=== PATIENT | male | born 1980 | race Caucasian/White ===

== ENCOUNTER 2024-01-14 18:50 | Inpatient (IN) | payer OTHER, SELFPAY ==
[2024-01-14] VITALS (7 sets, daily range): BP systolic 104–158; BP diastolic 64–85; BMI 30.9
[2024-01-14] MEDS: OMNIPAQUE 50 ML PO (14:32)
[2024-01-14 14:53] LABS: % Basophils 0.3 % (0-2); % Eosinophils 0.1 % (0-6); % Immature Granulocytes 0.5 % (0-0.5); % Lymphocytes 6.1 % (20.5-51.1); % Monocytes 9.9 % (1.7-9.3); % Neutrophils 83.1 % (42.2-75.2); Absolute Immature Granulocytes 0.1 10^3/uL (0-0.05); Absolute Lymphocytes 0.9 10^3/uL (1.2-3.4); Absolute Monocytes 1.4 10^3/uL (0.1-0.6); Absolute Neutrophils 11.9 10^3/uL (1.4-6.5); Hematocrit 32.8 % (39.0-52.0); Hemoglobin 11.3 g/dL (13.0-18.0); Mean Corp Hgb Conc. 34.5 g/dL (33.0-37.0); Mean Corpuscular Hgb 28.8 pg (27.0-31.0); Mean Corpuscular Volume 83.7 fL (80.0-94.0); Mean Platelet Volume 9.3 fL (7.4-10.4); Nucleated Red Blood Cells % 0 % (-); Platelet Count 213 10^3/uL (130-400); Red Blood Cell Count 3.92 10^6/uL (4.70-6.10); Red Cell Dist. Width 13.9 % (11.5-14.5); White Blood Cell Count 14.3 10^3/uL (4.8-10.8)
[2024-01-14 15:05] LABS: PT 15.3 Sec (11.4-14.6)
[2024-01-14 15:07] LABS: Lactic Acid 0.7 mmol/L (0.7-2.0)
--- NOTE | 2024-01-14 15:47 | ED.GENMED ---
History of Present Illness
General
Chief Complaint: Abdominal Pain
Time Seen by Provider: 01/14/24 15:34
Travel History
Have you had any contact with someone who has COVID-19?: No
Do you have any symptoms of coronavirus? Fever > 100 degrees, chills, cough, shortness of breath, sore throat, loss of taste or smell, muscle aches, or headache?: Yes
Symptoms:: fever
History of Present Illness
History of Present Illness:
43-year-old male with history of perforated diverticulitis status post subtotal colectomy with ileostomy creation presents to the emergency department due to left upper quadrant abdominal pain. He has had multiple intra-abdominal abscesses as a
complication of his, states this feels very comparable. He developed a fever over the past 2 days prompting him to come to the emergency department. Outpatient colorectal surgeon is Dr. Galvez
Past History
Past History
ED Past Medical History: HTN, Hypercholesterolemia, NIDDM, Seizures and Other (History of alcohol abuse in the past, diverticulitis, perisplenic abscess); Negative Asthma
ED Past Surgical History: Bowel resection
Social History
Tobacco: Former smoker
Alcohol: Former
Drug: None
Personal: Single (Same sex partner)
Living: with family
Employment: Employed
Family History
Family History: Other (Grandmother with colon cancer)
Review of Systems
Review of Systems
Allergies reviewed?: Yes
All Other Systems: ROS reviewed and negative except as documented in HPI and ROS
Phy Exam
Physical Exam
Physical Exam:
GEN: Well appearing, NAD, WDWN
HEENT: Oral mucosa moist, no scleral icterus
Cardiac: Regular rate
Lung: No respiratory distress, no tachypnea
Abdomen; Limited by habitus, but markedly tender to LUQ. Midline laparotomy incision scar
MSK: No gross deformity or injuries
Skin: Good color, no pallor or jaundice, no rashes
Neuro: AO x3, moves all extremities freely
Psych: Calm, cooperative
Course
Orders/Labs/Results
Orders:
Orders
01/14/24 14:30
Iohexol [Omnipaque] 50 ml .ROUTE .STK-MED ONE
01/14/24 14:32
Iohexol [Omnipaque] See Protocol PO NOW STA
01/14/24 14:37
Complete Blood Count/With Diff Urgent
Comprehensive Metabolic Panel Urgent
Lactic Acid Q4H
Comment: ON ICE, CANCEL 2ND ORDER IF FIRST LACTIC ACID LEVEL <2
Prothrombin Time Urgent
Blood Culture Q30M
MICHELLE Source: Blood/Venous
Specimen Description:
Comment: FROM 2 SEPARATE SITES
01/14/24 Dinner
Clear Liquid
At Your Request: Full Participation
Does patient need a safe tray?: No
Blood Culture Q30M
MICHELLE Source: Blood/Venous
Specimen Description:
Comment: FROM 2 SEPARATE SITES
01/14/24 15:47
CT Abd/pel W Iv And Oral Contr Urgent
Comment:
Reason For Exam: abd pain, fever, hx of ileostomy
01/14/24 17:56
Piperacillin/Tazo 4.5 Gram [Zosyn] 4.5 gram in 100 ml IV NOW
01/14/24 18:13
Admit/Transfer Patient As Directed
Co-Sign Provider:
Level of Care: Inpatient admission
Assign to:: Medical/Surgical
Physician / Group: dahlia
Diagnosis: intraabdominal abscesses
Reason for Hospitalization: intraabdominal abscesses
Expected length of stay greater than two midnights?: Yes
ELOS- Estimated Length of Stay in days: 2
I certify the patient meets the requirements for IP care: Yes
01/14/24 18:14
Code Status As Directed
Resuscitation Status: Full Code
01/14/24 20:23
0.9% Sodium Chloride 1000 ml [Nss] 1,000 ml IV 125 mls/hr
Acetaminophen [Tylenol] 650 mg PO Q4HPRN PRN
Ferrous Sulfate [Feosol] 325 mg PO BID
Heparin 5,000 units SC Q12
Multivitamin [Theragran] 1 tablet PO BID
Pantoprazole [Protonix] 40 mg PO BID
01/14/24 20:23
ColoRectal Surgery Consult Routine
Consulting Provider: Ayden Galvez
Was physician already notified: Yes
Activity As Directed
Activity Level: As Tolerated
Vital Signs As Directed
Frequency: Per unit guidelines
DX Deep Vein Thrombosis Video Routine
01/14/24 22:00
Levetiracetam Extended Release [Keppra Xr (Extended Release)] 1,000 mg PO HS
Melatonin 3 mg PO HS
01/15/24 00:00
Piperacillin/Tazo 3.375 Gram [Zosyn] 3.375 gram in 50 ml IV Q6H
01/15/24 Breakfast
NPO
Allow oral meds: Yes
Allow clear liquids: Sips of Clears
Complete Blood Count/With Diff IN AM
Comprehensive Metabolic Panel IN AM
01/15/24 08:00
Escitalopram Oxalate [Lexapro] 20 mg PO DAILY
Abnormal Lab Results
01/14/24
14:37
WBC 14.3 H 10^3/uL
(4.8-10.8)
RBC 3.92 L 10^6/uL
(4.70-6.10)
Hgb 11.3 L g/dL
(13.0-18.0)
Hct 32.8 L %
(39.0-52.0)
Abs Immat Gran (auto) 0.1 H 10^3/uL
(0-0.05)
Absolute Neuts (auto) 11.9 H 10^3/uL
(1.4-6.5)
Absolute Lymphs (auto) 0.9 L 10^3/uL
(1.2-3.4)
Absolute Monos (auto) 1.4 H 10^3/uL
(0.1-0.6)
Neutrophils % 83.1 H %
(42.2-75.2)
Lymphocytes % 6.1 L %
(20.5-51.1)
Monocytes % 9.9 H %
(1.7-9.3)
PT 15.3 H Sec
(11.4-14.6)
Sodium 134 L mmol/L
(135-145)
Chloride 97 L mmol/L
(98-107)
Glucose 104 H mg/dl
(70-99)
01/14/24 14:37
01/14/24 14:37
Vital Signs
Initial and Last Documented VS:
Initial Vital Signs
Temp Pulse Resp BP Pulse Ox
98.8 F 95 17 158/85 99
01/14/24 14:25 01/14/24 14:25 01/14/24 14:25 01/14/24 14:25 01/14/24 14:25
Last Documented Vital Signs
Temp Pulse Resp BP Pulse Ox
98.6 F 79 20 142/78 98
01/14/24 21:03 01/14/24 21:03 01/14/24 21:03 01/14/24 21:03 01/14/24 21:03
MDM/Problems Addressed
MDM/Problems Addressed:
Large LUQ abscess seen on imaging. Reviewed w/ CRS, recommend admit for IV abx and IR consultation. Pt hemodynamically stable.
*Critical Care Note
Total Time (30-74mins, 75-104mins- exclusive of procedures): Not Applicable
ED Attending Note
-
Portions of this chart may have been created with voice recognition software.� Occasional wrong word or��sound alike� substitutions may have occurred due to the inherent limitations of voice recognition software.
Discharge Plan
Departure
Patient Disposition: Admit
Date of Disposition: 01/14/24
Time of Disposition: 17:56
Admit to: Med/Surg
Presentation/result/management discussed w/ accepting MD/DO: Hospitalist
Discharge Problem:
Intra-abdominal abscess
Interventions
Interventions:
*Risk Screen - Suicide Last Done: 01/14/24 14:26
*General Assessment Last Done: 01/14/24 14:26
*Neglect/Abuse Screening Last Done: 01/14/24 14:26
ED- Fall Risk Assessment Last Done: 01/14/24 15:27
*ED COVID-19 Vaccine History Last Done: 01/14/24 14:26
*Nursing Disposition Last Done: 01/14/24 20:20
TW-[id number]-Mvtgomacwc Assessment Last Done: 01/14/24 15:39
Discharge Date and Time
Discharge Date/Time: 01/14/24 20:20
[2024-01-14 15:50] LABS: ALT (SGPT) 28 U/L (0-50); AST (SGOT) 32 U/L (17-59); Albumin 4.3 g/dl (3.5-5.0); Alkaline Phosphatase 94 U/L (38-126); Blood Urea Nitrogen 18 mg/dl (9-20); Calcium 9.6 mg/dl (8.4-10.2); Carbon Dioxide 22 mmol/L (22-30); Chloride 97 mmol/L (98-107); Estimated Creatinine Clearance > 125 ml/min; Glucose 104 mg/dl (70-99); Sodium 134 mmol/L (135-145); Total Bilirubin 1.1 mg/dl (0.2-1.3); Total Protein 7.9 g/dl (6.3-8.2); eGFR > 60.00
--- NOTE | 2024-01-14 18:17 | HPS.HSE ---
Family Physician
-
Family Physician: Joseph Heard
Chief Complaint
-
abdominal pain
History of Present Illness
43-year-old male past medical history of colonic perforation due to diverticular stricture status post exploratory laparotomy/ileostomy and recurrent intra-abdominal abscesses, parastomal hernia seizure disorder, GERD, anxiety/depression, history of
DVT presenting with epigastric/left upper quadrant abdominal pain over the past few days. Did have some nausea but no vomiting. Denies any diarrhea from the ileostomy bag. He has been having fever over the past few days.
He denies smoking or alcohol use.
Patient was last admitted in April 2023 for intra-abdominal collection status post drainage by IR.
Medical History
Past Medical History
Past Medical History: Reports Other ( colonic perforation due to diverticular stricture status post exploratory laparotomy/ileostomy and recurrent intra-abdominal abscesses, parastomal hernia seizure disorder, GERD, anxiety/depression, history of
DVT)
Past Surgical History: Reports Other ( ileostomy )
Social History
Tobacco: Non-smoker
Alcohol: None
Drug: None
Family History
Family History: Not pertinent
Allergies / Home Medications
Allergies reflects when Allergies were last updated in [employer].
Home Medications with original date entered in [employer]
Allergy/Medication List:
Allergies
Allergy/AdvReac Type Severity Reaction Status Date / Time
No Known Allergies Allergy Verified 01/14/24 14:26
Home Medications
levetiracetam 500 mg tablet,extended release 24 hr 1,000 mg (2 x 500 mg) PO HS ##60 04/28/19
pantoprazole 40 mg tablet,delayed release (Protonix) 40 mg PO BID #20 tabs 04/06/22
escitalopram oxalate 20 mg tablet 20 mg PO DAILY Depression 05/14/23
melatonin 3 mg tablet 3 mg PO HS Sleep 05/14/23
multivitamin 1 tab PO BID Supplement 05/14/23
sildenafil (pulm.hypertension) 20 mg tablet 20 mg PO DAILY PRN ed 05/14/23
ferrous sulfate 325 mg (65 mg iron) tablet (FeroSul) 325 mg PO BID Supplement 01/14/24
Review of Systems
-
History Source: Patient
A 12 point ROS was completed and negative except as noted: Yes
Constitutional: Reports No Symptoms
EENT: Reports No Symptoms
Respiratory: Reports No Symptoms
Cardiac: Reports No Symptoms
Abdomen/GI: Reports See HPI
: Reports No Symptoms
Musculoskeletal: Reports No Symptoms
Skin: Reports No Symptoms
Neurological: Reports No Symptoms
Endocrine: Reports No Symptoms
Hematologic/Lymphatic: Reports No Symptoms
Psych: Reports No Symptoms
Physical Exam
Vital Signs
Vital Signs
Temp Pulse Resp BP Pulse Ox
98.8 F 78 25 134/78 96
01/14/24 14:25 01/14/24 16:15 01/14/24 16:15 01/14/24 15:44 01/14/24 16:15
Physical Exam
General: Well Developed, Well Nourished and No Apparent Distress
HEENT: NormoCephalic, Moist mucous membranes and Atraumatic
Respiratory: Clear
Cardiac: S1/S2 and Regular Rhythm; No Murmur or Rub
GI: Soft, Non Distended, Normal Bowel Sounds and Tender (LUQ ); No Organomegaly
Rectal: Deferred by Provider
Musculoskeletal: No Clubbing, No Cyanosis and No Edema
Skin: No Rash
Neuro: Nonfocal/grossly intact
Laboratory Results
-
01/14/24 14:37
01/14/24 14:37
Laboratory Results
PT 15.3 Sec (11.4-14.6) H 01/14/24 14:37
INR 1.20 01/14/24 14:37
Lactic Acid Cancelled 01/14/24 18:30
Total Bilirubin 1.1 mg/dl (0.2-1.3) 01/14/24 14:37
AST 32 U/L (17-59) 01/14/24 14:37
ALT 28 U/L (0-50) 01/14/24 14:37
Alkaline Phosphatase 94 U/L (38-126) 01/14/24 14:37
Data Reviewed
-
Lab Data: Labs Reviewed by me
Old Records: Reviewed
Impression/Plan
-
IMPRESSION:
PLAN:
# Enlarged left upper quadrant abscess along the margin of the greater curvature of the stomach
# Possible small chronic abscess superior lateral to the right lobe of the liver
# History of colonic perforation due to diverticular stricture status post laparotomy/ileostomy
# History of recurrent intra-abdominal abscesses
-Recent abscess culture from April 2023 shows Streptococcus viridans, prior abscess cultures from March 2020 showed Klebsiella, haemophilus and prior to that stenotrophomonas, Enterococcus and coagulase-negative staph October 2019
-Check blood cultures
-IV fluids
-Zosyn
-Colorectal surgery consulted
-IR consulted for drainage of abscess
-Clear liquid diet, NPO past midnight
Large right lower quadrant anterior abdominal wall parastomal hernia
Seizure disorder
-Continue Keppra
GERD
-Continue Protonix
Anxiety/depression
-Continue Lexapro
History of DVT
Chronic anemia
-Continue iron supplement
Full code
DVT prophylaxis�heparin
N.p.o.
[2024-01-14] MEDS: ZOSYN 100 IV (18:39)
[2024-01-14] MEDS: DILAUDID 0.5 MG IV (19:41)
[2024-01-14] MEDS: FLUSH (NSS) 1 FLUSH IV (19:42)
[2024-01-14] MEDS: HEPARIN 5000 UNITS SC (20:59)
[2024-01-14] MEDS: PROTONIX 40 MG PO (20:59)
[2024-01-14] MEDS: THERAGRAN 1 TABLET PO (20:59)
[2024-01-14] MEDS: NSS 1000 IV (20:59)
[2024-01-14] MEDS: FEOSOL 325 MG PO (20:59)
--- NOTE | 2024-01-14 21:33 | PTCARENOTE ---
Received patient from ED via WC approx 21:00. Pt AAOX3. Pox: 96% RA. Call hughes within reach. Plan of care ongoing.
[2024-01-14] MEDS: MELATONIN 3 MG PO (21:46)
[2024-01-14] MEDS: KEPPRA XR (EXTENDED RELEASE) 1000 MG PO (21:46)
[2024-01-15] VITALS (14 sets, daily range): BP systolic 58–128; BP diastolic 61–99; BMI 30.7
[2024-01-15] MEDS: ZOSYN 50 IV ×4 (00:51→16:59)
[2024-01-15] MEDS: TYLENOL 650 MG PO ×4 (00:54→21:46)
[2024-01-15] MEDS: DILAUDID 0.5 MG IV ×2 (02:27→20:16)
[2024-01-15] MEDS: NSS 1000 IV ×3 (05:30→21:46)
[2024-01-15 05:31] LABS: % Basophils 0.3 % (0-2); % Eosinophils 1.1 % (0-6); % Immature Granulocytes 0.6 % (0-0.5); % Lymphocytes 10.2 % (20.5-51.1); % Monocytes 10.8 % (1.7-9.3); Absolute Eosinophils 0.1 10^3/uL (0-0.7); Absolute Immature Granulocytes 0.1 10^3/uL (0-0.05); Absolute Monocytes 1.1 10^3/uL (0.1-0.6); Absolute Neutrophils 7.6 10^3/uL (1.4-6.5); Hematocrit 30.7 % (39.0-52.0); Hemoglobin 10.1 g/dL (13.0-18.0); Mean Corp Hgb Conc. 32.9 g/dL (33.0-37.0); Mean Corpuscular Hgb 28.8 pg (27.0-31.0); Mean Corpuscular Volume 87.5 fL (80.0-94.0); Mean Platelet Volume 9.9 fL (7.4-10.4); Nucleated Red Blood Cells % 0 % (-); Platelet Count 195 10^3/uL (130-400); Red Blood Cell Count 3.51 10^6/uL (4.70-6.10); Red Cell Dist. Width 13.8 % (11.5-14.5); White Blood Cell Count 9.9 10^3/uL (4.8-10.8)
[2024-01-15 05:58] LABS: ALT (SGPT) 26 U/L (0-50); AST (SGOT) 24 U/L (17-59); Albumin 3.6 g/dl (3.5-5.0); Alkaline Phosphatase 87 U/L (38-126); Blood Urea Nitrogen 13 mg/dl (9-20); Calcium 8.7 mg/dl (8.4-10.2); Carbon Dioxide 26 mmol/L (22-30); Chloride 101 mmol/L (98-107); Estimated Creatinine Clearance > 125 ml/min; Glucose 88 mg/dl (70-99); Potassium 3.9 mmol/L (3.5-5.1); Sodium 135 mmol/L (135-145); Total Bilirubin 0.9 mg/dl (0.2-1.3); Total Protein 6.8 g/dl (6.3-8.2); eGFR > 60.00
[2024-01-15] MEDS: LEXAPRO 20 MG PO (07:43)
[2024-01-15] MEDS: PROTONIX 40 MG PO ×2 (07:43→20:16)
[2024-01-15] MEDS: HEPARIN 5000 UNITS SC ×2 (07:44→20:20)
[2024-01-15] MEDS: THERAGRAN 1 TABLET PO ×2 (07:44→20:16)
[2024-01-15] MEDS: FEOSOL 325 MG PO ×2 (07:44→20:16)
--- NOTE | 2024-01-15 08:03 | W.PN.HOSP.TC ---
Today's Communication/Plan
-
Awaiting IR intervention for drainage of abscess
Continue Dilaudid for pain
Resolving leukocytosis on Zosyn continue
CR asked to see well-known to Dr. Galvez
Assessment / Plan
Assessment / Plan
43-year-old male past medical history of colonic perforation due to diverticular stricture status post exploratory laparotomy/ileostomy and recurrent intra-abdominal abscesses, parastomal hernia seizure disorder, GERD, anxiety/depression, history of
DVT presenting with epigastric/left upper quadrant abdominal pain over the past few days. Did have some nausea but no vomiting. Denies any diarrhea from the ileostomy bag. He has been having fever over the past few days.
He denies smoking or alcohol use.
Patient was last admitted in April 2023 for intra-abdominal collection status post drainage by IR.
# Enlarged left upper quadrant abscess along the margin of the greater curvature of the stomach
# Possible small chronic abscess superior lateral to the right lobe of the liver
# History of colonic perforation due to diverticular stricture status post laparotomy/ileostomy
# History of recurrent intra-abdominal abscesses
-Recent abscess culture from April 2023 shows Streptococcus viridans, prior abscess cultures from March 2020 showed Klebsiella, haemophilus and prior to that stenotrophomonas, Enterococcus and coagulase-negative staph October 2019
-Check blood cultures
-IV fluids
-Zosyn
-Colorectal surgery consulted
-IR consulted for drainage of abscess
-Clear liquid diet, NPO past midnight
Large right lower quadrant anterior abdominal wall parastomal hernia
Seizure disorder
-Continue Keppra p.o. for now
GERD
-Continue Protonix
Anxiety/depression
-Continue Lexapro
History of DVT
Chronic anemia
-Continue iron supplement
Full code
DVT prophylaxis�heparin
N.p.o. except meds
Anticipated Discharge: 24 - 48 hours
Subjective/Interval History
-
Date of Service: January 15, 2024
. Patient is referred right talus to the left upper quadrant since he came into otherwise CSF fairly comfortable presently had relief with Dilaudid when he needed it. For IR later today for drainage
Objective Data
-
Labs:
Laboratory Results
01/15/24
04:39
WBC 9.9
Hgb 10.1 L
Hct 30.7 L
Plt Count 195
Sodium 135
Potassium 3.9
Chloride 101
Carbon Dioxide 26
BUN 13
Creatinine 0.7
Glucose 88
Calcium 8.7
Total Bilirubin 0.9
AST 24
ALT 26
Alkaline Phosphatase 87
Vital Signs:
Vital Signs
Temp Pulse Resp BP Pulse Ox
97.7 F 57 14 111/64 99
01/15/24 07:42 01/15/24 07:42 01/15/24 07:42 01/15/24 07:42 01/15/24 07:42
I&O
01/14/24 01/15/24 01/16/24
06:59 06:59 06:59
Intake Total 1350 / 1350
Balance 1350 / 1350
Review of Systems
-
History Source: Patient
Constitutional: Reports No Symptoms
Respiratory: Reports No Symptoms
Abdomen/GI: Reports Abdominal Pain (Left upper into rib cage) and Pain
Hematologic / Lymphatic: Reports No Symptoms
Physical Exam
-
General: Well Developed
HEENT: Normocephalic
Cardiac: Regular Rhythm
GI: Soft and Tender (Left upper quadrant subcostal)
Skin: Warm
Neuro: Awake and Alert
Data Reviewed
-
Total Time Spent with Patient (in minutes): 56
Labs: Labs Reviewed by me (White count down to 9.9 from 14.4/sodium trending up to 135 from 134/LFTs normal)
--- NOTE | 2024-01-15 09:16 | CON.CRS ---
Consultation
-
Date/Time Consultation Requested: 01/14/2024, 20:23
Date/Time Consultation Performed: 01/14/2024, 8:30
Requesting Provider: Carlitos Livingston MD
Performing Provider: Archie Soares MD
Reason for Consultation: intraabdominal abscess
Medical History
-
Chief Complaint: abdominal pain
History of Present Illness:
43yo male known to our service after undergoing an emergency subtotal colectomy on 03/09/19 for a perforated ascending colon and ischemic changes of the entire colon proximal to a high-grade diverticular stricture in the sigmoid colon. There was
marked contamination throughout the abdomen and he was critically ill for weeks. He went back for a washout and creation of an ileostomy. Since that time he has had several drains placed for various collections. His last drain was removed from the
left subdiaphragmatic space on 03/27/21. A few small collections remained despite antibiotics and he has been asymptomatic until 04/2024 where he was found to have 2 intraabdominal collections that was aspirated by IR. He was discharged on antibiotics
and had done well since.
He presented to the Er last night complaining of abdominal pain, fevers, and cold hands, all of which occur when he had abscesses before. He states the abdominal pain 'comes and goes'. Last night it was near his left upper armpit and was a 9/10. Now
he had no pain. He denies nausea or vomiting. He denies chest pain or SOB. He has no issues with urination. He is able to have regular bowel movements.
His WBC was 14.3 on admission but now is 9.9. He remains afebrile. CT A/P shows a large 8.4 cm abscess in the left upper quadrant of the abdomen located along the anterolateral margin of the greater curvature of the stomach which has enlarged since
05/14/2023 and a 4.9 cm loculated fluid collection superolateral to the right lobe of the liver which could be a small chronic abscess. We have been consulted for further surgical opinion.
Past Medical History
Past Medical History: Other (HTN, Psychiatric (anxiety/depression) and Seizures)
Past Surgical History: Other (03/09/2019- Exploratory laparotomy, subtotal colectomy and end ileostomy, 03/16/2019- ex lap, washout of abscesses, 03/20/2019- Exploratory laparotomy and washout of the abdomen with insertion of drains)
Social History
Tobacco: Non-Smoker
Alcohol: None
Drug: None
Family History
Family History: Reviewed & Not Pertinent
Allergies / Home Medications
Allergy/AdvReac Type Severity Reaction Status Date / Time
No Known Allergies Allergy Verified 01/14/24 14:26
�Medication �Instructions �Recorded �Confirmed �Type
levetiracetam 500 mg 1,000 mg (2 x 500 mg) PO HS ##60 04/28/19 01/14/24 Rx
tablet,extended release 24 hr
pantoprazole 40 mg tablet,delayed 40 mg PO BID #20 tabs 04/06/22 01/14/24 Rx
release (Protonix)
escitalopram oxalate 20 mg tablet 20 mg PO DAILY Depression 05/14/23 01/14/24 History
melatonin 3 mg tablet 3 mg PO HS Sleep 05/14/23 01/14/24 History
multivitamin 1 tab PO BID Supplement 05/14/23 01/14/24 History
sildenafil (pulm.hypertension) 20 20 mg PO DAILY PRN ed 05/14/23 01/14/24 History
mg tablet
ferrous sulfate 325 mg (65 mg 325 mg PO BID Supplement 01/14/24 01/14/24 History
iron) tablet (FeroSul)
Review of Systems
-
History Source: Patient
Constitutional: Fever
Abdomen/GI: Abdominal Pain
Musculoskeletal: Other (cold hands b/l)
A 10 point review of systems was completed, and was negative except as per HPI.
Physical Exam
Vital Signs
Temp 97.7 F 01/15/24 07:42
Pulse 57 01/15/24 07:42
Resp Rate 14 01/15/24 07:42
Blood pressure 111/64 01/15/24 07:42
SaO2 99 01/15/24 07:42
01/14/24 01/15/24 01/16/24
06:59 06:59 06:59
Actual Weight 103.419 kg
Body Mass Index (BMI) 30.9
Lab Results / Allergies
01/15/24 04:39
01/15/24 04:39
WBC 9.9 10^3/uL (4.8-10.8) 01/15/24 04:39
Hgb 10.1 g/dL (13.0-18.0) L 01/15/24 04:39
Hct 30.7 % (39.0-52.0) L 01/15/24 04:39
Plt Count 195 10^3/uL (130-400) 01/15/24 04:39
Abs Immat Gran (auto) 0.1 10^3/uL (0-0.05) H 01/15/24 04:39
Neutrophils % 77.0 % (42.2-75.2) H 01/15/24 04:39
Allergy/AdvReac Type Severity Reaction Status Date / Time
No Known Allergies Allergy Verified 01/14/24 14:26
Physical Exam
General: Well Developed, Well Nourished and No Apparent Distress
GI: Soft and Tender (LUQ/LLQ - mild, non distended, old midline scar in place, ileostomy warm and pink with output)
Neuro: AO x 3
Data Reviewed
-
CT Scan: Image Personally Visualized and interpreted, Report Reviewed by me and Discussed with Patient
Labs: Labs Reviewed by me, Discussed with Physician and Discussed with Patient
Old Records: Reviewed
Assessment / Plan
-
Assessment: 43 yo male with a complex PMH due to an emergency subtotal colectomy on 03/09/19 for a perforated ascending colon and ischemic changes of the entire colon proximal to a high-grade diverticular stricture in the sigmoid colon, s/p ileostomy
and IR aspirations of abscesses, presents with abdominal pain/fever and found to have a large 8.4 cm abscess in the left upper quadrant of the abdomen located along the anterolateral margin of the greater curvature of the stomach which has enlarged
since 05/14/2023 and a 4.9 cm loculated fluid collection superolateral to the right lobe of the liver which could be a small chronic abscess
Plan:
1. IR consult placed for drainage of abscesses today.
2. Remain NPO for IR procedure.
3. Continue with IV antibiotics.
4. Okay for a regular diet post IR procedure.
5. No plans for surgery at this time, discussed with patient/hospitalist. Will follow.
--- NOTE | 2024-01-15 13:50 | PTCARENOTE ---
Patient to Interventional Radiology via stretcher
--- NOTE | 2024-01-15 15:05 | W.PN.UPDATE ---
Update Note
Progress Note Update
- CT guided drain placed into LUQ abscess
- 10F drain. 60 mL of purulent fluid aspirated after placement. Samples collected/sent
- Pt tolerated well. Drain orders placed.
--- NOTE | 2024-01-15 15:56 | PTCARENOTE ---
Patient received from interventional radiology in stretcher; Ambulated into room; IVF infusing; NAYELI drain to LUQ intact with sanguinous output; Assessment ongoing
[2024-01-15] MEDS: KEPPRA XR (EXTENDED RELEASE) 1000 MG PO (21:46)
[2024-01-15] MEDS: MELATONIN 3 MG PO (21:46)
[2024-01-16] MEDS: DILAUDID 0.5 MG IV (00:01)
[2024-01-16 02:58] VITALS: BP 114/68
[2024-01-16 04:52] LABS: Hematocrit 31.9 % (39.0-52.0); Hemoglobin 10.6 g/dL (13.0-18.0); Mean Corp Hgb Conc. 33.2 g/dL (33.0-37.0); Mean Corpuscular Hgb 29.2 pg (27.0-31.0); Mean Corpuscular Volume 87.9 fL (80.0-94.0); Mean Platelet Volume 9.2 fL (7.4-10.4); Platelet Count 206 10^3/uL (130-400); Red Blood Cell Count 3.63 10^6/uL (4.70-6.10); Red Cell Dist. Width 13.7 % (11.5-14.5)
[2024-01-16] MEDS: ZOSYN 50 IV ×2 (05:10)
[2024-01-16 05:29] LABS: Blood Urea Nitrogen 12 mg/dl (9-20); Calcium 8.2 mg/dl (8.4-10.2); Carbon Dioxide 28 mmol/L (22-30); Chloride 107 mmol/L (98-107); Estimated Creatinine Clearance > 125 ml/min; Glucose 107 mg/dl (70-99); Potassium 4.1 mmol/L (3.5-5.1); Sodium 136 mmol/L (135-145); eGFR > 60.00
[2024-01-16 07:00] VITALS: BP 104/61
[2024-01-16] MEDS: THERAGRAN 1 TABLET PO (07:54)
[2024-01-16] MEDS: PROTONIX 40 MG PO (07:54)
[2024-01-16] MEDS: LEXAPRO 20 MG PO (07:55)
[2024-01-16] MEDS: HEPARIN 5000 UNITS SC (07:55)
[2024-01-16] MEDS: TYLENOL 650 MG PO (07:55)
[2024-01-16] MEDS: FEOSOL 325 MG PO (07:55)
--- NOTE | 2024-01-16 08:33 | W.PN.CRS1 ---
Addendum entered and electronically signed by Archie Soares MD 01/16/24 15:01:
Per chart clarification, unable to determine if abscess is associated with prior surgery
Original Note:
Today's Communication / Plan
-
continue IR drain
continue abx
ok for d/c from our perspective with drain study in 2-3 weeks
Assessment/Plan
-
POD#1 IR drain into LUQ collection
1. Vitals normal. WBC down to 7.0 from 9.9.
2. Continue IV antibiotics, convert to po as an outpatient.
3. Continue IR drain at home. Monitor daily outputs.
4. He will need a drain study in 2-3 weeks and a follow up appointment with Dr. Galvez. Will arrange the drain study.
5. Continue regular diet.
6. Okay for discharge from our standpoint. Follow up discussed. Discussed with hospitalist.
Subjective Data
Subjective Data
Date of Service: January 16, 2024
Patient states he feels 'great'. He has no complaints. He is tolerating a diet and has no nausea or vomiting.
Objective Data
-
Vital Signs
Temp Pulse Resp BP Pulse Ox
97.4 F 52 16 104/61 96
01/16/24 07:00 01/16/24 07:00 01/16/24 07:00 01/16/24 07:00 01/16/24 07:00
Intake & Output
01/15/24 01/16/24 01/17/24
06:59 06:59 06:59
Intake Total 1350 / 1350 4440 / 4440
Output Total 60 / 60
Balance 1350 / 1350 4380 / 4380
Intake:
Oral fluids 1380 / 1380
IV fluids (Total) 1250 / 1250 2850 / 2850
NSS 100 / 100
IV piggybacks 100 / 100 200 / 200
Amount instilled into Drain (
Total)
Left Upper Abdomen
Output:
Drain Output (Total)
Left Upper Abdomen
Other:
Number of approximated MODERATE 1
amounts of urine
Lab Results
01/16/24 04:41
01/16/24 04:41
Physical Exam
-
General: No Acute Distress and AOx3
Abdomen: Soft, Non Distended, Tender (mildly tender around the drain) and Other (drain with murky serosanguinous output)
Skin: Warm and Dry
--- NOTE | 2024-01-16 09:32 | CM ---
CM following re: discharge planning.
Reviewed pt's chart, met with pt.
Pt is a 43 year old male, admitted with primary dx of POD#1 IR drain into LUQ collection.
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
Discharge order is noted. Pt is aware. Pt stated he has been caring for drain before, knows how to manage and he stated he does not need any after care VN services. Pt stated he will drive home.
D/C plan: home with no needs. Pt will follow up with colorectal surgeon in 2-3 weeks for drain study.
No after care VN services needs identified at this time.
--- NOTE | 2024-01-16 12:25 | PN.CDI ---
CDI
- -
CDI:
Physician Documentation Request
Admit Date: 01/14/24 18:50
Dear Mirella Cagle,
Patient presents to ED with complaints of left upper quadrant abdominal pain. ED record states pt has history of perforated diverticulitis status post subtotal colectomy with ileostomy creation. ' He has had multiple intra-abdominal abscesses....'
A LUQ abscess of 8.4 cm, 4.9 cm collection near the liver was found. Drain placed by IR
Please clarify if a relationship exist between these conditions:
Yes, abscess is related to/associated with/due to prior surgery.
No, abscess is not related to/associated with/due to prior surgery
Unable to determine
Use of terms such as suspected, likely, concern for, or probable (associated with a specific diagnosis that is being evaluated, monitored, or treated as if it exists) are acceptable and can be coded in the inpatient setting, when documented at the
time of discharge.
Thank you,
Jenna Gamez RN, BSN
CDI Specialist
tiger text
Please use your independent medical judgment in providing your response.
--- NOTE | 2024-01-30 11:18 | W.DCSUMMARY ---
Discharge Summary
Discharge Data
Date of Admission: 01/14/24
Date of Discharge: 01/16/24
-
Pending Results: Yes
Additional Pending Results:
At time of discharge still pending culture results from IR drainage of abdominal abscess turned out to be positive for viridans strep as prior
Hospital Course
43-year-old male with PMH of diverticular stricture with proximal perforation s/p ex lap and subtotal colectomy with end ileostomy in 2019, has had multiple abdominal abscesses s/p IR�guided drains (all since removed) who presents with 2 to 3 days
of mild abdominal pain in the LUQ/left flank associated with fevers, WBC 14.3, CT showing LUQ abscess of 8.4 cm, 4.9 cm collection near the liver, likely chronic, and large parastomal hernia
Tmax 100.0, VSS, ABD soft, nondistended, mildly TTP in the LUQ/left flank, no R/G; ostomy pink and productive
WBC 7.9
Patient was admitted to the hospitalist service with consultation to colorectal service.
� No acute surgical intervention currently indicated; recommend nonoperative measures with IR consult for possible percutaneous drainage
�He was kept n.p.o. with IVF; okay for regular diet after IR�guided drain
� Pain control with Tylenol/Toradol, avoid narcotics if possible
� Continue IV Zosyn with transition to oral antibiotic after drainage; send fluid for culture
�CT guided drain placed into LUQ abscess
- 10F drain. 60 mL of purulent fluid aspirated after placement. Samples collected/sent/is like prior presentations grew out viridans strep results obtained after discharge
-Patient placed on a course of Augmentin 875 mg twice a day for next 10 days
- Pt tolerated well. Drain orders placed.
-Prior experience the patient knows how to manage the drain in place he was advised to follow-up with colorectal surgery in a couple weeks for drain study as an outpatient with follow-up with Dr. Galvez
Discharge Plan
-
Patient Disposition: Home (Routine Discharge)
Discharge Diagnosis/Procedures: Recurrent abdominal abscesses post history of diverticular stricture with proximal perforation and status post exploratory laparotomy and subtotal colectomy back in 2019 with end ileostomy
Diet: Low Fiber
Activity: No restrictions and As tolerated
Driving Restrictions: As prior to admission
Referrals:
Ayden Galvez MD [Active] - in two to three weeks
Joseph Heard DO [Family Provider] -
Prescriptions:
New
amoxicillin-pot clavulanate 875-125 mg tablet
1 tab PO BID Qty: 20 0RF
sodium chloride 0.9 % (flush) [Normal Saline Flush] Syringe
5 ml intra-catheter DAILY Qty: 35 0RF
Continued
levetiracetam 500 MG tablet extended release 24 hr
1,000 mg PO HS Qty: 60 0RF
pantoprazole [Protonix] 40 mg tablet,delayed release (DR/EC)
40 mg PO BID Qty: 20 0RF
multivitamin Tablet
1 tab PO BID
melatonin 3 mg Tablet
3 mg PO HS
escitalopram oxalate 20 mg tablet
20 mg PO DAILY
sildenafil (pulm.hypertension) 20 mg tablet
20 mg PO DAILY PRN (Reason: ed)
ferrous sulfate [FeroSul] 325 MG tablet
325 mg PO BID
Discharge Orders:
Discharge Patient (As Directed); Ordered 01/16/24
Ordered By: Henry Winter
Discharge Date and Time
Discharge Date/Time: 01/16/24 10:50
Print Language: INDONESIAN
== END 2024-01-16 10:50 | disposition home or self-care (01) | DRG 373 ==
LOC: 2 SOUTH 18:50
PROVIDERS: Emergency Medicine; ADMITTING PHYSICIAN Hospitalist; ATTENDING PHYSICIAN Internal Medicine; EMERGENCY PHYSICIAN Emergency Medicine; FAMILY PHYSICIAN Family Medicine; OTHER PHYSICIAN Surgery
PROC: 0W9G30Z Drainage of Peritoneal Cavity with Drainage Device, Percutaneous Approach (ICD-10-PCS; 2024-01-15)
DX: K65.1 Peritoneal abscess (principal); Z87.891 Personal history of nicotine dependence; K43.5 Parastomal hernia without obstruction or gangrene; G40.909 Epilepsy, unspecified, not intractable, without status epilepticus; K21.9 Gastro-esophageal reflux disease without esophagitis; F32.A Depression, unspecified; F41.9 Anxiety disorder, unspecified; D64.9 Anemia, unspecified
CPT/HCPCS: 49406; 74177; 80048; 80053; 83605; 85025; 85027; 85610; 87040; 87070; 87205; 96374; 99152; 99285; Q9967

== ENCOUNTER → 2024-02-20 09:54 | Outpatient (REF) | payer OTHER, SELFPAY ==
[2024-02-20 10:00] VITALS: BP 117/93; BP_SYST 71
== END ==
LOC: RADI 09:54
PROVIDERS: ATTENDING PHYSICIAN Surgery; FAMILY PHYSICIAN Family Medicine
DX: K65.1 Peritoneal abscess (principal)
CPT/HCPCS: 49424; 76080

== ENCOUNTER 2024-02-24 05:02 | Inpatient (IN) | payer OTHER, SELFPAY ==
[2024-02-24] VITALS (18 sets, daily range): BP systolic 94–134; BP diastolic 67–83; BMI 32.3; BMI 31.3
--- NOTE | 2024-02-24 03:01 | ED.GENMED ---
History of Present Illness
<AMERICA Winn - Last Filed: 02/24/24 03:14>
General
Chief Complaint: Fever
Source: patient
Exam Limitations: none
Time Seen by Provider: 02/24/24 02:49
Travel History
Have you had any contact with someone who has COVID-19?: No
Do you have any symptoms of coronavirus? Fever > 100 degrees, chills, cough, shortness of breath, sore throat, loss of taste or smell, muscle aches, or headache?: No
History of Present Illness
History of Present Illness:
43 YO M with a PMH of abscess, colostomy, diverticulitis, sepsis, and diverticulosis presenting here today for fever x 8 hours. Pt reports he had his drain removed on from an 8 cm LUQ stomach abscess. Pt states he initially started to feel
'achey' on Friday and Friday. He did not develop a fever until around 7 PM tonight. Pt complains of abdominal pain in the RUQ and LUQ (at site of where drain was removed). Last dose of Tylenol 12:15 AM. Pt reports he took two pills. Denies CP, SOB,
N, V, and diarrhea.
Past History
<AMERICA Winn - Last Filed: 02/24/24 03:14>
Past History
ED Past Medical History: HTN, Hypercholesterolemia, NIDDM, Seizures and Other (History of alcohol abuse in the past, diverticulitis, perisplenic abscess); Negative Asthma
ED Past Surgical History: Bowel resection
Social History
Tobacco: Former smoker
Alcohol: Former
Drug: None
Personal: Single (Same sex partner)
Living: with family
Employment: Employed
Family History
Family History: Other (Grandmother with colon cancer)
Review of Systems
<AMERICA Winn - Last Filed: 02/24/24 03:14>
Review of Systems
Allergies reviewed?: No
Constitutional: Reports fever and chills
EENT: Reports no symptoms
Respiratory: Reports no symptoms
Cardiac: Reports no symptoms
ABD/GI: Reports abdominal pain
: Reports no symptoms
Musculoskeletal: Reports no symptoms
Phy Exam
<ST PaAR - Last Filed: 02/24/24 03:14>
Physical Exam
Physical Exam:
Abscess site in LUQ is clean, dry, and intact. Bowel sounds present in all four quadrants.
Normal S1 and S2. Breath sounds are equal bilaterally.
General Physical Exam
General Presentation: well appearing
General age: appears stated age
General Skin: warm and dry
General Habitus: normal
General Mental: alert
General Hydration: appears well hydrated
Cardiovascular Exam
Cardiovascular Exam: regular rate/rhythm
Pulmonary Exam
Pulmonary Exam: lungs clear and no respiratory distress
Gastrointestinal Exam
Gastrointestinal Exam: normal bowel sounds, soft, non distended and tender
Course
<Cami Joshi [facility] - Last Filed: 02/24/24 03:14>
Orders/Labs/Results
Orders:
Orders
02/24/24 02:59
Urinalysis Reflex To Culture Urgent
Date Specimen was Collected: 02/24/24
Time Specimen was Collected: 03:03
02/24/24 03:11
Complete Blood Count/With Diff Urgent
Lactic Acid Q4H
Comment: CANCEL 2nd LACTIC ACID IF 1st LACTIC ACID IS LESS THAN 2
PTT Urgent
Prothrombin Time Urgent
Blood Culture Q30M
MICHELLE Source: Blood/Venous
Specimen Description:
Blood Culture Q30M
MICHELLE Source: Blood/Venous
Specimen Description:
02/24/24 03:25
Piperacillin/Tazo 4.5 Gram [Zosyn] 4.5 gram in 100 ml IV NOW
02/24/24 03:26
Abdomen/Pelvis w Contrast CT [CT Abd/pelvis W Iv Cont] Urgent
Comment:
Reason For Exam: Fever x 8 hrs, absces w/ drain removed .
02/24/24 03:32
Comprehensive Metabolic Panel Urgent
Procalcitonin Urgent
02/24/24 04:40
Admit/Transfer Patient As Directed
Co-Sign Provider:
Level of Care: Inpatient admission
Assign to:: Medical/Surgical
Physician / Group: htay
Diagnosis: sepsis suspect recurrent andominal abscess
Reason for Hospitalization: sepsis suspect recurrent andominal abscess
Expected length of stay greater than two midnights?: Yes
ELOS- Estimated Length of Stay in days: 3
I certify the patient meets the requirements for IP care: Yes
02/24/24 04:42
Code Status As Directed
Resuscitation Status: Full Code
Abnormal Lab Results
02/24/24 02/24/24
03:11 03:32
WBC 14.7 H 10^3/uL
(4.8-10.8)
RBC 3.86 L 10^6/uL
(4.70-6.10)
Hgb 11.2 L g/dL
(13.0-18.0)
Hct 32.1 L %
(39.0-52.0)
RDW 14.6 H %
(11.5-14.5)
Absolute Neuts (auto) 12.4 H 10^3/uL
(1.4-6.5)
Absolute Lymphs (auto) 1.1 L 10^3/uL
(1.2-3.4)
Absolute Monos (auto) 1.1 H 10^3/uL
(0.1-0.6)
Neutrophils % 83.9 H %
(42.2-75.2)
Lymphocytes % 7.3 L %
(20.5-51.1)
PT 15.2 H Sec
(11.4-14.6)
Glucose 110 H mg/dl
(70-99)
02/24/24 03:11
02/24/24 03:32
Vital Signs
Initial and Last Documented VS:
Initial Vital Signs
Temp Pulse Resp BP Pulse Ox
99.9 F 102 22 134/82 98
02/24/24 02:35 02/24/24 02:35 02/24/24 02:35 02/24/24 02:35 02/24/24 02:35
Last Documented Vital Signs
Temp Pulse Resp BP Pulse Ox
99.9 F 102 22 134/82 98
02/24/24 02:35 02/24/24 02:35 02/24/24 02:35 02/24/24 02:35 02/24/24 02:35
<Archie Bravo, DO - Last Filed: 02/24/24 04:57>
Orders/Labs/Results
Orders:
Orders
02/24/24 02:59
Urinalysis Reflex To Culture Urgent
Date Specimen was Collected: 02/24/24
Time Specimen was Collected: 03:03
02/24/24 03:11
Complete Blood Count/With Diff Urgent
Lactic Acid Q4H
Comment: CANCEL 2nd LACTIC ACID IF 1st LACTIC ACID IS LESS THAN 2
PTT Urgent
Prothrombin Time Urgent
Blood Culture Q30M
MICHELLE Source: Blood/Venous
Specimen Description:
Blood Culture Q30M
MICHELLE Source: Blood/Venous
Specimen Description:
02/24/24 03:25
Piperacillin/Tazo 4.5 Gram [Zosyn] 4.5 gram in 100 ml IV NOW
02/24/24 03:26
Abdomen/Pelvis w Contrast CT [CT Abd/pelvis W Iv Cont] Urgent
Comment:
Reason For Exam: Fever x 8 hrs, absces w/ drain removed .
02/24/24 03:32
Comprehensive Metabolic Panel Urgent
Procalcitonin Urgent
02/24/24 04:40
Admit/Transfer Patient As Directed
Co-Sign Provider:
Level of Care: Inpatient admission
Assign to:: Medical/Surgical
Physician / Group: htay
Diagnosis: sepsis suspect recurrent andominal abscess
Reason for Hospitalization: sepsis suspect recurrent andominal abscess
Expected length of stay greater than two midnights?: Yes
ELOS- Estimated Length of Stay in days: 3
I certify the patient meets the requirements for IP care: Yes
02/24/24 04:42
Code Status As Directed
Resuscitation Status: Full Code
Abnormal Lab Results
02/24/24 02/24/24
03:11 03:32
WBC 14.7 H 10^3/uL
(4.8-10.8)
RBC 3.86 L 10^6/uL
(4.70-6.10)
Hgb 11.2 L g/dL
(13.0-18.0)
Hct 32.1 L %
(39.0-52.0)
RDW 14.6 H %
(11.5-14.5)
Absolute Neuts (auto) 12.4 H 10^3/uL
(1.4-6.5)
Absolute Lymphs (auto) 1.1 L 10^3/uL
(1.2-3.4)
Absolute Monos (auto) 1.1 H 10^3/uL
(0.1-0.6)
Neutrophils % 83.9 H %
(42.2-75.2)
Lymphocytes % 7.3 L %
(20.5-51.1)
PT 15.2 H Sec
(11.4-14.6)
Glucose 110 H mg/dl
(70-99)
02/24/24 03:11
02/24/24 03:32
Vital Signs
Initial and Last Documented VS:
Initial Vital Signs
Temp Pulse Resp BP Pulse Ox
99.9 F 102 22 134/82 98
02/24/24 02:35 02/24/24 02:35 02/24/24 02:35 02/24/24 02:35 02/24/24 02:35
Last Documented Vital Signs
Temp Pulse Resp BP Pulse Ox
99.9 F 102 22 134/82 98
02/24/24 02:35 02/24/24 02:35 02/24/24 02:35 02/24/24 02:35 02/24/24 02:35
<AMERICA Winn - Last Filed: 02/24/24 03:14>
MDM/Problems Addressed
Differential Diagnosis Includes:
Sepsis, Abscess site infection, SBO, LBO
MDM/Problems Addressed:
Fever x 8 hours
<AMERICA Winn - Last Filed: 02/24/24 03:14>
*Critical Care Note
Total Time (30-74mins, 75-104mins- exclusive of procedures): Not Applicable
<Archie Bravo DO - Last Filed: 02/24/24 04:57>
Update Note
Update Note:
CT abdomen and pelvis with IV contrast
IMPRESSION:
Relatively similar exam in comparison to recent CT 01/14/2024, with fluid collection containing gas and with rim enhancement in the left upper quadrant adjacent to the stomach, suspicious for abscess, possibly chronic gastric perforation with
possible fistulization to the abdominal wall, status post drainage catheter removal. Consider repeat imaging with positive oral contrast to assess for leak. Surgical consultation also recommended.
Atelectasis at the lung bases. Mild cardiomegaly. Perihepatic fluid collection is unchanged.
Right parastomal hernia and colostomy. Status post subtotal bowel resection. No obstructing renal stone. Abdominal aorta is of normal caliber.
ED Attending Note
<AMERICA Winn - Last Filed: 02/24/24 03:14>
-
Portions of this chart may have been created with voice recognition software.� Occasional wrong word or��sound alike� substitutions may have occurred due to the inherent limitations of voice recognition software.
<Archie Bravo DO - Last Filed: 02/24/24 04:57>
ED Attending Note
Patient seen and examined by attending physician: Yes
I performed the substantive portion of visit, reviewed & personally made and approve the management plan that is documented in note by myself or BRANT.: Yes
ED Attending Note:
43-year-old male presents with fever, chills, and bodyaches. He states that he has had a stomach abscess and was discharged a month ago. He was doing on Friday to have his stomach drain removed. He felt fine leaving the hospital after the
procedure. He states he just started to develop low-grade fever the next day which progressed into a full fever with chills and bodyaches present. Last evening prior to arrival he states that he started to shake uncontrollably so he came into the
emergency department. He states that the drain site looks good, and he has not noticed any drainage. He states that he now has pain in the upper abdomen over the drain site and as well at the right upper quadrant. Patient was seen in conjunction
with the PA student. I have reviewed and agree with the history and treatment plan presented. On my independent physical exam, patient is awake, alert, and oriented x3. OpSite in the left upper quadrant looks clean and intact. Much scarring
throughout the external abdomen no signs of cellulitis. Colostomy bag is draining. Abdomen is otherwise soft and nontender.
Rogers texted Archie Soares, colorectal surgery.
Discharge Plan
Departure
Patient Disposition: Admit
Admit to: Telemetry
Presentation/result/management discussed w/ accepting MD/DO: Hospitalist
Discharge Problem:
Postoperative abdominal pain, Fever
Prescriptions:
No Action
levetiracetam 500 MG tablet extended release 24 hr
1,000 mg PO HS Qty: 60 0RF
pantoprazole [Protonix] 40 mg tablet,delayed release (DR/EC)
40 mg PO BID Qty: 20 0RF
multivitamin Tablet
1 tab PO BID
melatonin 3 mg Tablet
3 mg PO HS
escitalopram oxalate 20 mg tablet
20 mg PO DAILY
sildenafil (pulm.hypertension) 20 mg tablet
20 mg PO DAILY PRN (Reason: ed)
ferrous sulfate [FeroSul] 325 MG tablet
325 mg PO BID
amoxicillin-pot clavulanate 875-125 mg tablet
1 tab PO BID Qty: 20 0RF
sodium chloride 0.9 % (flush) [Normal Saline Flush] Syringe
5 ml intra-catheter DAILY Qty: 35 0RF
Referrals:
Joseph Heard DO [Family Provider] -
Interventions
Interventions:
*Risk Screen - Suicide Last Done: 02/24/24 02:35
*General Assessment Last Done: 02/24/24 03:07
*Neglect/Abuse Screening Last Done: 02/24/24 02:35
ED- Fall Risk Assessment Last Done: 02/24/24 03:07
*ED COVID-19 Vaccine History Last Done: 02/24/24 03:07
JX-Eyfbbw-Jobxtubzjq Assessment Last Done: 02/24/24 03:07
ED- Neurological Assessment Last Done: 02/24/24 03:07
ED-Skin Assessment Last Done: 02/24/24 03:07
Discharge Date and Time
Print Language: VIETNAMESE
[2024-02-24 03:20] LABS: % Basophils 0.2 % (0-2); % Eosinophils 0.5 % (0-6); % Immature Granulocytes 0.3 % (0-0.5); % Lymphocytes 7.3 % (20.5-51.1); % Monocytes 7.8 % (1.7-9.3); % Neutrophils 83.9 % (42.2-75.2); Absolute Eosinophils 0.1 10^3/uL (0-0.7); Absolute Lymphocytes 1.1 10^3/uL (1.2-3.4); Absolute Monocytes 1.1 10^3/uL (0.1-0.6); Absolute Neutrophils 12.4 10^3/uL (1.4-6.5); Hematocrit 32.1 % (39.0-52.0); Hemoglobin 11.2 g/dL (13.0-18.0); Mean Corp Hgb Conc. 34.9 g/dL (33.0-37.0); Mean Corpuscular Volume 83.2 fL (80.0-94.0); Mean Platelet Volume 9.5 fL (7.4-10.4); Nucleated Red Blood Cells % 0 % (-); Platelet Count 150 10^3/uL (130-400); Red Blood Cell Count 3.86 10^6/uL (4.70-6.10); Red Cell Dist. Width 14.6 % (11.5-14.5); White Blood Cell Count 14.7 10^3/uL (4.8-10.8)
[2024-02-24 03:32] LABS: Lactic Acid 0.8 mmol/L (0.7-2.0)
[2024-02-24 03:33] LABS: APTT 34.9 Sec (23.4-35.0); INR 1.21; PT 15.2 Sec (11.4-14.6)
[2024-02-24] MEDS: ZOSYN 100 IV (03:33)
[2024-02-24 03:57] LABS: ALT (SGPT) 34 U/L (0-50); AST (SGOT) 34 U/L (17-59); Albumin 3.9 g/dl (3.5-5.0); Alkaline Phosphatase 70 U/L (38-126); Blood Urea Nitrogen 14 mg/dl (9-20); Calcium 8.9 mg/dl (8.4-10.2); Carbon Dioxide 24 mmol/L (22-30); Chloride 104 mmol/L (98-107); Estimated Creatinine Clearance > 125 ml/min; Glucose 110 mg/dl (70-99); Potassium 4.1 mmol/L (3.5-5.1); Sodium 138 mmol/L (135-145); eGFR > 60.00
[2024-02-24 04:17] LABS: Procalcitonin 0.11 ng/ml (0.0-0.25)
--- NOTE | 2024-02-24 04:32 | HPS.HSE ---
Addendum entered and electronically signed by Zachariah Watters MD 02/24/24 06:56:
Addendum: CT AP report�Relatively similar exam in comparison to recent CT 01/14/2024, with fluid collection containing gas and with rim enhancement in the left upper quadrant adjacent to the stomach, suspicious for abscess,�
Original Note:
Family Physician
-
Family Physician: Joseph Heard
Chief Complaint
-
aching abdomn after drain removal since 02/20/24
History of Present Illness
43-year-old male with PMH of diverticular stricture with proximal perforation s/p ex lap and subtotal colectomy with end ileostomy in 2018, has had multiple abdominal abscesses s/p IR�guided drains seen at ER for evaluation of fever and abdominal
pain .
Fever onset last night
- associated with aching abdominal pain in the RUQ and LUQ (at site of where drain was removed) since Friday
- Recent 8cm LUQ stomach abscess drain was placed and removed on 02/20/24
ROS:
Denies CP, SOB, N, V, and diarrhea.
Medical History
Past Medical History
Past Medical History: Reports Other
Additional Past Medical History:
colonic perforation due to diverticular stricture status post exploratory laparotomy/ileostomy and recurrent intra-abdominal abscesses,
parastomal hernia
seizure disorder,
GERD,
anxiety/depression,
history of DVT
Past Surgical History: Reports Other
Additional Past Surgical History:
status post exploratory laparotomy/ileostomy and recurrent intra-abdominal abscesses,
Social History
Tobacco: Non-smoker
Alcohol: None
Drug: None
Family History
Family History: Not pertinent
Allergies / Home Medications
Allergies reflects when Allergies were last updated in [facility].
Home Medications with original date entered in [facility]
Allergy/Medication List:
Allergies
Allergy/AdvReac Type Severity Reaction Status Date / Time
No Known Allergies Allergy Verified 02/24/24 02:37
Home Medications
levetiracetam 500 mg tablet,extended release 24 hr 1,000 mg (2 x 500 mg) PO HS ##60 04/28/19
pantoprazole 40 mg tablet,delayed release (Protonix) 40 mg PO BID #20 tabs 04/06/22
escitalopram oxalate 20 mg tablet 20 mg PO DAILY Depression 05/14/23
melatonin 3 mg tablet 3 mg PO HS Sleep 05/14/23
multivitamin 1 tab PO BID Supplement 05/14/23
sildenafil (pulm.hypertension) 20 mg tablet 20 mg PO DAILY PRN ed 05/14/23
ferrous sulfate 325 mg (65 mg iron) tablet (FeroSul) 325 mg PO BID Supplement 01/14/24
amoxicillin 875 mg-potassium clavulanate 125 mg tablet 1 tab PO BID #20 tabs 01/16/24
sodium chloride 0.9 % (flush) (Normal Saline Flush 0.9 % injection syringe) 5 ml intra-catheter DAILY Flush drain daily with 5 mL #35 syringes 01/16/24
Review of Systems
-
Constitutional: Reports Fever
EENT: Reports No Symptoms
Respiratory: Reports No Symptoms
Cardiac: Reports No Symptoms
Abdomen/GI: Reports Abdominal Pain
: Reports No Symptoms
Musculoskeletal: Reports No Symptoms
Skin: Reports No Symptoms
Neurological: Reports No Symptoms
Endocrine: Reports No Symptoms
Hematologic/Lymphatic: Reports No Symptoms
Psych: Reports No Symptoms
Physical Exam
Vital Signs
Vital Signs
Temp Pulse Resp BP Pulse Ox
99.9 F 102 22 134/82 98
02/24/24 02:35 02/24/24 02:35 02/24/24 02:35 02/24/24 02:35 02/24/24 02:35
Physical Exam
General: No Apparent Distress, Comfortable and Conversant
HEENT: NormoCephalic, Anicteric and Moist mucous membranes
Respiratory: Clear
Cardiac: S1/S2, Regular Rhythm and Tachycardia
Breast: Deferred by me
GI: Soft, Non Tender, Non Distended, Normal Bowel Sounds and Other (multple mid line scar. Noted RLQ colostomy with fecal content , anterior abdominal wall parastomal hernia)
Genito-urinary: Deferred by me
Musculoskeletal: No Edema
Skin: Warm and Dry
Neuro: AO x 3 and No Motor Deficits
Psych: Calm
Laboratory Results
-
02/24/24 03:11
02/24/24 03:32
Laboratory Results
PT 15.2 Sec (11.4-14.6) H 02/24/24 03:11
INR 1.21 02/24/24 03:11
APTT 34.9 Sec (23.4-35.0) 02/24/24 03:11
Lactic Acid Cancelled 02/24/24 07:00
Total Bilirubin 1.0 mg/dl (0.2-1.3) 02/24/24 03:32
AST 34 U/L (17-59) 02/24/24 03:32
ALT 34 U/L (0-50) 02/24/24 03:32
Alkaline Phosphatase 70 U/L (38-126) 02/24/24 03:32
Data Reviewed
-
CT Scan: Discussed with Physician
Lab Data: Labs Reviewed by me
Old Records: Reviewed
Impression/Plan
-
Data
WCC 14.7
Hgb 11.2
nl CMP
pending PCT
pending UA
BCx sent
02/20/24
1. Near complete resolution of left upper quadrant abscess. No fistulous communication noted.
2. Abscess catheter was removed removed.
02/24/24 [address] report
01/15/24 Abdo abscess Cx
Strep viridans
Last hospitalist admission: 01/14/24 - 01/16/24
ASSESSMENT & PLAN
Sepsis suspect recurrent abdominal abscess
HX multiple abdominal abscesses s/p IR�guided drains
HX colonic perforation due to diverticular stricture status post laparotomy/ileostomy
Recent abscess culture from April 2023 shows Streptococcus viridans, prior abscess cultures from March 2020 showed Klebsiella, haemophilus and prior to that Stenotrophomonas, Enterococcus and coagulase-negative staph October 2019
- await CT AP report
- just sips o clear and IVF
- empiric Zosyn
- CRS consulted
- IR consult for drainage of abscess
Report normal fecal drainage for colostomy
Large right lower quadrant anterior abdominal wall parastomal hernia
Seizure disorder
- on [employer] Keppra
GERD
- on Protonix
Anxiety/depression
- on Lexapro
HX DVT
Chronic anemia
- stable
- cont iron supplement
DVT Px: SQH
Code: Full
IP MS
--- NOTE | 2024-02-24 04:45 | EDRN ---
Patient ambulated to the restroom to obtain a urine specimen and back in bed resting.
[2024-02-24 05:00] LABS: Urine Albumin Negative (Neg - Trace); Urine Bilirubin Negative (Negative); Urine Character Clear (Clear); Urine Color Yellow; Urine Glucose Negative (Negative); Urine Ketone Negative (Negative); Urine Leukocyte Negative (Negative); Urine Nitrite Negative (Negative); Urine Occult Blood Negative (Negative); Urine Urobilinogen Negative (Neg - 1+)
--- NOTE | 2024-02-24 05:14 | EDRN ---
Patient reports his pain is starting to increase, released pain meds from admission orders to be given while waiting on a bed.
[2024-02-24] MEDS: TORADOL 10 MG IV ×2 (05:20→11:27)
[2024-02-24] MEDS: FLUSH (NSS) 1 FLUSH IV (05:21)
--- NOTE | 2024-02-24 08:21 | PTCARENOTE ---
Pt arrived to 2S via stretcher, ambulated to bed independently, gait steady. B/L upper abdomen with tenderness to palpation. Old LUQ drain site scabbed. RLQ ostomy intact, stoma moist/pink, brown stool noted. Pt educated on NPO status. verbalized
understanding. Bed locked and in the lowest position, safety maintained. Oriented to room and call hughes.
[2024-02-24] MEDS: LEXAPRO 20 MG PO (09:43)
[2024-02-24] MEDS: FEOSOL 325 MG PO ×2 (09:43→20:21)
[2024-02-24] MEDS: NSS 1000 IV (09:44)
[2024-02-24] MEDS: HEPARIN 5000 UNITS SC ×2 (09:44→20:21)
--- NOTE | 2024-02-24 11:33 | W.PN.HOSP.TC ---
Today's Communication/Plan
-
IR consult for drain placement
ID consult
Assessment / Plan
Assessment / Plan
Gen-AAOx3, NAD
HEENT-NC, AT, anicteric, clear oral mm
Neck-supple
CV-reg, no M, +S1/S2
Lungs-clear B/L
Abd-soft, ostomy right lower quadrant, left sided tenderness
Ext-no edema
Musculoskeletal-no cyanosis, clubbing
Skin-warm and dry
Neuro-grossly non-focal
Psych-calm, cooperative
Sepsis due to intra-abdominal abscess -recurrent abscess. His drain was just removed on February 19. Will need new drain placed. Continue antibiotics. Consult ID. Check abscess culture.
Colorectal surgery consult, IR consult. Add IV Dilaudid for pain.
Patient has been dealing with ongoing and recurrent abdominal abscesses since his original abdominal surgery in 2018.
History of diverticular stricture/colonic perforation -requiring exploratory laparotomy, ileostomy.
Chronic normocytic anemia -likely chronic inflammatory anemia. Hemoglobin stable.
Parastomal hernia
Seizure disorder -continue Keppra.
GERD
History of DVT
Anxiety/depression - Lexapro.
obesity due to excess calories
Full code
Anticipated Discharge: > 48 hours
Subjective/Interval History
-
Date of Service: February 24, 2024
Patient seen and examined. Complaining of left-sided abdominal pain.
Objective Data
-
Labs:
Laboratory Results
02/24/24 02/24/24
03:11 03:32
WBC 14.7 H
Hgb 11.2 L
Hct 32.1 L
Plt Count 150
PT 15.2 H
INR 1.21
APTT 34.9
Sodium Cancelled 138
Potassium Cancelled 4.1
Chloride Cancelled 104
Carbon Dioxide Cancelled 24
BUN Cancelled 14
Creatinine Cancelled 0.7
Glucose Cancelled 110 H
Calcium Cancelled 8.9
Total Bilirubin Cancelled 1.0
AST Cancelled 34
ALT Cancelled 34
Alkaline Phosphatase Cancelled 70
Vital Signs:
Vital Signs
Temp Pulse Resp BP Pulse Ox
99.7 F 82 16 114/67 96
02/24/24 11:27 02/24/24 08:20 02/24/24 08:20 02/24/24 08:20 02/24/24 08:20
Review of Systems
-
History Source: Patient
All other systems: Reviewed and negative
[2024-02-24] MEDS: ZOSYN 50 IV ×2 (12:17→17:02)
[2024-02-24] MEDS: DILAUDID 0.25 MG IV (12:20)
--- NOTE | 2024-02-24 12:21 | CON.CRS ---
Consultation
-
Date/Time Consultation Requested: 02/24/2024, 8:12
Date/Time Consultation Performed: 02/24/2024, 08:15
Requesting Provider: Zachariah Watters MD
Performing Provider: Joseph Lam MD
Reason for Consultation: abscess
Medical History
-
Chief Complaint: abdominal pain
History of Present Illness:
43yo male known to our service after undergoing an emergency subtotal colectomy on 03/09/19 for a perforated ascending colon and ischemic changes of the entire colon proximal to a high-grade diverticular stricture in the sigmoid colon. There was
marked contamination throughout the abdomen and he was critically ill for weeks. He went back for a washout and creation of an ileostomy. Since that time he has had several drains placed for various collections. His last drain was removed from the
left subdiaphragmatic space on 03/27/21. A few small collections remained despite antibiotics and he has been asymptomatic until 04/2024 where he was found to have 2 intraabdominal collections that was aspirated by IR. He was discharged on
antibiotics. He was then admitted on 01/15/2024 due to abdominal pain/fevers/cold hands. He was found to have a LUQ abscess and a drain was placed by IR on 01/15/2024. This was subsequently removed on 02/19/2024 after a drain study was performed.
He presents to the ER yesterday with abdominal pain and fevers that began 02/21. He came to the IR due to the pain not resolving. Currently he is tender in the LUQ (near previous drain) and RUQ. WBC is 14.7. His temperature has remained afebrile.
His vitals are normal. CT of the abdomen and pelvis shows recurrent left upper quadrant abscess in the area of recently removed percutaneous drainage catheter. Abscess measures 6.1 x 3.6 x 9.2 cm, and produces some mass effect on the adjacent
stomach. Abscess is not significantly changed in size compared to prior CT dated 01/14/2024. Right lower quadrant ostomy with wide necked parastomal hernia containing multiple loops of small bowel. No evidence of incarceration. We have been
consulted for further surgical recommendations.
Past Medical History
Past Medical History: Other (Other (HTN, Psychiatric (anxiety/depression) and Seizures))
Past Surgical History: Other ((03/09/2019- Exploratory laparotomy, subtotal colectomy and end ileostomy, 03/16/2019- ex lap, washout of abscesses, 03/20/2019- Exploratory laparotomy and washout of the abdomen with insertion of drains))
Social History
Tobacco: Non-Smoker
Alcohol: None
Drug: None
Family History
Family History: Reviewed & Not Pertinent
Allergies / Home Medications
Allergy/AdvReac Type Severity Reaction Status Date / Time
No Known Allergies Allergy Verified 02/24/24 02:37
�Medication �Instructions �Recorded �Confirmed �Type
levetiracetam 500 mg 1,000 mg (2 x 500 mg) PO HS ##60 04/28/19 02/24/24 Rx
tablet,extended release 24 hr
escitalopram oxalate 20 mg tablet 20 mg PO DAILY Depression 05/14/23 02/24/24 History
melatonin 3 mg tablet 3 mg PO HS Sleep 05/14/23 02/24/24 History
multivitamin 2 tab PO DAILY Supplement 05/14/23 02/24/24 History
sildenafil (pulm.hypertension) 20 20 mg PO DAILYPRN PRN ed 05/14/23 02/24/24 History
mg tablet
ferrous sulfate 325 mg (65 mg 325 mg PO BID Supplement 01/14/24 02/24/24 History
iron) tablet (FeroSul)
acetaminophen 325 mg tablet 650 mg PO Q4HPRN PRN mild pain 02/24/24 02/24/24 History
(Tylenol)
pantoprazole 40 mg tablet,delayed 40 mg PO BID Gastrointestinal Issue 02/24/24 02/24/24 History
release (Protonix)
Review of Systems
-
History Source: Patient
All other systems: Negative unless noted
Constitutional: Fever
Abdomen/GI: Abdominal Pain
A 10 point review of systems was completed, and was negative except as per HPI.
Physical Exam
Vital Signs
Temp 99.7 F 02/24/24 11:27
Pulse 82 02/24/24 08:20
Resp Rate 16 02/24/24 08:20
Blood pressure 114/67 02/24/24 08:20
SaO2 96 02/24/24 08:20
02/23/24 02/24/24 02/25/24
06:59 06:59 06:59
Actual Weight 108 kg 104.462 kg
Body Mass Index (BMI) 31.3
Lab Results / Allergies
02/24/24 03:11
02/24/24 03:32
WBC 14.7 10^3/uL (4.8-10.8) H 02/24/24 03:11
Hgb 11.2 g/dL (13.0-18.0) L 02/24/24 03:11
Hct 32.1 % (39.0-52.0) L 02/24/24 03:11
Plt Count 150 10^3/uL (130-400) 02/24/24 03:11
Abs Immat Gran (auto) 0.0 10^3/uL (0-0.05) 02/24/24 03:11
Neutrophils % 83.9 % (42.2-75.2) H 02/24/24 03:11
Allergy/AdvReac Type Severity Reaction Status Date / Time
No Known Allergies Allergy Verified 02/24/24 02:37
Physical Exam
General: Well Developed, Well Nourished and No Apparent Distress
GI: Soft, Non Distended and Tender (LUQ/RUQ mildly tender)
Skin: Warm and Dry
Neuro: AO x 3
Data Reviewed
-
CT Scan: Image Personally Visualized and interpreted, Report Reviewed by me and Discussed with Patient
Labs: Labs Reviewed by me, Discussed with Physician and Discussed with Patient
Old Records: Reviewed
Assessment / Plan
-
Assessment: 43 yo male with a complex PMH due to an emergency subtotal colectomy on 03/09/19 for a perforated ascending colon and ischemic changes of the entire colon proximal to a high-grade diverticular stricture in the sigmoid colon, s/p ileostomy
and IR aspirations of abscesses, presents with abdominal pain/fever s/p IR drain removal found to have a recurrent left upper quadrant abscess in the area of recently removed percutaneous drainage catheter. Abscess measures 6.1 x 3.6 x 9.2 cm, and
produces some mass effect on the adjacent stomach
Plan:
1. There are no plans for surgery at this time.
2. Agree with IR consult for drain placement.
3. Advance diet as tolerated post IR drain placement.
4. Continue IV antibiotics.
5. Continue to trend WBC and vitals. Will follow.
[2024-02-24] MEDS: TYLENOL 650 MG PO (14:35)
--- NOTE | 2024-02-24 16:03 | W.PN.UPDATE ---
Update Note
Progress Note Update
CT guided abscess drain placed, yielding 90 cc of purulent fluid. Sent for C+S.
--- NOTE | 2024-02-24 16:25 | CON.ID ---
Consultation
-
Date/Time Consultation Requested: 02/24/24 11:20
Date/Time Consultation Performed: 02/24/24 16:46
Requesting Provider: Dr Gusman
Performing Provider: Dr Anne
Reason for Consultation: intraabdominal abscess
Chief Complaint / Past History
Chief Complaint
abrupt onset of abdominal pain
History of Present Illness
Mr Connors is a 43 year old male with history of 2019 diverticular stricture with proximal perforation s/p ex lap and subtotal colectomy with end ileostomy with recurrent intraabdominal abscesses. Last month he was found to have a recurrent abscess
due to VGS treated with drain placement with IR, then 02/19 when drain output had petered out, he underwent sinus tract injection with contrast and there was no evidence of leak and just minimal residual cavity. The drain was removed. He remained
relatively x48 hours and then noted relapse of pain, and relapse of fevers. No relapse of drainage from the previous drain site. No palpitations or chest pains. Presents for reassessment
Since arrival here Tmax 102.3 orally, bp stable, wbc on arrival 14, hgb 11, plt 150, L shift noted, cr 0.7, procal 0.11, blood cultures x2 in progress, CT with recurrent and enlarging abscess, no oral contrast was used, he has referral to IR for
aspiration, patient currently on zosyn, ID is consulted for assistance with management.
Past History
Additional Past Medical History:
colonic perforation due to diverticular stricture status post exploratory laparotomy/ileostomy and recurrent intra-abdominal abscesses,
parastomal hernia
seizure disorder,
GERD,
anxiety/depression,
history of DVT
Additional Past Surgical History:
status post exploratory laparotomy/ileostomy and recurrent intra-abdominal abscesse
Allergy History:
No Known Allergies Allergy (Verified 02/24/24 02:37)
Medications Reviewed: Yes
Social History
Tobacco: Non-Smoker
Alcohol: None
Drug: None
Family History
Family History: Not Pertinent
Review of Systems
Review of Systems
General: Fever and Chills
All systems: All other systems were reviewed and were negative
Vital Signs
Temp Pulse Resp BP Pulse Ox
102.2 F H 98 18 119/73 93
02/24/24 16:10 02/24/24 16:20 02/24/24 16:20 02/24/24 16:20 02/24/24 16:20
Physical Exam
Physical Exam
Constitutional: No Acute Distress
Cardiovascular: Regular Rate and S1/S2; Negative Murmur or Rub
Pulmonary: Clear and Symmetric; Negative Wheezes, Rales or Rhonchi
Gastrointestinal: Soft, Tender (diffuse), Non Distended and Normal Bowel Sounds
Skin: Warm and Dry; Negative Rash or Jaundice
Wound: Other (previous drain site healed; surgical site fully healed without dehiscence, fistula or erythema or fluctuance)
Lab / Diagnostic Study Results
02/24/24 03:11
02/24/24 03:32
Abs Immat Gran (auto) 0.0 10^3/uL (0-0.05) 02/24/24 03:11
Absolute Neuts (auto) 12.4 10^3/uL (1.4-6.5) H 02/24/24 03:11
Absolute Lymphs (auto) 1.1 10^3/uL (1.2-3.4) L 02/24/24 03:11
Absolute Monos (auto) 1.1 10^3/uL (0.1-0.6) H 02/24/24 03:11
Absolute Basos (auto) 0.0 10^3/uL (0-0.2) 02/24/24 03:11
Immature Gran % 0.3 % (0-0.5) 02/24/24 03:11
Neutrophils % 83.9 % (42.2-75.2) H 02/24/24 03:11
Lymphocytes % 7.3 % (20.5-51.1) L 02/24/24 03:11
Monocytes % 7.8 % (1.7-9.3) 02/24/24 03:11
Eosinophils % 0.5 % (0-6) 02/24/24 03:11
Basophils % 0.2 % (0-2) 02/24/24 03:11
PT 15.2 Sec (11.4-14.6) H 02/24/24 03:11
INR 1.21 02/24/24 03:11
Lactic Acid Cancelled 02/24/24 07:00
Procalcitonin 0.11 ng/ml (0.0-0.25) 02/24/24 03:32
Microbiology Results
Micro:
02/24/24 03:11 Blood Culture - Pending
Blood/Venous
02/24/24 03:11 Blood Culture - Pending
Blood/Venous
Assessment / Plan
Recurrent Intraabdominal Abscesses
H/o colonic perforation
- blood cultures x2 in progress
- fluid culture to be sent from the drain placement
- IR to consider drain replacement
- agree with zosyn
- follow clinically
--- NOTE | 2024-02-24 16:43 | PTCARENOTE ---
Pt returned from IR via stretcher, ambulated to bed independently, gait steady. LUQ NAYELI drain site C/D/I. Brown/milky output noted. Pt verbalized ' feeling much better immediately'. Bed locked and in the lowest position, safety maintained. Oriented
to room and call hughes.
[2024-02-24] MEDS: KEPPRA XR (EXTENDED RELEASE) 1000 MG PO (22:03)
[2024-02-25] MEDS: ZOSYN 50 IV ×3 (01:05→13:22)
[2024-02-25 03:15] VITALS: BP 108/65
[2024-02-25] MEDS: NSS 1000 IV (05:01)
[2024-02-25 07:46] LABS: % Basophils 0.2 % (0-2); % Eosinophils 0.8 % (0-6); % Immature Granulocytes 0.4 % (0-0.5); % Lymphocytes 10.2 % (20.5-51.1); % Monocytes 8.5 % (1.7-9.3); % Neutrophils 79.9 % (42.2-75.2); Absolute Eosinophils 0.1 10^3/uL (0-0.7); Absolute Lymphocytes 0.9 10^3/uL (1.2-3.4); Absolute Monocytes 0.8 10^3/uL (0.1-0.6); Absolute Neutrophils 7.4 10^3/uL (1.4-6.5); Hematocrit 31.5 % (39.0-52.0); Hemoglobin 10.7 g/dL (13.0-18.0); Mean Corpuscular Hgb 28.8 pg (27.0-31.0); Mean Corpuscular Volume 84.7 fL (80.0-94.0); Mean Platelet Volume 9.7 fL (7.4-10.4); Nucleated Red Blood Cells % 0 % (-); Platelet Count 167 10^3/uL (130-400); Red Blood Cell Count 3.72 10^6/uL (4.70-6.10); Red Cell Dist. Width 14.5 % (11.5-14.5); White Blood Cell Count 9.3 10^3/uL (4.8-10.8)
[2024-02-25 07:59] LABS: INR 1.22; PT 15.5 Sec (11.4-14.6)
[2024-02-25 08:20] VITALS: BP 105/61
--- NOTE | 2024-02-25 08:56 | W.PN.CRS1 ---
Today's Communication / Plan
-
Continue regular diet
Follow-up ID plan for DC
Okay for DC from CRS standpoint, follow-up Dr. Galvez in 2 to 3 weeks
Assessment/Plan
-
43-year-old male with PMH of diverticular stricture with proximal perforation s/p ex lap and subtotal colectomy with end ileostomy in 2018, has had multiple abdominal abscesses s/p IR�guided drains (most recent from 01/14, removed 02/18 who presents
with recurrent abdominal pain with fevers, WBC 14.7, CT showing reaccumulation of LUQ abscess, s/p IR guided drainage on 02/23 with 90 mL of purulent fluid, sent for culture
Tmax 102.3, afebrile since last night, VSS
WBC 9.3 from 14.7
� Continue regular diet
� Pain control with Tylenol and tramadol as needed
� Continue DVT PPx with subQ heparin
�Continue IV antibiotics; appreciate ID for DC antibiotics
� OOB/IS
� Appreciate hospitalist
� Okay for DC from CRS standpoint once medically cleared, follow-up with Dr. Galvez in 2-3 weeks; may require CT scan instead of drain study to ensure abscess resolved
Subjective Data
Subjective Data
Date of Service: February 25, 2024
No overnight events.
Pain significantly improved since drain placed
Denies nausea/vomiting. Tolerating diet.
+ Ostomy function +voiding
Objective Data
-
Vital Signs
Temp Pulse Resp BP Pulse Ox
99.5 F 80 18 105/61 96
02/25/24 08:20 02/25/24 08:20 02/25/24 08:20 02/25/24 08:20 02/25/24 08:20
Intake & Output
02/24/24 02/25/24 02/26/24
06:59 06:59 06:59
Intake Total 1969
Output Total
Balance 1887
Intake:
Oral fluids 900 / 900
IV fluids (Total) 960 / 960
IV piggybacks 100 / 100
Amount instilled into Drain (
Total)
Left Upper Abdomen Placed in IR
Output:
Drain Output (Total)
Left Upper Abdomen Placed in IR
Other:
Number of approximated MODERATE 2
amounts of urine
Lab Results
02/25/24 07:16
02/24/24 03:32
Physical Exam
-
General: No Acute Distress and AOx3
HEENT: Grossly Normal
Abdomen: Soft, Non Distended, Tender (Mildly tender near LUQ drain), No Guarding, No Rebound and Other (NAYELI-82 mL of murky serosanguineous output)
Skin: Warm and Dry
[2024-02-25] MEDS: FEOSOL 325 MG PO ×2 (09:53→21:07)
[2024-02-25] MEDS: LEXAPRO 20 MG PO (09:53)
[2024-02-25] MEDS: HEPARIN 5000 UNITS SC ×2 (09:53→21:07)
--- NOTE | 2024-02-25 11:04 | W.PN.HOSP.TC ---
Today's Communication/Plan
-
Await ID input
Assessment / Plan
Assessment / Plan
Gen-AAOx3, NAD
HEENT-NC, AT, anicteric, clear oral mm
Neck-supple
CV-reg, no M, +S1/S2
Lungs-clear B/L
Abd-soft, ostomy right lower quadrant, left sided tenderness
Ext-no edema
Musculoskeletal-no cyanosis, clubbing
Skin-warm and dry
Neuro-grossly non-focal
Psych-calm, cooperative
Sepsis due to intra-abdominal abscess -recurrent abscess. His drain was just removed on February 19. Drain placed in left upper quadrant by IR on February 23. 82 cc output overnight. Currently on IV Zosyn. ID following. Fluid culture pending, Gram stain
shows many WBCs, gram-positive cocci in chains. WBCs now normal. Afebrile.
Patient has been dealing with ongoing and recurrent abdominal abscesses since his original abdominal surgery in 2018.
History of diverticular stricture/colonic perforation -requiring exploratory laparotomy, ileostomy.
Chronic normocytic anemia -likely chronic inflammatory anemia. Hemoglobin stable.
Parastomal hernia
Seizure disorder -continue Keppra.
GERD
History of DVT
Anxiety/depression - Lexapro.
obesity due to excess calories
Full code
Dispo -can discharge when cleared by infectious disease.
Anticipated Discharge: Within 24 hours
Subjective/Interval History
-
Date of Service: February 25, 2024
Patient seen and examined. Feeling better. No complaints.
Objective Data
-
Labs:
Laboratory Results
02/25/24
07:16
WBC 9.3
Hgb 10.7 L
Hct 31.5 L
Plt Count 167
PT 15.5 H
INR 1.22
Vital Signs:
Vital Signs
Temp Pulse Resp BP Pulse Ox
99.5 F 80 18 105/61 96
02/25/24 08:20 02/25/24 08:20 02/25/24 08:20 02/25/24 08:20 02/25/24 08:20
I&O
02/24/24 02/25/24 02/26/24
06:59 06:59 06:59
Intake Total 1969
Output Total 82 / 82
Balance 1887 / 1887
Review of Systems
-
History Source: Patient
All other systems: Reviewed and negative
[2024-02-25 11:29] VITALS: BP 118/62
--- NOTE | 2024-02-25 14:41 | CM ---
CM met with pt bedside- ready for dc pending ID clearance per chart
Pt resides his SO/Mateusz in a 2nd floor condo with 3rd floor loft
13 steps up, no elevator access
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
Denies use of DMEs
PCP- Joseph Heard
Rx- [facility] [address], [place]
Discharge Disposition- home, no needs anticipated, watch ID tx plan
[2024-02-25 16:07] VITALS: BP 120/66
--- NOTE | 2024-02-25 18:22 | W.PN.ID1 ---
Date of Service
Date of Service: February 25, 2024
Today's Communication
- plan 7 days of Augmentin then stop
- follow up with surgery
Assessment / Plan
Recurrent Intraabdominal Abscesses
H/o colonic perforation
- blood cultures x2 in progress
- fluid culture again with VGS
- drain replaced
- plan 7 days of Augmentin then stop
- follow up with surgery
Chief Complaint
-: Other (intraabdominal abscess)
Subjective / Review of Systems
afebrile
bp stable
less abdominal pain
purulent drainage in the drain
without leukocytosis
cr stable
culture again with VGS
Vital Signs / Physical Exam
Vital Signs
Vital Signs
Temp Pulse Resp BP Pulse Ox
98.8 F 75 18 120/66 96
02/25/24 16:07 02/25/24 16:07 02/25/24 16:07 02/25/24 16:07 02/25/24 16:07
Physical Exam
Constitutional: No Acute Distress
Cardiovascular: Regular Rate and S1/S2; Negative Murmur or Rub
Pulmonary: Clear and Symmetric; Negative Wheezes or Rales
Gastrointestinal: Soft, Non Tender, Non Distended and Normal Bowel Sounds
Skin: Warm and Dry; Negative Rash or Jaundice
Objective Data
Lab Data
Lab Results
02/25/24 07:16
02/24/24 03:32
PT 15.5 Sec (11.4-14.6) H 02/25/24 07:16
INR 1.22 02/25/24 07:16
APTT 34.9 Sec (23.4-35.0) 02/24/24 03:11
Estimated Creat Clear > 125 ml/min 02/24/24 03:32
Lactic Acid Cancelled 02/24/24 07:00
Total Bilirubin 1.0 mg/dl (0.2-1.3) 02/24/24 03:32
AST 34 U/L (17-59) 02/24/24 03:32
ALT 34 U/L (0-50) 02/24/24 03:32
Alkaline Phosphatase 70 U/L (38-126) 02/24/24 03:32
Most recent labs reviewed.
Micro Results:
02/24/24 16:00 Wound Culture - Preliminary
Abscess Viridans Streptococcus Group
Gram Stain - Preliminary
02/24/24 03:11 Blood Culture - Preliminary
Blood/Venous No Growth in 24 hours- Final report to follow
02/24/24 03:11 Blood Culture - Preliminary
Blood/Venous No Growth in 24 hours- Final report to follow
[2024-02-25 19:55] VITALS: BP 130/68
[2024-02-25] MEDS: AUGMENTIN 875 MG/125 MG 1 TABLET PO (21:07)
[2024-02-25] MEDS: KEPPRA XR (EXTENDED RELEASE) 1000 MG PO (21:07)
[2024-02-25 23:51] VITALS: BP 116/70
[2024-02-26 07:30] VITALS: BP 114/67
[2024-02-26] MEDS: AUGMENTIN 875 MG/125 MG 1 TABLET PO (07:50)
[2024-02-26] MEDS: FEOSOL 325 MG PO (07:50)
[2024-02-26] MEDS: LEXAPRO 20 MG PO (07:50)
[2024-02-26] MEDS: HEPARIN 5000 UNITS SC (07:51)
--- NOTE | 2024-02-26 11:30 | W.PN.HOSP.TC ---
Today's Communication/Plan
-
Discharge
Assessment / Plan
Assessment / Plan
Gen-AAOx3, NAD
HEENT-NC, AT, anicteric, clear oral mm
Neck-supple
CV-reg, no M, +S1/S2
Lungs-clear B/L
Abd-soft, ostomy right lower quadrant, left sided tenderness
Ext-no edema
Musculoskeletal-no cyanosis, clubbing
Skin-warm and dry
Neuro-grossly non-focal
Psych-calm, cooperative
Sepsis due to intra-abdominal abscess -recurrent abscess. His drain was just removed on February 19. Drain placed in left upper quadrant by IR on February 23. 50 cc output overnight. Fluid culture shows viridans Streptococcus. WBCs now normal. Afebrile.
Patient has been dealing with ongoing and recurrent abdominal abscesses since his original abdominal surgery in 2018.
Infectious disease recommended 7 days of Augmentin on discharge.
History of diverticular stricture/colonic perforation -requiring exploratory laparotomy, ileostomy.
Chronic normocytic anemia -likely chronic inflammatory anemia. Hemoglobin stable.
Parastomal hernia
Seizure disorder -continue Keppra.
GERD
History of DVT
Anxiety/depression - Lexapro.
obesity due to excess calories
Full code
Dispo -medically stable for discharge. Outpatient follow-up.
32 minutes spent in discharge process.
Anticipated Discharge: Today
Subjective/Interval History
-
Date of Service: February 26, 2024
Patient seen and examined. No complaints.
Objective Data
-
Vital Signs:
Vital Signs
Temp Pulse Resp BP Pulse Ox
97.5 F 55 18 114/67 96
02/26/24 07:30 02/26/24 07:30 02/26/24 07:30 02/26/24 07:30 02/26/24 08:00
I&O
0502/26/24 02/27/24
06:59 06:59 06:59
Intake Total 1969 490 / 490
Output Total 50 / 50
Balance 1887 440 / 440
Review of Systems
-
History Source: Patient
All other systems: Reviewed and negative
--- NOTE | 2024-02-26 11:35 | W.DS.TRANS ---
DC Summary - [employer]
-
Discharge Instructions:
Discharge Diagnosis/Procedures Recurrent intra-abdominal abscess
Diet Regular
Activity As tolerated
Driving Restrictions As prior to admission
Bathing Restrictions None
Instructions:
Stand-Alone Forms:
Changes to Home Medications: No
Discharge Medications:
DC Medications w/original date entered in [facility]
levetiracetam 500 mg tablet,extended release 24 hr 1,000 mg (2 x 500 mg) PO HS ##60 04/28/19
escitalopram oxalate 20 mg tablet 20 mg PO DAILY Depression 05/14/23
melatonin 3 mg tablet 3 mg PO HS Sleep 05/14/23
multivitamin 2 tab PO DAILY Supplement 05/14/23
sildenafil (pulm.hypertension) 20 mg tablet 20 mg PO DAILYPRN PRN ed 05/14/23
ferrous sulfate 325 mg (65 mg iron) tablet (FeroSul) 325 mg PO BID Supplement 01/14/24
acetaminophen 325 mg tablet (Tylenol) 650 mg PO Q4HPRN PRN mild pain 02/24/24
pantoprazole 40 mg tablet,delayed release (Protonix) 40 mg PO BID Gastrointestinal Issue 02/24/24
amoxicillin 875 mg-potassium clavulanate 125 mg tablet 1 tab PO Q12 #14 tabs 02/26/24
Home Medication Changes
Pending Results: No
[2024-02-26 12:06] VITALS: BP 109/68
--- NOTE | 2024-02-26 12:30 | CM ---
patient with intraabominal abscess with ir placed drain.he is stable for dc home .he has declined home care.floor nurse sent patient home with flushes for his drain.
== END 2024-02-26 12:25 | disposition home or self-care (01) | DRG 871 ==
LOC: 2 SOUTH 05:02
PROVIDERS: Radiology Vascular & Interventional Radiology; ADMITTING PHYSICIAN Internal Medicine; ATTENDING PHYSICIAN Hospitalist; EMERGENCY PHYSICIAN Student in an Organized Health Care Education/Training Program; FAMILY PHYSICIAN Family Medicine; OTHER PHYSICIAN Student in an Organized Health Care Education/Training Program; OTHER PHYSICIAN Surgery
PROC: 0W9F30Z Drainage of Abdominal Wall with Drainage Device, Percutaneous Approach (ICD-10-PCS; 2024-02-24)
DX: A41.9 Sepsis, unspecified organism (principal); K65.1 Peritoneal abscess; Z87.891 Personal history of nicotine dependence; K43.5 Parastomal hernia without obstruction or gangrene; K21.9 Gastro-esophageal reflux disease without esophagitis; G40.909 Epilepsy, unspecified, not intractable, without status epilepticus; F41.9 Anxiety disorder, unspecified; F32.A Depression, unspecified; D64.9 Anemia, unspecified; E66.09 Other obesity due to excess calories; Z68.31 Body mass index [BMI] 31.0-31.9, adult
CPT/HCPCS: 49406; 74177; 80053; 81003; 83605; 84145; 85025; 85610; 85730; 87040; 87070; 87077; 87205; 96365; 99152; 99153; 99285; Q9967

== ENCOUNTER → 2024-05-05 07:09 | Outpatient (REF) | payer OTHER, SELFPAY ==
--- NOTE | 2024-05-05 07:29 | PN.IRAD.UPD ---
Update Note - IRAD
- -
Abscess drain re-sutured. site cleaned and dressed.
== END ==
LOC: RADI 07:09
PROVIDERS: ATTENDING PHYSICIAN Radiology Vascular & Interventional Radiology; FAMILY PHYSICIAN Family Medicine
DX: Z46.82 Encounter for fitting and adjustment of non-vascular catheter (principal); K65.1 Peritoneal abscess

== ENCOUNTER → 2024-05-19 08:12 | Outpatient (REF) | payer OTHER, SELFPAY | LOC: RAD 08:12 | PROVIDERS: ATTENDING PHYSICIAN Surgery; FAMILY PHYSICIAN Family Medicine | DX: K65.1 Peritoneal abscess (principal) | CPT/HCPCS: 74160; Q9967 ==

== ENCOUNTER → 2024-05-25 07:05 | Outpatient (REF) | payer OTHER, SELFPAY ==
[2024-05-25 07:20] VITALS: BP 107/77; BP_SYST 79
[2024-05-25 08:42] VITALS: BP 118/75
== END ==
LOC: RADI 07:05
PROVIDERS: ATTENDING PHYSICIAN Surgery; FAMILY PHYSICIAN Family Medicine
DX: Z46.82 Encounter for fitting and adjustment of non-vascular catheter (principal); K65.1 Peritoneal abscess
CPT/HCPCS: 49424; 76080

== ENCOUNTER 2024-05-30 16:26 | Inpatient (IN) | payer OTHER, SELFPAY ==
[2024-05-30 10:16] VITALS: BP 142/84
--- NOTE | 2024-05-30 10:41 | ED.GENMED ---
History of Present Illness
General
Chief Complaint: Abdominal Symptoms
Source: patient
Exam Limitations: none
Time Seen by Provider: 05/30/24 10:22
Nursing documentation reviewed up to this point in time: agreed with
History of Present Illness
History of Present Illness:
Patient status post NAYELI drain removal 2 days ago, returns to ED secondary to sudden onset of recurrent fever, along with abdominal discomfort since yesterday. Denies vomiting. Patient has not existing colostomy bag, which is working. Denies
trauma. Denies chest pain. Denies headache. Denies dizziness. Patient has unfortunately experienced multiple similar symptoms in the past, secondary to recurrent intra-abdominal abscess.
Past History
Past History
ED Past Medical History: HTN, Hypercholesterolemia, NIDDM, Seizures and Other (History of alcohol abuse in the past, diverticulitis, perisplenic abscess); Negative Asthma
ED Past Surgical History: Bowel resection
Social History
Tobacco: Former smoker
Alcohol: Former
Drug: None
Personal: Single (Same sex partner)
Living: with family
Employment: Employed
Family History
Family History: Other (Grandmother with colon cancer)
Review of Systems
Review of Systems
Allergies reviewed?: Yes
All Other Systems: ROS reviewed and negative except as documented in HPI and ROS
Constitutional: Reports fever
EENT: Reports no symptoms
Respiratory: Reports no symptoms
Cardiac: Reports no symptoms
ABD/GI: Reports abdominal pain and nausea; Denies vomiting
: Reports no symptoms
Musculoskeletal: Reports no symptoms
Skin: Reports no symptoms
Neurological: Reports no symptoms
Phy Exam
Physical Exam
Physical Exam:
Physical Exam
General: no apparent distress, not acutely ill. febrile.
Head: nc/at. eomi
Neck: supple. no meningeal signs.
Heart: s1/s2 regular rate and rhythm, no murmur. equal radial pulses.
Lungs: no acute respiratory distress. clear bilaterally
Abdomen: normal bowel sounds. not tender
Neuro: alert and oriented. no focal neurological deficits
Skin: no rash
Psychiatric: well kept. interactive and cooperative
Extremities: no edema. no calf tenderness.
Course
Orders/Labs/Results
Orders:
Orders
05/30/24 Breakfast
Clear Liquid
At Your Request: Full Participation
05/30/24 10:43
CT Abd/pel W Iv And Oral Contr Urgent
Comment:
Reason For Exam: abd pain w recent abdominal abscess
Iohexol [Omnipaque] See Protocol PO NOW STA
05/30/24 10:44
0.9% Sodium Chloride 500 ml [Nss] 500 ml IV BOLUS
Acetaminophen [Tylenol] 650 mg PO NOW STA
05/30/24 11:16
Complete Blood Count/With Diff Urgent
Comprehensive Metabolic Panel Urgent
Lactic Acid Q4H
Comment: CANCEL 2nd LACTIC ACID IF 1st LACTIC ACID IS LESS THAN 2
Blood Culture Urgent
MICHELLE Source: Blood/Venous
Specimen Description:
05/30/24 15:16
Piperacillin/Tazo 3.375 Gram [Zosyn] 3.375 gram in 50 ml IV NOW
05/30/24 15:43
Admit/Transfer Patient As Directed
Co-Sign Provider:
Level of Care: Inpatient admission
Assign to:: Medical/Surgical
Physician / Group: dominguez
Diagnosis: abdominal abscess
Reason for Hospitalization: abdominal abscess
Expected length of stay greater than two midnights?: Yes
ELOS- Estimated Length of Stay in days: 3
I certify the patient meets the requirements for IP care: Yes
PRN Pain Medication Management As Directed
May give lesser potent ordered pain med per pt: Yes
preference::
Protocol:: Medication orders for pain may be administered in a
manner that supports deferring to patient preference
when the pt is:
- Requesting an ordered lesser potent pain medication.
Least to most potent pain medications are defined
as: acetaminophen < NSAID < tramadol < opioids
(morphine, oxycodone, hydromorphone).
- Requesting a lesser dose of the same medication IF
ORDERED.
- Requesting a less intrusive route of administration
if both routes are prescribed by the provider (PO <
IV).
05/30/24 15:44
Code Status As Directed
Resuscitation Status: Full Code
05/30/24 16:00
HYDROmorphone [Dilaudid] 0.5 mg IV NOW STA
Pantoprazole [Protonix IV] 40 mg IV NOW STA
05/30/24 17:22
0.9% Sodium Chloride 1000 ml [Nss] 1,000 ml IV 75 mls/hr
Acetaminophen [Tylenol] 650 mg PO Q4HPRN PRN
Bisacodyl [Dulcolax] 10 mg RECTAL [id number] PRN
Docusate W/Senna [Senokot-S] 1 tablet PO BIDPRN PRN
Ondansetron Injectable [Zofran] 4 mg IV Q8HPRN PRN
Polyethylene Glycol Powder [Miralax] 17 grams PO DAILYPRN PRN
05/30/24 17:22
ColoRectal Surgery Consult Routine
Consulting Provider: Sudarshan Colmenares
Was physician already notified: Yes
INFECTIOUS DISEASE CONSULT Routine
Consulting Provider: Shruti Graf
Was physician already notified: Yes
Activity As Directed
Activity Level: As Tolerated
Vital Signs As Directed
Frequency: Per unit guidelines
DX Deep Vein Thrombosis Video Routine
05/30/24 18:00
Enoxaparin Sodium [Lovenox] 40 mg SC QPM
05/30/24 20:00
Ferrous Sulfate [Feosol] 325 mg PO BID
05/30/24 22:00
Levetiracetam Extended Release [Keppra Xr (Extended Release)] 1,000 mg PO HS
Melatonin 3 mg PO HS
Piperacillin/Tazo 3.375 Gram [Zosyn] 3.375 gram in 50 ml IV Q6H
05/31/24 06:03
Basic Metabolic Panel IN AM
Complete Blood Count/No Diff IN AM
05/31/24 08:00
Escitalopram Oxalate [Lexapro] 20 mg PO DAILY
Pantoprazole [Protonix] 40 mg PO DAILY
06/01/24 06:00
Basic Metabolic Panel IN AM
Complete Blood Count/No Diff IN AM
06/02/24 06:00
Basic Metabolic Panel IN AM
Complete Blood Count/No Diff IN AM
06/03/24 06:00
Basic Metabolic Panel IN AM
Complete Blood Count/No Diff IN AM
06/04/24 06:00
Complete Blood Count/No Diff IN AM
Abnormal Lab Results
05/30/24
11:16
WBC 12.7 H 10^3/uL
(4.8-10.8)
RBC 3.72 L 10^6/uL
(4.70-6.10)
Hgb 11.0 L g/dL
(13.0-18.0)
Hct 32.0 L %
(39.0-52.0)
Abs Immat Gran (auto) 0.1 H 10^3/uL
(0-0.05)
Absolute Neuts (auto) 10.9 H 10^3/uL
(1.4-6.5)
Absolute Lymphs (auto) 0.8 L 10^3/uL
(1.2-3.4)
Absolute Monos (auto) 0.8 H 10^3/uL
(0.1-0.6)
Neutrophils % 86.3 H %
(42.2-75.2)
Lymphocytes % 6.2 L %
(20.5-51.1)
Glucose 103 H mg/dl
(70-99)
Lactic Acid 0.6 L mmol/L
(0.7-2.0)
05/30/24 11:16
05/30/24 11:16
Vital Signs
Initial and Last Documented VS:
Initial Vital Signs
Temp Pulse Resp BP Pulse Ox
100.8 F H 121 16 142/84 98
05/30/24 10:16 05/30/24 10:16 05/30/24 10:16 05/30/24 10:16 05/30/24 10:16
Last Documented Vital Signs
Temp Pulse Resp BP Pulse Ox
99.7 F 90 16 113/74 96
05/31/24 03:50 05/31/24 00:35 05/30/24 23:45 05/31/24 00:35 05/30/24 23:45
MDM/Problems Addressed
MDM/Problems Addressed:
History, exam, and CT scan concerning for recurrent intra-abdominal abscess. ? NAYELI drain again. Will admit for further evaluation and treatment
*Critical Care Note
Total Time (30-74mins, 75-104mins- exclusive of procedures): Not Applicable
ED Attending Note
-
Portions of this chart may have been created with voice recognition software.� Occasional wrong word or��sound alike� substitutions may have occurred due to the inherent limitations of voice recognition software.
Discharge Plan
Departure
Patient Disposition: Admit
Date of Disposition: 05/30/24
Time of Disposition: 15:19
Presentation/result/management discussed w/ accepting MD/DO: Hospitalist
Discharge Problem:
Intra-abdominal abscess
Interventions
Interventions:
*Risk Screen - Suicide Last Done: 05/30/24 11:11
*General Assessment Last Done: 05/30/24 11:11
*Neglect/Abuse Screening Last Done: 05/30/24 11:11
*Nursing Disposition Last Done: 05/30/24 17:23
CF-[id number]-[id number] Assessment Last Done: 05/30/24 11:23
Discharge Date and Time
Discharge Date/Time: 05/30/24 17:24
[2024-05-30] MEDS: TYLENOL 650 MG PO ×2 (11:16→18:19)
[2024-05-30] MEDS: OMNIPAQUE 50 ML PO (11:16)
[2024-05-30] MEDS: NSS 500 IV (11:19)
[2024-05-30 11:23] VITALS: BMI 32.9
[2024-05-30 11:40] LABS: % Basophils 0.2 % (0-2); % Eosinophils 0.3 % (0-6); % Immature Granulocytes 0.4 % (0-0.5); % Lymphocytes 6.2 % (20.5-51.1); % Monocytes 6.6 % (1.7-9.3); % Neutrophils 86.3 % (42.2-75.2); Absolute Immature Granulocytes 0.1 10^3/uL (0-0.05); Absolute Lymphocytes 0.8 10^3/uL (1.2-3.4); Absolute Monocytes 0.8 10^3/uL (0.1-0.6); Absolute Neutrophils 10.9 10^3/uL (1.4-6.5); Mean Corp Hgb Conc. 34.4 g/dL (33.0-37.0); Mean Corpuscular Hgb 29.6 pg (27.0-31.0); Mean Platelet Volume 9.4 fL (7.4-10.4); Nucleated Red Blood Cells % 0 % (-); Platelet Count 182 10^3/uL (130-400); Red Blood Cell Count 3.72 10^6/uL (4.70-6.10); Red Cell Dist. Width 13.2 % (11.5-14.5); White Blood Cell Count 12.7 10^3/uL (4.8-10.8)
[2024-05-30 11:41] LABS: Lactic Acid 0.6 mmol/L (0.7-2.0)
[2024-05-30 11:44] LABS: ALT (SGPT) 38 U/L (0-50); AST (SGOT) 31 U/L (17-59); Alkaline Phosphatase 98 U/L (38-126); Blood Urea Nitrogen 13 mg/dl (9-20); Calcium 9.1 mg/dl (8.4-10.2); Carbon Dioxide 28 mmol/L (22-30); Chloride 101 mmol/L (98-107); Estimated Creatinine Clearance > 125 ml/min; Glucose 103 mg/dl (70-99); Potassium 3.9 mmol/L (3.5-5.1); Sodium 140 mmol/L (135-145); Total Protein 7.3 g/dl (6.3-8.2); eGFR > 60.00
[2024-05-30 11:47] VITALS: BP 124/84
[2024-05-30 14:37] VITALS: BP 118/75
[2024-05-30] MEDS: ZOSYN 50 IV ×2 (15:23→22:03)
--- NOTE | 2024-05-30 15:24 | HPS.HSE ---
Family Physician
-
Family Physician: Joseph Heard
Chief Complaint
-
left sided abdominal pain
History of Present Illness
44 year old with PMH for PUD, seizure, intra abdominal abscess, diverticular disease, gastritis presented to us with fever, and lefts sided abdominal pain since . His drain was removed on Friday. he started spiking fever on . his
temp was 99.8. he took Tylenol yesterday for fever and pain. today his fever was 101 with continued left sided abdominal pain. he complained of PENDLETON. denied dizzy or syncopal episode. denied chest pain, sob. denied dysuria or hematuria
CT with 10 cm left upper quadrant abscess. Patient received a dose of Zosyn in ER. Admitting for further management
Medical History
Past Medical History
Past Medical History: Reports Other
Additional Past Medical History:
Peptic ulcer disease
Seizure disorder
intra-abdominal abscess
Diverticular disease
Gastritis
Past Surgical History: Reports Other
Additional Past Surgical History:
Ex lap with incision and drains
Subtotal colectomy end ileostomy
Social History
Tobacco: Non-smoker
Alcohol: None
Drug: None
Family History
Family History: Not pertinent
Allergies / Home Medications
Allergies reflects when Allergies were last updated in [employer]
Home Medications with original date entered in [employer]
Allergy/Medication List:
Allergies
Allergy/AdvReac Type Severity Reaction Status Date / Time
No Known Allergies Allergy Verified 05/30/24 10:18
Home Medications
levetiracetam 500 mg tablet,extended release 24 hr 1,000 mg (2 x 500 mg) PO HS ##60 04/28/19
escitalopram oxalate 20 mg tablet 20 mg PO DAILY Depression 05/14/23
melatonin 3 mg tablet 3 mg PO HS Sleep 05/14/23
multivitamin 2 tab PO DAILY Supplement 05/14/23
sildenafil (pulm.hypertension) 20 mg tablet 20 mg PO DAILYPRN PRN ed 05/14/23
ferrous sulfate 325 mg (65 mg iron) tablet (FeroSul) 325 mg PO BID Supplement 01/14/24
acetaminophen 325 mg tablet (Tylenol) 650 mg PO Q4HPRN PRN mild pain 02/24/24
pantoprazole 40 mg tablet,delayed release (Protonix) 40 mg PO BID Gastrointestinal Issue 02/24/24
pantoprazole 40 mg tablet,delayed release 40 mg PO HSPRN PRN gerd 05/30/24
Review of Systems
-
Constitutional: Reports Fever
EENT: Reports No Symptoms
Respiratory: Reports Cough
Cardiac: Reports No Symptoms
Abdomen/GI: Reports Abdominal Pain
: Reports No Symptoms
Musculoskeletal: Reports No Symptoms
Skin: Reports No Symptoms
Neurological: Reports No Symptoms
Endocrine: Reports No Symptoms
Hematologic/Lymphatic: Reports No Symptoms
Psych: Reports No Symptoms
Physical Exam
Vital Signs
Vital Signs
Temp Pulse Resp BP Pulse Ox
100.8 F H 89 16 118/75 95
05/30/24 10:16 05/30/24 14:37 05/30/24 14:37 05/30/24 14:37 05/30/24 14:37
Physical Exam
General: Well Developed, Well Nourished and No Apparent Distress
HEENT: NormoCephalic, Moist mucous membranes and Atraumatic
Respiratory: Clear
Cardiac: S1/S2 and Regular Rhythm; No Murmur or Rub
GI: Soft, Non Distended, Normal Bowel Sounds and Tender (Left upper quadrant); No Organomegaly
Rectal: Deferred by Provider
Musculoskeletal: No Clubbing, No Cyanosis and No Edema
Skin: No Rash
Neuro: AO x 3 and Nonfocal/grossly intact
Psych: Calm
Laboratory Results
-
05/30/24 11:16
05/30/24 11:16
Laboratory Results
Lactic Acid Cancelled 05/30/24 14:45
Total Bilirubin 1.0 mg/dl (0.2-1.3) 05/30/24 11:16
AST 31 U/L (17-59) 05/30/24 11:16
ALT 38 U/L (0-50) 05/30/24 11:16
Alkaline Phosphatase 98 U/L (38-126) 05/30/24 11:16
Data Reviewed
-
CT Scan: Report Reviewed by me
Lab Data: Labs Reviewed by me
Impression/Plan
-
# Recurrent intra-abdominal abscesses with fever
-NAYELI removed 3 days ago
-wbc 12.7, temp 100.8
-iv Zosyn continued
-CT abdomen pelvis with 10 cm left upper quadrant abscess at the anterior margin of the fundus and body of the stomach.Colectomy with right lower abdomen ileostomy and 13 cm parastomal hernia which contains small bowel without obstruction or
strangulation. Mild splenomegaly
-blood culture sent from ER
-surgery consulted
#anemia of chronic disease
-hgb 11.0
-no active bleeding
-ctm
-Ferrous sulfate continued
#History of diverticular stricture/colonic perforation -requiring exploratory laparotomy, ileostomy.
#Parastomal hernia
#Seizure disorder -continue Keppra.
#GERD
-PPI continued
History of DVT
#Anxiety/depression - Lexapro.
Full code
[2024-05-30] MEDS: PROTONIX IV 40 MG IV (16:05)
[2024-05-30] MEDS: DILAUDID 0.5 MG IV (16:06)
--- NOTE | 2024-05-30 16:26 | W.PN.UPDATE ---
Update Note
Progress Note Update
This serves as an addendum to the H&P dictated by Santiago Young on 05/30/2024.
I saw and examined the patient.
The HEARING CARE PRACTITIONER or PA's note was reviewed and I agree with the note.
Comment:
Patient 44 years old male with history of diverticular stricture back in 2019 with proximal perforation status post exploratory lap and subtotal colectomy with end ileostomy and with recurrent intra-abdominal abscesses since then, seizures, GERD,
depression, DVT, presented to the hospital with abdominal pain and fever. Patient had last hospitalization back in December-January and was doing well until last . He had a follow-up CT scan on May 19 and it was unremarkable or at least much
improved. He still had the NAYLEI drain and it was pulled last Friday, May 25. Since last patient is complaining of abdominal pain, moderate intensity, diffuse although more pronounced on the middle and left side of the abdomen
associated with nausea no vomiting and some low-grade temperature up to 99 Fahrenheit and today up to 101 Fahrenheit. In the ER, he was noted to have a white count close to 13,000 and a temp of 100.8 Fahrenheit and heart rate up to 121 and lactate
of 0.6. He had a CT scan of the abdomen that revealed 10 cm left upper quadrant abscess. He was referred to hospitalist for further evaluation.
Physical exam:
General: Acutely ill but nontoxic
HEENT: Normocephalic, Atraumatic and Moist Mucous Membranes
Respiratory: Clear to Auscultation; Negative Wheezes, Rales or Rhonchi
Cardiac: Regular Rhythm and S1/S2
GI: Soft, Tender in mid epigastric and left side abdomen mainly and Nondistended. BS present. Ostomy in place with liquid stools.
Musculoskeletal: No Clubbing, No Cyanosis and No Edema
Neuro: Awake, Alert and Oriented
Psych: Calm
A/P:
Intra-abdominal abscess with sepsis--> IV fluids, IV antibiotics of Zosyn, surgery and ID consult, will likely require IR drainage but will defer to surgery. Pain control. Will give further recommendations based on his clinical course.
[2024-05-30 17:25] VITALS: BP 137/83; BMI 32.2
[2024-05-30] MEDS: LOVENOX 40 MG SC (18:20)
[2024-05-30] MEDS: NSS 1000 IV (18:20)
[2024-05-30] MEDS: FEOSOL 325 MG PO (20:18)
[2024-05-30] MEDS: TORADOL 15 MG IV (21:08)
[2024-05-30] MEDS: KEPPRA XR (EXTENDED RELEASE) 1000 MG PO (22:03)
[2024-05-30] MEDS: MELATONIN 3 MG PO (22:03)
[2024-05-30 23:45] VITALS: BP 108/65
[2024-05-31] VITALS (13 sets, daily range): BP systolic 18–129; BP diastolic 49–89
[2024-05-31] MEDS: DILAUDID 0.5 MG IV ×3 (00:51→11:15)
[2024-05-31] MEDS: ZOSYN 50 IV ×4 (05:25→21:34)
[2024-05-31] MEDS: DILAUDID IV (06:17)
[2024-05-31 06:31] LABS: Hematocrit 29.6 % (39.0-52.0); Mean Corp Hgb Conc. 33.8 g/dL (33.0-37.0); Mean Corpuscular Volume 85.8 fL (80.0-94.0); Mean Platelet Volume 9.3 fL (7.4-10.4); Platelet Count 182 10^3/uL (130-400); Red Blood Cell Count 3.45 10^6/uL (4.70-6.10); Red Cell Dist. Width 13.3 % (11.5-14.5); White Blood Cell Count 13.1 10^3/uL (4.8-10.8)
[2024-05-31 06:57] LABS: Blood Urea Nitrogen 12 mg/dl (9-20); Calcium 8.4 mg/dl (8.4-10.2); Carbon Dioxide 28 mmol/L (22-30); Chloride 99 mmol/L (98-107); Estimated Creatinine Clearance > 125 ml/min; Glucose 104 mg/dl (70-99); Potassium 3.6 mmol/L (3.5-5.1); Sodium 140 mmol/L (135-145); eGFR > 60.00
--- NOTE | 2024-05-31 07:39 | PTCARENOTE ---
Pt aaox3 able to make his needs known.[employer] lobby concierge made aware of pt pain level and prn meds given as needed, pt temperature range over night. IV fluids continued as ordered & IV antibiotics. Pt self care with ileostomy & draining. Plan of care
continued on pt.
[2024-05-31] MEDS: PROTONIX 40 MG PO (09:03)
[2024-05-31] MEDS: TYLENOL 650 MG PO ×2 (09:03→21:45)
[2024-05-31] MEDS: LEXAPRO 20 MG PO (09:03)
[2024-05-31] MEDS: FEOSOL 325 MG PO ×2 (09:03→20:07)
--- NOTE | 2024-05-31 11:04 | CON.ID ---
Consultation
-
Date/Time Consultation Requested: May 30, 2024
Date/Time Consultation Performed: May 31, 2024
Requesting Provider: JUANJOSE Deng
Performing Provider: Dr. Shruti Graf
Reason for Consultation: Recurrent intra-abdominal abscess
Chief Complaint / Past History
Chief Complaint
Abdominal pain
History of Present Illness
44 year old male with history of 2019 diverticular stricture with proximal perforation s/p ex lap and subtotal colectomy with end ileostomy with recurrent intraabdominal abscesses. In January 2024 LUQ abscess cx [facility] Strep, Haemophilus
parainfluenza, discharged with drain and 7 more days of Augmentin. On 05/25/24, abdominal drain removed after sinus tract injection. 2 days later, developed fever, abdominal pain mid-left upper quadrant. CT shows 10cm LUQ abscess. + chills. Poor
appetite. No diarrhea. No nausea/vomitting. T= 102.7, wbc 12.7
Past History
Additional Past Medical History:
colonic perforation due to diverticular stricture status post exploratory laparotomy/ileostomy and recurrent intra-abdominal abscesses,
parastomal hernia
seizure disorder,
GERD,
anxiety/depression,
history of DVT
Additional Past Surgical History:
status post exploratory laparotomy/ileostomy and recurrent intra-abdominal abscesse
Allergy History:
No Known Allergies Allergy (Verified 05/30/24 10:18)
Medications Reviewed: Yes
Current Antibiotics:
Zosyn d2
Social History
Tobacco: Non-Smoker
Alcohol: None
Drug: None
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
Family History
Family History: Not Pertinent
Review of Systems
Review of Systems
General: Fever, Chills and Change in Appetite
HEENT: Negative Lymphadenopathy, Sinus Problems, Headache or Pharyngitis
Cardiovascular: Negative Chest Pain or Edema
Respiratory: Negative Dyspnea or Cough
Gasteroenterology: Negative Nausea or Vomiting
Genital / Urological: Negative Dysuria
Skin / Hair / Nails: Negative Rash
All systems: All other systems were reviewed and were negative
Vital Signs
Temp Pulse Resp BP Pulse Ox
100.1 F 96 20 108/49 94
05/31/24 10:13 05/31/24 07:03 05/31/24 07:03 05/31/24 07:03 05/31/24 07:03
Physical Exam
Physical Exam
Constitutional: No Acute Distress
Eyes: No Conjunctival Hemorrhage and Sclera Anicteric
Cardiovascular: Regular Rate and S1/S2
Pulmonary: Clear
Gastrointestinal: Soft, Tender (left epigastrum ), Normal Bowel Sounds and Other (colostomy loose stool)
Extremities: Negative Edema
Neurological: AO x 3
Lab / Diagnostic Study Results
05/31/24 06:03
05/31/24 06:03
Abs Immat Gran (auto) 0.1 10^3/uL (0-0.05) H 05/30/24 11:16
Absolute Neuts (auto) 10.9 10^3/uL (1.4-6.5) H 05/30/24 11:16
Absolute Lymphs (auto) 0.8 10^3/uL (1.2-3.4) L 05/30/24 11:16
Absolute Monos (auto) 0.8 10^3/uL (0.1-0.6) H 05/30/24 11:16
Absolute Basos (auto) 0.0 10^3/uL (0-0.2) 05/30/24 11:16
Immature Gran % 0.4 % (0-0.5) 05/30/24 11:16
Neutrophils % 86.3 % (42.2-75.2) H 05/30/24 11:16
Lymphocytes % 6.2 % (20.5-51.1) L 05/30/24 11:16
Monocytes % 6.6 % (1.7-9.3) 05/30/24 11:16
Eosinophils % 0.3 % (0-6) 05/30/24 11:16
Basophils % 0.2 % (0-2) 05/30/24 11:16
Lactic Acid Cancelled 05/30/24 14:45
Microbiology Results
Micro:
05/30/24 11:16 Blood Culture - Pending
Blood/Venous
05/30/24 CT a/p: 10 cm left upper quadrant abscess at the anterior margin of the fundus and body of the stomach
Assessment / Plan
Hx diverticular stricture with proximal perforation s/p ex lap and subtotal colectomy with end ileostomy in 2019 -> multiple recurrent abcess.
# Recurrent left upper intra-abd abscess 2 days post drain removed.
# Fever, leukocytosis
- 05/31 s/p IR perc drain 100cc pus
For aerobic and anaerobic cx
- Need to determine source of recurrent abscess
-Continue Zosyn for now pending cx data.
- Follow temps/wbc
--- NOTE | 2024-05-31 11:29 | CON.CRS ---
Consultation
-
Date/Time Consultation Requested: 05/30/2024, 14:28
Date/Time Consultation Performed: 05/31/2024, 09:45
Requesting Provider: Santiago Young
Performing Provider: Archie Soares MD
Reason for Consultation: abdominal abscess
Medical History
-
Chief Complaint: abdominal pain/fevers
History of Present Illness:
43yo male known to our service after undergoing an emergency subtotal colectomy on 03/09/19 for a perforated ascending colon and ischemic changes of the entire colon proximal to a high-grade diverticular stricture in the sigmoid colon. There was
marked contamination throughout the abdomen and he was critically ill for weeks. He went back for a washout and creation of an ileostomy. Since that time he has had several drains placed for various collections. Previously he had a few small
collections despite antibiotics and he has been asymptomatic until 04/2023 where he was found to have 2 intraabdominal collections that was aspirated by IR. He was discharged on antibiotics. He was then admitted on 01/15/2024 due to abdominal
pain/fevers/cold hands. He was found to have a LUQ abscess and a drain was placed by IR on 01/15/2024. This was subsequently removed on 02/19/2024 after a drain study was performed. He was again readmitted 02/24/24 with a LUQ abscess and an IR drain
was placed. After a drain study, that drain was removed on 05/25/2024.
Since his drain removal, he states he had increasing abdominal pain over the last few days. The pain has never been quite this severe, about 9/10. He also states he had some fevers at home. He is still having flatus and output from his ileostomy. He
is urinating without difficulty. CT A/P shows 10 cm left upper quadrant abscess at the anterior margin of the fundus and body of the stomach. On admission, his WBC was 12.7 and 13.1 today. His tmax overnight was 102.9. He has been started on
antibiotics. We have been consulted for further surgical opinion.
Past Medical History
Past Medical History: Other (HTN, Psychiatric (anxiety/depression) and Seizures)
Past Surgical History: Other (03/09/2019- Exploratory laparotomy, subtotal colectomy and end ileostomy, 03/16/2019- ex lap, washout of abscesses, 03/20/2019- Exploratory laparotomy and washout of the abdomen with insertion of drains)
Social History
Tobacco: Non-Smoker
Alcohol: None
Drug: None
Family History
Family History: Reviewed & Not Pertinent
Allergies / Home Medications
Allergy/AdvReac Type Severity Reaction Status Date / Time
No Known Allergies Allergy Verified 05/30/24 10:18
�Medication �Instructions �Recorded �Confirmed �Type
levetiracetam 500 mg 1,000 mg (2 x 500 mg) PO HS ##60 04/28/19 05/30/24 Rx
tablet,extended release 24 hr
escitalopram oxalate 20 mg tablet 20 mg PO DAILY Depression 05/14/23 05/30/24 History
melatonin 3 mg tablet 3 mg PO HS Sleep 05/14/23 05/30/24 History
multivitamin 2 tab PO DAILY Supplement 05/14/23 05/30/24 History
sildenafil (pulm.hypertension) 20 20 mg PO DAILYPRN PRN ed 05/14/23 05/30/24 History
mg tablet
ferrous sulfate 325 mg (65 mg 325 mg PO BID Supplement 01/14/24 05/30/24 History
iron) tablet (FeroSul)
acetaminophen 325 mg tablet 650 mg PO Q4HPRN PRN mild pain 02/24/24 05/30/24 History
(Tylenol)
pantoprazole 40 mg tablet,delayed 40 mg PO DAILY Gastrointestinal 02/24/24 05/30/24 History
release (Protonix) Issue
pantoprazole 40 mg tablet,delayed 40 mg PO HSPRN PRN gerd 05/30/24 05/30/24 History
release
Review of Systems
-
History Source: Patient
Constitutional: Fever
Abdomen/GI: Abdominal Pain
A 10 point review of systems was completed, and was negative except as per HPI.
Physical Exam
Vital Signs
Temp 100.1 F 05/31/24 10:13
Pulse 96 05/31/24 07:03
Resp Rate 20 05/31/24 07:03
Blood pressure 108/49 05/31/24 07:03
SaO2 94 05/31/24 07:03
05/30/24 05/31/24 06/01/24
06:59 06:59 06:59
Actual Weight 107.728 kg
Body Mass Index (BMI) 32.2
Lab Results / Allergies
05/31/24 06:03
05/31/24 06:03
WBC 13.1 10^3/uL (4.8-10.8) H 05/31/24 06:03
Hgb 10.0 g/dL (13.0-18.0) L 05/31/24 06:03
Hct 29.6 % (39.0-52.0) L 05/31/24 06:03
Plt Count 182 10^3/uL (130-400) 05/31/24 06:03
Abs Immat Gran (auto) 0.1 10^3/uL (0-0.05) H 05/30/24 11:16
Neutrophils % 86.3 % (42.2-75.2) H 05/30/24 11:16
Allergy/AdvReac Type Severity Reaction Status Date / Time
No Known Allergies Allergy Verified 05/30/24 10:18
Physical Exam
General: Well Developed, Well Nourished and Comfortable
GI: Soft, Non Distended and Tender (LUQ pain - moderate, RUQ pain - moderate)
Neuro: AO x 3
Data Reviewed
-
CT Scan: Image Personally Visualized and interpreted, Report Reviewed by me and Discussed with Patient
Labs: Labs Reviewed by me, Discussed with Physician and Discussed with Patient
Old Records: Reviewed
Assessment / Plan
-
Assessment: 43 yo male with a complex PMH due to an emergency subtotal colectomy on 03/09/19 for a perforated ascending colon and ischemic changes of the entire colon proximal to a high-grade diverticular stricture in the sigmoid colon, s/p ileostomy
and IR aspirations of abscesses, presents with abdominal pain/fever s/p IR drain removal found to have a 10 cm left upper quadrant abscess at the anterior margin of the fundus and body of the stomach
Plan:
1. There are no plans for surgery at this time.
2. IR consult for drain placement.
3. Advance diet to cleras as tolerated post IR drain placement. NPO for now.
4. Continue IV antibiotics.
5. Continue to trend WBC and vitals. Will follow.
--- NOTE | 2024-05-31 12:06 | W.PN.HOSP.TC ---
Today's Communication/Plan
-
see bold
Assessment / Plan
Assessment / Plan
Gen: NAD, AAOx3.
Eyes: EOMI, PERRLA, no scleral icterus.
Neck: supple.
CV: RRR, +S1/S2, no m/r/g.
Resp: CTAB, no rales, wheezes, or rhonchi.
Abd: +BS, soft, NT, ND
Skin: No rashes.
Neuro: CN 2-12 intact, non-focal.
Psych: Normal mood and affect.
CT A/P: 10 cm left upper quadrant abscess at the anterior margin of the fundus and body of the stomach. Colectomy with right lower abdomen ileostomy and 13 cm parastomal hernia which contains small bowel without obstruction or strangulation. Mild
splenomegaly
Sepsis (POA) due to recurrent intra-abdominal abscesses with fever:
-h/o diverticular stricture/colonic perforation requiring exploratory laparotomy, ileostomy
-NAYELI removed 3 days [employer]
-cont IV Zosyn as per ID
-IR drained ~ 100cc of puss on 05/31/24, drain in place, discussed with Dr. Junior
-CRS following
Other problems:
Anemia of chronic disease: cont ferrous sulfate
Parastomal hernia
Seizure disorder: cont Keppra
GERD: cont PPI
h/o DVT
Obesity due to excess calories
Anxiety/depression: cont Lexapro
FULL/Lovenox
Total time spent on today's encounter was 50 minutes which included time spent in counseling the patient/family regarding diagnosis and treatment plan as listed above, goals of care, and symptom management. Case was discussed with nursing staff,
specialists, and care coordinators/case management. All labs and imaging personally reviewed by me. Remainder the time spent in detailed review of previous records, lab data, imaging, and other medical provider documentation.
Anticipated Discharge: > 48 hours
Subjective/Interval History
-
Date of Service: May 31, 2024
Abdominal pain is improved s/p drainage of intra-abdominal abscess.
Objective Data
-
Labs:
Laboratory Results
05/31/24
06:03
WBC 13.1 H
Hgb 10.0 L
Hct 29.6 L
Plt Count 182
Sodium 140
Potassium 3.6
Chloride 99
Carbon Dioxide 28
BUN 12
Creatinine 0.8
Glucose 104 H
Calcium 8.4
Vital Signs:
Vital Signs
Temp Pulse Resp BP Pulse Ox
100.1 F 96 20 108/49 94
05/31/24 10:13 05/31/24 07:03 05/31/24 07:03 05/31/24 07:03 05/31/24 07:03
I&O
05/30/24 05/31/24 06/01/24
06:59 06:59 06:59
Intake Total 1220 / 1220
Balance 1220 / 1220
--- NOTE | 2024-05-31 13:31 | W.PN.UPDATE ---
Update Note
Progress Note Update
US guided abdominal drainage catheter placed, yielding 100 cc of purulent fluid. Sent for C+S.
[2024-05-31] MEDS: LOVENOX 40 MG SC (16:48)
--- NOTE | 2024-05-31 18:18 | CM ---
met with patient at bedside.he lives with his in [facility] with 13 steps to enter,his bed and bath is on the first level,he amb i and is I with his adl.he has used [facility],no hx of ip rehab
PCP is dr tristian godinez and uses [facility] in [place].
PMH:colonic perforation sp exp lap/ileostomy,gerd,obseity,s dosrder on keppra,anemia of chronic disease
,parastomal hernia
patient is adm with recurrent intra abdominal abscess,on iv zosyn,ir intra abdominal drain catheter placement.patient has declined home care even though he will dc with a drain since he has had lyndsay drains in past.Plan:home with no home care servces.
[2024-05-31] MEDS: KEPPRA XR (EXTENDED RELEASE) 1000 MG PO (21:34)
[2024-05-31] MEDS: MELATONIN 3 MG PO (21:35)
[2024-06-01] MEDS: ZOSYN 50 IV ×4 (05:07→21:04)
[2024-06-01 07:30] VITALS: BP 125/75
[2024-06-01] MEDS: PROTONIX 40 MG PO (07:39)
[2024-06-01] MEDS: LEXAPRO 20 MG PO (07:39)
[2024-06-01] MEDS: FEOSOL 325 MG PO ×2 (07:39→21:03)
[2024-06-01] MEDS: TYLENOL 650 MG PO ×2 (07:42→15:17)
[2024-06-01 09:03] LABS: Hematocrit 32.5 % (39.0-52.0); Hemoglobin 11.1 g/dL (13.0-18.0); Mean Corp Hgb Conc. 34.2 g/dL (33.0-37.0); Mean Corpuscular Hgb 29.8 pg (27.0-31.0); Mean Corpuscular Volume 87.1 fL (80.0-94.0); Mean Platelet Volume 9.3 fL (7.4-10.4); Platelet Count 203 10^3/uL (130-400); Red Blood Cell Count 3.73 10^6/uL (4.70-6.10); Red Cell Dist. Width 12.9 % (11.5-14.5); White Blood Cell Count 10.6 10^3/uL (4.8-10.8)
[2024-06-01 09:17] LABS: Blood Urea Nitrogen 12 mg/dl (9-20); Calcium 9.1 mg/dl (8.4-10.2); Carbon Dioxide 24 mmol/L (22-30); Chloride 99 mmol/L (98-107); Estimated Creatinine Clearance > 125 ml/min; Glucose 87 mg/dl (70-99); Potassium 4.2 mmol/L (3.5-5.1); Sodium 139 mmol/L (135-145); eGFR > 60.00
--- NOTE | 2024-06-01 10:59 | W.PN.CRS1 ---
Today's Communication / Plan
-
As below
Assessment/Plan
-
43-year-old male with PMH of diverticular stricture with proximal perforation s/p ex lap and subtotal colectomy with end ileostomy in 2019, has had multiple abdominal abscesses s/p IR�guided drains (most recently, underwent drain study and drain
removal on 05/25) who presents with recurrent abdominal pain with fevers, WBC 12.7, CT showing reaccumulation of 10cm LUQ abscess
05/31 IR-guided drain, 100mL pus
AFVSS
WBC 10.6 from 13.1
� Regular diet
� Pain control with Tylenol, recommend tramadol as needed
� Continue DVT PPx with Lovenox
�Continue IV Zosyn; appreciate ID
� OOB/IS
� Appreciate hospitalist
Dispo�recommend colorectal standpoint
Subjective Data
Subjective Data
Date of Service: June 01, 2024
No overnight events.
Pain significantly better since drain placement.
Denies nausea/vomiting. Tolerating diet.
+ Ostomy function +voiding
Pt is OOB.
Objective Data
-
Vital Signs
Temp Pulse Resp BP Pulse Ox
98.3 F 73 16 125/75 98
06/01/24 07:30 06/01/24 07:30 06/01/24 07:30 06/01/24 07:30 06/01/24 10:00
Intake & Output
05/31/24 06/01/24 06/02/24
06:59 06:59 06:59
Intake Total 1220 / 1220 490 / 490
Output Total 40 / 40
Balance 1220 / 1220 450 / 450
Intake:
Oral fluids 120 / 120 480 / 480
IV fluids (Total) 1000 / 1000
IV piggybacks 100 / 100
Amount instilled into Drain (
Total)
Left Upper Abdomen Christian-
Lance Placed in IR
Output:
Drain Output (Total)
Left Upper Abdomen Christian-
Lance Placed in IR
Other:
Number of approximated MODERATE 2 2
amounts of urine
Number of approximated LARGE 1
amounts of urine
Lab Results
06/01/24 08:40
06/01/24 08:40
Physical Exam
-
General: No Acute Distress and AOx3
HEENT: Grossly Normal
Abdomen: Soft, Non Distended, Tender (Appropriately tender near IR drain), No Guarding, No Rebound and Other (IR drain-40 mL thick serosanguineous)
Skin: Warm and Dry
--- NOTE | 2024-06-01 11:14 | W.PN.HOSP.TC ---
Today's Communication/Plan
-
see bold
Assessment / Plan
Assessment / Plan
Gen: remains NAD, AAOx3.
Eyes: EOMI, PERRLA, no scleral icterus.
Neck: supple.
CV: RRR, +S1/S2, no m/r/g.
Resp: CTAB, no rales, wheezes, or rhonchi.
Abd: remains +BS, soft, NT, ND
Skin: No rashes.
Neuro: remains CN 2-12 intact, non-focal.
Psych: Normal mood and affect.
05/31/24 13:17 Abscess Wound Culture - Preliminary
No growth
05/31/24 13:17 Abscess Gram Stain - Preliminary
05/30/24 11:16 Blood/Venous Blood Culture - Preliminary
No Growth in 24 hours- Final report to follow
CT A/P: 10 cm left upper quadrant abscess at the anterior margin of the fundus and body of the stomach. Colectomy with right lower abdomen ileostomy and 13 cm parastomal hernia which contains small bowel without obstruction or strangulation. Mild
splenomegaly
Sepsis (POA) due to recurrent intra-abdominal abscesses with fever:
-h/o diverticular stricture/colonic perforation requiring exploratory laparotomy, ileostomy
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
-cont IV Zosyn as per ID
-IR drained 100cc of puss on 05/31/24
-CRS following
Other problems:
Anemia of chronic disease: cont ferrous sulfate
Parastomal hernia
Seizure disorder: cont Keppra
GERD: cont PPI
h/o DVT
Obesity due to excess calories
Anxiety/depression: cont Lexapro
FULL/Lovenox
Anticipated Discharge: Within 24 hours
Subjective/Interval History
-
Date of Service: June 01, 2024
No new complaints.
Objective Data
-
Labs:
Laboratory Results
06/01/24
08:40
WBC 10.6
Hgb 11.1 L
Hct 32.5 L
Plt Count 203
Sodium 139
Potassium 4.2
Chloride 99
Carbon Dioxide 24
BUN 12
Creatinine 0.7
Glucose 87
Calcium 9.1
Vital Signs:
Vital Signs
Temp Pulse Resp BP Pulse Ox
98.3 F 73 16 125/75 98
06/01/24 07:30 06/01/24 07:30 06/01/24 07:30 06/01/24 07:30 06/01/24 10:00
I&O
05/31/24 06/01/24 06/02/24
06:59 06:59 06:59
Intake Total 1220 / 1220 490 / 490 60 / 60
Output Total 40 / 40
Balance 1220 / 1220 450 / 450 60 / 60
--- NOTE | 2024-06-01 13:00 | W.PN.ID1 ---
Date of Service
Date of Service: June 01, 2024
Today's Communication
Await cx data.
Assessment / Plan
Hx diverticular stricture with proximal perforation s/p ex lap and subtotal colectomy with end ileostomy in 2019 -> multiple recurrent abcesses.
# Recurrent left upper intra-abd abscess 2 days post drain removed.
# Fever, leukocytosis- resolved
- unclear etiology of recurrent abscesses, per Colorectal
- 05/31 s/p IR perc drain 100cc pus
Gram stain: GPC in chains, cx neg to date
-Continue Zosyn for now pending cx data.
Chief Complaint
-: Fever and Other (abscess)
Subjective / Review of Systems
Feeling better after perc drain.
Vital Signs / Physical Exam
Vital Signs
Vital Signs
Temp Pulse Resp BP Pulse Ox
98.3 F 73 16 125/75 98
06/01/24 07:30 06/01/24 07:30 06/01/24 07:30 06/01/24 07:30 06/01/24 10:00
Physical Exam
Constitutional: No Acute Distress and Comfortable
Gastrointestinal: Soft, Non Tender and Other (LUQ drain cloudy serosanguinous fluid)
Neurological: AO x 3
Objective Data
Lab Data
Lab Results
06/01/24 08:40
06/01/24 08:40
Estimated Creat Clear > 125 ml/min 06/01/24 08:40
Lactic Acid Cancelled 05/30/24 14:45
Total Bilirubin 1.0 mg/dl (0.2-1.3) 05/30/24 11:16
AST 31 U/L (17-59) 05/30/24 11:16
ALT 38 U/L (0-50) 05/30/24 11:16
Alkaline Phosphatase 98 U/L (38-126) 05/30/24 11:16
Most recent labs reviewed.
Micro Results:
05/30/24 11:16 Blood Culture - Preliminary
Blood/Venous No Growth in 48 hours- Final report to follow
05/31/24 13:17 Wound Culture - Preliminary
Abscess No growth
Gram Stain - Preliminary
05/30/24 CT a/p: 10 cm left upper quadrant abscess at the anterior margin of the fundus and body of the stomach
[2024-06-01 15:17] VITALS: BP 123/76
--- NOTE | 2024-06-01 17:13 | CM ---
Spoke with pt in room .
Pt has a NAYELI drain that is flushed daily. Offered VN he refused he said he has a script for flushes and knows how to flush.
Pt believes he will be dc with po abx.
Pt drove himself he will drive him self .
PLAN Home declined VN
[2024-06-01] MEDS: LOVENOX 40 MG SC (17:28)
[2024-06-01] MEDS: MELATONIN 3 MG PO (21:03)
[2024-06-01] MEDS: KEPPRA XR (EXTENDED RELEASE) 1000 MG PO (21:03)
[2024-06-01 23:42] VITALS: BP 108/71
[2024-06-02] MEDS: ZOSYN 50 IV ×2 (04:51→09:37)
[2024-06-02 06:34] LABS: Hematocrit 30.4 % (39.0-52.0); Hemoglobin 10.4 g/dL (13.0-18.0); Mean Corp Hgb Conc. 34.2 g/dL (33.0-37.0); Mean Corpuscular Hgb 29.1 pg (27.0-31.0); Mean Corpuscular Volume 85.2 fL (80.0-94.0); Mean Platelet Volume 9.7 fL (7.4-10.4); Platelet Count 238 10^3/uL (130-400); Red Blood Cell Count 3.57 10^6/uL (4.70-6.10); Red Cell Dist. Width 12.7 % (11.5-14.5); White Blood Cell Count 5.2 10^3/uL (4.8-10.8)
[2024-06-02 07:03] LABS: Blood Urea Nitrogen 16 mg/dl (9-20); Calcium 8.5 mg/dl (8.4-10.2); Carbon Dioxide 28 mmol/L (22-30); Chloride 103 mmol/L (98-107); Estimated Creatinine Clearance > 125 ml/min; Glucose 109 mg/dl (70-99); Potassium 3.8 mmol/L (3.5-5.1); Sodium 140 mmol/L (135-145); eGFR > 60.00
[2024-06-02 07:30] VITALS: BP 114/73
[2024-06-02] MEDS: LEXAPRO 20 MG PO (08:34)
[2024-06-02] MEDS: PROTONIX 40 MG PO (08:34)
[2024-06-02] MEDS: FEOSOL 325 MG PO (08:34)
--- NOTE | 2024-06-02 08:39 | W.PN.CRS1 ---
Today's Communication / Plan
-
dispo per primary team
follow up with Dr. Galvez
Assessment/Plan
-
43-year-old male with PMH of diverticular stricture with proximal perforation s/p ex lap and subtotal colectomy with end ileostomy in 2018, has had multiple abdominal abscesses s/p IR�guided drains (most recently, underwent drain study and drain
removal on 05/25) who presents with recurrent abdominal pain with fevers, WBC 12.7, CT showing reaccumulation of 10cm LUQ abscess
05/31 IR-guided drain, 100mL pus
AFVSS
WBC 5.2 from 10.6
� Continue regular diet
� Pain control with Tylenol, recommend tramadol as needed
� Continue DVT PPx with Lovenox
�Continue IV Zosyn; appreciate ID
� OOB/IS
� Appreciate hospitalist
- Dispo�recommend colorectal standpoint - follow up with Dr. Galvez as an outpatient
Subjective Data
Subjective Data
Date of Service: June 02, 2024
Patient states he feels well. He is eating a diet. His stoma has output. He denies nausea or vomiting. He has no complaints.
Objective Data
-
Vital Signs
Temp Pulse Resp BP Pulse Ox
99.2 F 81 20 108/71 99
06/01/24 23:42 06/01/24 23:42 06/01/24 23:42 06/01/24 23:42 06/02/24 03:16
Intake & Output
06/01/24 06/02/24 06/03/24
06:59 06:59 06:59
Intake Total 490 / 490 160 / 160
Output Total 40 / 40 20 / 20
Balance 450 / 450 140 / 140
Intake:
Oral fluids 480 / 480
IV piggybacks 150 / 150
Amount instilled into Drain (
Total)
Left Upper Abdomen Christian-
Lance Placed in IR
Output:
Drain Output (Total)
Left Upper Abdomen Christian-
Lance Placed in IR
Other:
Number of approximated MODERATE 2 3
amounts of urine
Number of approximated LARGE 1
amounts of urine
Lab Results
06/02/24 04:49
06/02/24 04:49
Physical Exam
-
General: No Acute Distress and AOx3
Abdomen: Soft, Non Distended, Non Tender and Other (lyndsay drain with serosanguinous output)
--- NOTE | 2024-06-02 09:35 | W.PN.HOSP.TC ---
Addendum entered and electronically signed by Uday Villalta MD 06/02/24 12:46:
Discharge on 2 weeks of empiric moxifloxacin as per discussion with infectious disease.
Total time spent on d/c = 36 min. This included today's physical exam, progress note, review of laboratory and diagnostic data, preparation of discharge documents and prescriptions, and discussions about the pt's hospital course and discharge plan
with the patient and other medical anthropology director involved in the patient's care.
Original Note:
Today's Communication/Plan
-
see bold
Assessment / Plan
Assessment / Plan
Gen: Continues to remain NAD, AAOx3.
Eyes: EOMI, PERRLA, no scleral icterus.
Neck: supple.
CV: RRR, +S1/S2, no m/r/g.
Resp: CTAB, no rales, wheezes, or rhonchi.
Abd: Continues to +BS, soft, NT, ND
Skin: No rashes.
Neuro: Continues to CN 2-12 intact, non-focal.
Psych: Normal mood and affect.
05/31/24 13:17 Abscess Wound Culture - Preliminary
05/31/24 13:17 Abscess Gram Stain - Preliminary
05/30/24 11:16 Blood/Venous Blood Culture - Preliminary
No Growth in 48 hours- Final report to follow
CT A/P: 10 cm left upper quadrant abscess at the anterior margin of the fundus and body of the stomach. Colectomy with right lower abdomen ileostomy and 13 cm parastomal hernia which contains small bowel without obstruction or strangulation. Mild
splenomegaly
Sepsis (POA) due to recurrent intra-abdominal abscesses with fever:
-h/o diverticular stricture/colonic perforation requiring exploratory laparotomy, ileostomy
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
-IR drained 100cc of puss on 05/31/24
-cont IV Zosyn as per ID
-CRS following
Other problems:
Anemia of chronic disease: cont ferrous sulfate
Parastomal hernia
Seizure disorder: cont Keppra
GERD: cont PPI
h/o DVT
Obesity due to excess calories
Anxiety/depression: cont Lexapro
FULL/Lovenox
Anticipated Discharge: Within 24 hours
Subjective/Interval History
-
Date of Service: June 02, 2024
No new complaints.
Objective Data
-
Labs:
Laboratory Results
06/02/24
04:49
WBC 5.2
Hgb 10.4 L
Hct 30.4 L
Plt Count 238
Sodium 140
Potassium 3.8
Chloride 103
Carbon Dioxide 28
BUN 16
Creatinine 0.8
Glucose 109 H
Calcium 8.5
Vital Signs:
Vital Signs
Temp Pulse Resp BP Pulse Ox
99.1 F 68 18 114/73 96
06/02/24 07:30 06/02/24 07:30 06/02/24 07:30 06/02/24 07:30 06/02/24 07:30
I&O
06/01/24 06/02/24 06/03/24
06:59 06:59 06:59
Intake Total 490 / 490 160 / 160
Output Total 40 / 40 20 / 20
Balance 450 / 450 140 / 140
--- NOTE | 2024-06-02 12:14 | W.PN.ID1 ---
Date of Service
Date of Service: June 02, 2024
Today's Communication
Pt wants to go home, but cx not finalized yet.
Can dc on empiric moxifloxacin 400mg po qd x 2 weeks for now, then de-escalate abx until abscess resolves with repeat CT scan.
Follow-up with me in 1 to 2 weeks.
Assessment / Plan
Hx diverticular stricture with proximal perforation s/p ex lap and subtotal colectomy with end ileostomy in 2019 -> multiple recurrent abcesses.
# Recurrent left upper intra-abd abscess 2 days after drain removed.
# Fever, leukocytosis- resolved
- unclear etiology of recurrent abscesses, per Colorectal
- 05/31 s/p IR perc drain 100cc pus
Gram stain: GPC in chains, cx:in progress
-Pt wants to go home, but cx not finalized yet.
Can dc on empiric moxifloxacin 400mg po qd x 2 weeks for now, then de-escalate abx until abscess resolves with repeat CT scan.
Follow-up with me in 1 to 2 weeks.
Chief Complaint
-: Fever and Other (abscess)
Subjective / Review of Systems
Feeling better.
Vital Signs / Physical Exam
Vital Signs
Vital Signs
Temp Pulse Resp BP Pulse Ox
99.1 F 68 18 114/73 96
06/02/24 07:30 06/02/24 07:30 06/02/24 07:30 06/02/24 07:30 06/02/24 10:00
Physical Exam
Constitutional: No Acute Distress
Gastrointestinal: Soft, Non Tender, Non Distended and Other (NAYELI drain cloudy fluid)
Extremities: Negative Edema
Neurological: AO x 3
Objective Data
Lab Data
Lab Results
06/02/24 04:49
06/02/24 04:49
Estimated Creat Clear > 125 ml/min 06/02/24 04:49
Lactic Acid Cancelled 05/30/24 14:45
Total Bilirubin 1.0 mg/dl (0.2-1.3) 05/30/24 11:16
AST 31 U/L (17-59) 05/30/24 11:16
ALT 38 U/L (0-50) 05/30/24 11:16
Alkaline Phosphatase 98 U/L (38-126) 05/30/24 11:16
Most recent labs reviewed.
Micro Results:
05/30/24 11:16 Blood Culture - Preliminary
Blood/Venous No Growth in 72 hours- Final report to follow
05/31/24 13:17 Wound Culture - Preliminary
Abscess Gram Stain - Preliminary
05/30/24 CT a/p: 10 cm left upper quadrant abscess at the anterior margin of the fundus and body of the stomach
Care Review
Plan reviewed with: Physician (Dr. Villalta)
[2024-06-02 12:57] VITALS: BP 120/74
--- NOTE | 2024-06-02 13:27 | W.DCSUMMARY ---
Discharge Summary
Discharge Data
Date of Admission: 05/30/24
Date of Discharge: 06/02/24
-
Pending Results: No
Hospital Course
Primary diagnoses:
Sepsis due to recurrent intra-abdominal abscess
Secondary diagnoses:
Anemia of chronic disease
Parastomal hernia
Seizure disorder
Gastroesophageal reflux disease
h/o deep vein thrombosis
Obesity due to excess calories
Anxiety
Depression
Consultants:
Infectious disease
Colorectal surgery
Imaging:
CT A/P: 10 cm left upper quadrant abscess at the anterior margin of the fundus and body of the stomach. Colectomy with right lower abdomen ileostomy and 13 cm parastomal hernia which contains small bowel without obstruction or strangulation. Mild
splenomegaly.
Hospital course: 44-year-old male who presented with chief complaint of left-sided abdominal pain as outlined in H&P done on admission. Imaging above notable for 10 cm left upper quadrant abscess. The patient was septic on admission. He was
placed on IV Zosyn. Interventional radiology placed a drain into the abscess which relieved 100 cc of pus at the time the drain was placed. At the time of discharge the patient was transitioned to empiric moxifloxacin as culture data had not
finalized (the patient was anxious to go home). The patient will follow-up with infectious disease after discharge.
Discharge Plan
-
Patient Disposition: Home (Routine Discharge)
Discharge Diagnosis/Procedures: Intra-abdominal abscess
Condition: Good
Diet: No restrictions
Activity: As tolerated
Driving Restrictions: As prior to admission
Referrals:
Ayden Galvez MD [Active] - in two weeks
Joseph Heard DO [Family Provider] - in less than 1 week
Shruti Graf MD [Active] - in one to two weeks
Prescriptions:
New
moxifloxacin 400 mg tablet
400 mg PO DAILY 14 Days Qty: 14 0RF
Continued
levetiracetam 500 MG tablet extended release 24 hr
1,000 mg PO HS Qty: 60 0RF
multivitamin Tablet
2 tab PO DAILY
melatonin 3 mg Tablet
3 mg PO HS
escitalopram oxalate 20 mg tablet
20 mg PO DAILY
sildenafil (pulm.hypertension) 20 mg tablet
20 mg PO DAILYPRN PRN (Reason: ed)
ferrous sulfate [FeroSul] 325 MG tablet
325 mg PO BID
acetaminophen [Tylenol] 325 mg Tablet
650 mg PO Q4HPRN PRN (Reason: mild pain)
pantoprazole [Protonix] 40 mg tablet,delayed release (DR/EC)
40 mg PO DAILY
pantoprazole 40 mg Tablet,Delayed Release (Dr/Ec)
40 mg PO HSPRN PRN (Reason: gerd)
Discharge Orders:
Discharge Patient (As Directed); Ordered 06/02/24
Ordered By: Uday Villalta
Discharge Date and Time
Print Language: TURKISH
--- NOTE | 2024-06-02 14:09 | CM ---
CM reviewed chart and noted dc order
Pt left prior to CM meeting
Per chart review, no dc needs noted
Discharge Disposition- home, no needs
== END 2024-06-02 13:10 | disposition home or self-care (01) | DRG 871 ==
LOC: 4 EAST ACU 16:26
PROVIDERS: Radiology Vascular & Interventional Radiology; Registered Nurse; ADMITTING PHYSICIAN Hospitalist; ATTENDING PHYSICIAN Internal Medicine; CONSULT PHYSICIAN Internal Medicine Infectious Disease; EMERGENCY PHYSICIAN Emergency Medicine; FAMILY PHYSICIAN Family Medicine; OTHER PHYSICIAN Surgery
PROC: 0W9G30Z Drainage of Peritoneal Cavity with Drainage Device, Percutaneous Approach (ICD-10-PCS; 2024-05-31)
DX: A41.9 Sepsis, unspecified organism (principal); K65.1 Peritoneal abscess; D63.8 Anemia in other chronic diseases classified elsewhere; E11.9 Type 2 diabetes mellitus without complications; E66.09 Other obesity due to excess calories; F32.A Depression, unspecified; G40.909 Epilepsy, unspecified, not intractable, without status epilepticus; I10 Essential (primary) hypertension; F10.11 Alcohol abuse, in remission; E78.00 Pure hypercholesterolemia, unspecified; F41.9 Anxiety disorder, unspecified; K21.9 Gastro-esophageal reflux disease without esophagitis; K43.5 Parastomal hernia without obstruction or gangrene; R16.1 Splenomegaly, not elsewhere classified; Z79.899 Other long term (current) drug therapy; Z87.11 Personal history of peptic ulcer disease; Z87.19 Personal history of other diseases of the digestive system; Z90.49 Acquired absence of other specified parts of digestive tract; Z86.718 Personal history of other venous thrombosis and embolism; Z87.891 Personal history of nicotine dependence; Z80.0 Family history of malignant neoplasm of digestive organs
CPT/HCPCS: 10030; 74177; 80048; 80053; 83605; 85025; 85027; 87040; 87070; 87205; 96361; 96365; 96375; 99152; 99153; 99285; C1729; C1769; Q9967

== ENCOUNTER → 2024-08-03 06:30 | Day surgery (SDC) | payer OTHER, SELFPAY | LOC: GI 06:30 | PROVIDERS: ATTENDING PHYSICIAN Surgery | PROC: 0DBN8ZX Excision of Sigmoid Colon, Via Natural or Artificial Opening Endoscopic, Diagnostic (ICD-10-PCS; 2024-08-03) | DX: K52.89 Other specified noninfective gastroenteritis and colitis (principal) | CPT/HCPCS: 45331; 88305 ==

== ENCOUNTER → 2024-09-07 13:15 | Outpatient (REF) | payer OTHER, SELFPAY ==
[2024-09-07 13:27] VITALS: BP 131/77; BP_SYST 84
[2024-09-07 14:24] VITALS: BP 128/73; BP_SYST 70
== END ==
LOC: RADI 13:15
PROVIDERS: ATTENDING PHYSICIAN Surgery; FAMILY PHYSICIAN Family Medicine
DX: T85.698A Other mechanical complication of other specified internal prosthetic devices, implants and grafts, initial encounter (principal); Y82.8 Other medical devices associated with adverse incidents; K65.1 Peritoneal abscess
CPT/HCPCS: 49423; 75984; C1729; C1769

== ENCOUNTER → 2025-01-18 09:05 | Outpatient (REF) | payer OTHER, SELFPAY | LOC: RADI 09:05 | PROVIDERS: ATTENDING PHYSICIAN Surgery; FAMILY PHYSICIAN Family Medicine | DX: Z46.82 Encounter for fitting and adjustment of non-vascular catheter (principal); K63.2 Fistula of intestine; K65.1 Peritoneal abscess | CPT/HCPCS: 74177; 76000; Q9967 ==

== ENCOUNTER 2025-03-11 06:07 | Inpatient (IN) | payer OTHER, SELFPAY ==
[2025-03-04 10:09] LABS: Hematocrit 38.6 % (39.0-52.0); Hemoglobin 13.7 g/dL (13.0-18.0); Mean Corp Hgb Conc. 35.5 g/dL (33.0-37.0); Mean Corpuscular Hgb 29.5 pg (27.0-31.0); Mean Corpuscular Volume 83.2 fL (80.0-94.0); Mean Platelet Volume 9.9 fL (7.4-10.4); Platelet Count 165 10^3/uL (130-400); Red Blood Cell Count 4.64 10^6/uL (4.70-6.10); White Blood Cell Count 7.7 10^3/uL (4.8-10.8)
[2025-03-04 10:18] LABS: INR 0.99; PT 13.4 Sec (11.4-14.6)
[2025-03-04 10:19] LABS: APTT 30.6 Sec (23.4-35.0)
[2025-03-04 14:07] VITALS: BMI 32.3
[2025-03-04 14:33] LABS: Glycohemoglobin (HgbA1c) 5.3 % (4.0-5.6)
--- NOTE | 2025-03-09 08:34 | PTCARENOTE ---
Abnormal ECG done 03/04/[address] Kapadia 03/08, patient 'may need further evaluation'.
Sparkle at Dr Galvez's office notified. PCP has cleared patient.
[2025-03-11] VITALS (18 sets, daily range): BP systolic 105–128; BP diastolic 65–84; BMI 32.3
[2025-03-11] MEDS: HEPARIN 5000 UNITS SC (06:43)
[2025-03-11] MEDS: TYLENOL 1000 MG PO (06:43)
[2025-03-11] MEDS: NORMOSOL-R/PLASMALYTE-A 1000 IV (06:43)
--- NOTE | 2025-03-11 07:02 | HP.FOC2 ---
Focused History & Physical
Chief Complaint
HPI:
Chief Complaint: Presence of end ileostomy, previous history of gastrocutaneous fistula
HPI / Indication for Planned Procedure: Patient is a 44-year-old male well-known to the [facility] colorectal service having undergone ex lap, subtotal colectomy and end ileostomy in 2019 for sigmoid diverticular stricture with resultant
perforation and feculent peritonitis. He had 2 additional takeback to the OR for abdominal washout. Subsequently developed recurrent abscesses in the left upper quadrant requiring IR drain placement. On 1 of these follow-up studies there appeared
to be communication with the stomach. The drain subsequently stopped producing and presumed fistulous communication healed as he has not had any recurrent infections since. Today he presents for reversal of his ileostomy. General surgery
assistance requested for abdominal wall closure and assessment of previous suspected gastrocutaneous fistula site.
Relevant Past Medical History: Other (History of seizures, previous history of alcohol abuse)
Relevant Social History: Negative
Relevant Family History: Negative
Relevant Past Surgical History: Positive for (Ex lap, subtotal colectomy, end ileostomy. Abdominal washout x 2. IR drain placement left upper quadrant x 3. Upper and lower endoscopies.)
Review of Systems
Review of Pertinent Systems: All Systems Negative
Medication
See Medication form for detailed medications: Yes
Medication List (including Herbals & OTC):
levetiracetam 500 mg tablet,extended release 24 hr 1,000 mg (2 x 500 mg) PO HS ##60 04/28/19
escitalopram oxalate 20 mg tablet 20 mg PO DAILY Depression 05/14/23
melatonin 3 mg tablet 3 mg PO HS PRN Sleep 05/14/23
multivitamin 2 tab PO DAILY Supplement 05/14/23
sildenafil (pulm.hypertension) 20 mg tablet 20 mg PO DAILYPRN PRN ed 05/14/23
ferrous sulfate 325 mg (65 mg iron) tablet (FeroSul) 325 mg PO BID Supplement 01/14/24
acetaminophen 325 mg tablet (Tylenol) 650 mg PO Q4HPRN PRN mild pain 02/24/24
pantoprazole 40 mg tablet,delayed release (Protonix) 40 mg PO DAILY Gastrointestinal Issue 02/24/24
cefuroxime axetil 500 mg tablet 500 mg PO Q12H 03/04/25
lorazepam 0.5 mg tablet 0.5 mg PO BID PRN anxiety 03/04/25
sodium phosphates 19 gram-7 gram/118 mL enema (Fleet Enema) 118 ml FL DIRECTED 03/04/25
trazodone 50 mg tablet 50 mg PO HS 03/04/25
metronidazole 500 mg tablet 500 mg PO PRE PROCEDURE 03/08/25
neomycin 500 mg tablet 1 g PO PRE PROCEDURE 03/08/25
Medications Reviewed: Yes
Allergies and Reactions
Patient has Allergies: No
Noted Allergies and Reactions:
Allergy/AdvReac Type Severity Reaction Status Date / Time
No Known Allergies Allergy Verified 03/11/25 06:23
Pertinent Physical Exam
All Other Systems: Negative
Head/Neck: Normal
Lungs: Normal
Heart: Normal
Abdomen: Other (Right-sided ileostomy)
Extremities: Normal
Neurological: Normal
Diagnosis / Assessment
44-year-old male presenting for reversal of his ileostomy to restore intestinal continuity with Dr. Galvez as well as general surgical assistance with abdominal closure and exploration with regards to possible previous suspected gastrocutaneous
fistula.
Plan / Procedure
Exploratory laparotomy, lysis of adhesions, possible takedown fistula. Abdominal wall closure/closure of old ileostomy site parastomal hernia; Possible synthetic resorbable mesh.
Anesthesia/Sedation to be done by Anesthesia Provider: Yes
--- NOTE | 2025-03-11 12:26 | W.IMMPOSTOP ---
Surgical Immed Post Op Note
-
Primary Surgeon: Alejandro Galvez MD
Assistants: Alberto Lerner MD, RONY Lara and SANCHO Mcclelland
Pre-op Diagnosis: Ileostomy, enterocutaneous fistula, incisional and parastomal hernias
Post-op Diagnosis: Same
Procedure Performed: Laparotomy with extensive lysis of adhesions and repair of hernias (Dr. Lerner)
Resection and closure of ileostomy (ileorectal anastomosis) and flexible sigmoidoscopy (Dr. Galvez)
Anesthesia Type: GET
Specimen / Cultures: Portion of rectum (suture is proximal)
Estimated Blood Loss: 40cc
Complications: None
Operative Findings: Extensive adhesions
No evidence of an enterocutaneous fistula (drain removed)
25mm EEA (ileorectal)
Normal leak test
NGT in the fundus of the stomach
Parastomal and incisional hernia repairs
Anton updated by telephone.
[2025-03-11] MEDS: DILAUDID 0.5 MG IV ×2 (13:08→13:40)
[2025-03-11] MEDS: NSS 1000 IV ×2 (13:48→22:28)
[2025-03-11] MEDS: DILAUDID PCA 30 IV (13:56)
[2025-03-11] MEDS: DILAUDID 0.25 MG IV (14:27)
--- NOTE | 2025-03-11 15:40 | PTCARENOTE ---
Pt received from the PACU via bed. Transport was w/o incident. Pt is AAOx3, NGT to left nare intact. Pt's abd with Peco drain and dressing intact. Old ileostomy site with Betadine soaked dressing intact. No further drainage noted. Pt denies nausea
and using CABIN CLEANER pump for pain management. Chandler draining yellow, clear urine. VSS, Pt is afebrile. Pt instructed on plan of care. Pt verbalized understanding of instructions. Call hughes is within reach.
[2025-03-11] MEDS: KEPPRA XR (EXTENDED RELEASE) 1000 MG PO (22:28)
[2025-03-12 03:18] VITALS: BP 113/72
[2025-03-12] MEDS: NSS 1000 IV ×4 (05:01→21:57)
[2025-03-12 06:00] VITALS: BMI 31.4
[2025-03-12 06:12] LABS: % Basophils 0.2 % (0-2); % Immature Granulocytes 0.3 % (0-0.5); % Lymphocytes 4.4 % (20.5-51.1); % Monocytes 8.9 % (1.7-9.3); % Neutrophils 86.2 % (42.2-75.2); Absolute Lymphocytes 0.6 10^3/uL (1.2-3.4); Absolute Monocytes 1.1 10^3/uL (0.1-0.6); Absolute Neutrophils 10.8 10^3/uL (1.4-6.5); Hematocrit 36.2 % (39.0-52.0); Hemoglobin 12.3 g/dL (13.0-18.0); Mean Corpuscular Hgb 29.3 pg (27.0-31.0); Mean Corpuscular Volume 86.2 fL (80.0-94.0); Mean Platelet Volume 9.6 fL (7.4-10.4); Nucleated Red Blood Cells % 0 % (-); Platelet Count 158 10^3/uL (130-400); Red Cell Dist. Width 13.3 % (11.5-14.5); White Blood Cell Count 12.5 10^3/uL (4.8-10.8)
[2025-03-12 06:32] LABS: Blood Urea Nitrogen 13 mg/dl (9-20); Calcium 7.8 mg/dl (8.4-10.2); Carbon Dioxide 28 mmol/L (22-30); Chloride 105 mmol/L (98-107); Estimated Creatinine Clearance > 125 ml/min; Glucose 120 mg/dl (70-99); Potassium 4.7 mmol/L (3.5-5.1); Sodium 140 mmol/L (135-145); eGFR > 60.00
[2025-03-12 07:00] VITALS: BP 102/65
--- NOTE | 2025-03-12 08:59 | W.PN.GS2 ---
Today's Communication / Plan
-
`
Assessment / Plan
-
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
AFVSS
Overall doing well with expected initial postoperative recovery
Acute blood loss anemia -expected surgical blood loss; hemoglobin 12.3
Plan: Stable creatinine - start Toradol 10 mg IV Q6H, renewed CLOTH TESTER
OOBTC, ambulate as able, encourage IS use
IV fluid renewed
Maintain NG tube awaiting signs of postoperative GI recovery
Okay to clamp for ambulation and p.o. meds
Ertapenem postop x 72 hours (empiric coverage given previous history of GC fistula site which was evaluated and removal of IR catheter for prior left upper quadrant infection)
Lovenox for VTE prophylaxis
Pantoprazole -GERD history/GI prophylaxis with NG tube
Subjective Data
-
Date of Service: March 12, 2025
Patient seen and examined.
Intermittent abdominal pains at times that are more severe
No nausea
No flatus/BM
Utilizing CLOTH TESTER but still with some breakthrough pain
Objective Data
-
Intake and Output
03/11/25 03/12/25 03/13/25
06:59 06:59 06:59
Intake Total 2490 / 2490
Output Total 1950 / 1950
Balance 540 / 540
Intake:
IV fluids (Total) 2400 / 2400
normosol 300 / 300
Amount instilled into GI Tube ( 90 / 90
Total)
Gastrostomy 90 / 90
Output:
Gastrointestinal tube output ( 400 / 400
Total)
Gastrostomy 400 / 400
Urine, [place] 1550 / 1550
Vital Signs
Temp Pulse Resp BP Pulse Ox
98 F 90 16 102/65 99
03/12/25 07:00 03/12/25 07:00 03/12/25 07:15 03/12/25 07:00 03/12/25 07:15
Lab Results
03/12/25 05:58
03/12/25 05:58
Calcium 7.8 mg/dl (8.4-10.2) L 03/12/25 05:58
Physical Exam
-
NAD AAO x 3
ABD: Soft, nondistended, generalized tenderness but no guarding.
Midline incision with JUAN J dressing and old ostomy site with gauze Tegaderm dressing
NG tube in place
Coto in place with clear yellow urine
Patient has a coto catheter: Yes
[2025-03-12] MEDS: TORADOL 10 MG IV ×3 (09:41→21:57)
[2025-03-12] MEDS: PROTONIX IV 40 MG IV (09:42)
[2025-03-12] MEDS: INVANZ 60 MG IV (09:43)
[2025-03-12] MEDS: NSS (PRESERVATIVE FREE) 10 ML IV (09:43)
[2025-03-12 11:00] VITALS: BP 103/58
--- NOTE | 2025-03-12 12:46 | CM ---
CM following re: discharge planning.
Reviewed pt's chart, met with pt.
Pt is a 44 year old male, admitted with primary dx of POD #1 status post ex lap, lysis of adhesions, exploration of previous gastrocutaneous fistula.
Pt reports he lives with in a condo, 13 steps to enter. 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 Pt stated he feels very weak.
PT and OT will evaluate the pt to determine a level of acre at discharge.
PCP: Joseph Heard
Pharmacy: [facility]
D/C plan: uncertain at this time and will de[pend on pt's progress.
CM will follow with discharge plan updates as hospitalization progresses
[2025-03-12 15:00] VITALS: BP 103/62
[2025-03-12] MEDS: LOVENOX 40 MG SC (17:10)
--- NOTE | 2025-03-12 21:00 | PTCARENOTE ---
Pt IV that was infusing for the VEHICLE WASHER pump was occluded @ this time and leaking from tubing. VEHICLE WASHER stopped to further assess IV site. IV removed, pt reported that he would end VEHICLE WASHER pump at this time and not renew. Pt educated on pain medications
available PRN and scheduled.
[2025-03-12] MEDS: KEPPRA XR (EXTENDED RELEASE) 1000 MG PO (22:05)
[2025-03-12 23:09] VITALS: BP 124/78
[2025-03-13] MEDS: DILAUDID 0.5 MG IV ×4 (01:33→11:32)
[2025-03-13] MEDS: TORADOL IV (04:33)
--- NOTE | 2025-03-13 04:37 | PTCARENOTE ---
Pt started on Toradol yesterday, BM x2 this shift bloody, this scheduled dose held@ this time, labs completed this AM and pt agreeable to holding and taking PRN medications mabel ELDER assess.
[2025-03-13] MEDS: NSS 1000 IV ×2 (05:33→14:58)
[2025-03-13 06:00] VITALS: BMI 31.5
[2025-03-13 06:06] LABS: Hematocrit 32.7 % (39.0-52.0); Mean Corp Hgb Conc. 33.6 g/dL (33.0-37.0); Mean Corpuscular Hgb 29.7 pg (27.0-31.0); Mean Corpuscular Volume 88.4 fL (80.0-94.0); Mean Platelet Volume 10.2 fL (7.4-10.4); Platelet Count 160 10^3/uL (130-400); Red Cell Dist. Width 13.3 % (11.5-14.5)
[2025-03-13 06:36] LABS: Blood Urea Nitrogen 15 mg/dl (9-20); Calcium 8.1 mg/dl (8.4-10.2); Carbon Dioxide 28 mmol/L (22-30); Chloride 104 mmol/L (98-107); Estimated Creatinine Clearance > 125 ml/min; Glucose 100 mg/dl (70-99); Potassium 3.8 mmol/L (3.5-5.1); Sodium 141 mmol/L (135-145); eGFR > 60.00
[2025-03-13 07:02] VITALS: BP 120/68
[2025-03-13] MEDS: INVANZ 60 MG IV (08:19)
[2025-03-13] MEDS: NSS (PRESERVATIVE FREE) 10 ML IV (08:19)
[2025-03-13] MEDS: PROTONIX IV 40 MG IV (08:20)
--- NOTE | 2025-03-13 08:21 | W.PN.GS2 ---
Addendum entered and electronically signed by Alberto Lerner MD 03/13/25 17:09:
This is a delayed entry. Patient seen and examined with nurse practitioner this a.m. Agree with documented progress note.
Overall patient is doing well. Reports discomfort from NG tube.
Pain management satisfactory
He has passed a few bloody mucoid stools early this a.m.
Difficulty swallowing Keppra tablets yesterday evening
AFVSS
NAD AAO x 3
ABD: Soft, appropriate incisional tenderness generalized.
JUAN J midline dressing in place with some dried bloody staining
Right sided old ileostomy site dressing changed
A/P: POD #2 status post ex lap, ANTONIO, exploration of previous GC fistula site and reversal of ileostomy with ileorectal anastomosis
Overall doing well postoperatively
Bloody mucoid bowel movements are expected as patient had significant diversion proctitis noted intraoperatively during anastomosis endoscopic evaluation. This is more of a oozing from the raw surface then signs of anastomotic bleeding. Will
continue to monitor. Given stability of vital signs and hemoglobin okay to continue with Lovenox and Toradol
INTERNET DEVELOPER discontinued
Coto out
Maintain NG tube today
Original Note:
Today's Communication / Plan
-
NGT/IVF
Pain management
Assessment / Plan
-
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
AFVSS
Overall doing well with expected initial postoperative recovery
Acute blood loss anemia -expected surgical blood loss, hemodilution
INTERNET DEVELOPER taken down overnight
NGT with bilious outputs
Plan: Continue toradol, add dilaudid prn. Add scheduled Ofirmev.
OOBTC, ambulate as able, encourage IS use
IV fluid renewed, decrease rate to 110ml
Maintain NG tube awaiting postoperative GI recovery
Okay to clamp for ambulation and p.o. meds
Change PO Keppra to IV
Ertapenem postop x 72 hours (empiric coverage given previous history of GC fistula site which was evaluated and removal of IR catheter for prior left upper quadrant infection)
C/W PECO dressing to midline incision
Lovenox for VTE prophylaxis
Pantoprazole -GERD history/GI prophylaxis with NG tube
Subjective Data
-
Date of Service: March 13, 2025
Patient seen and examined at bedside with Dr. Lerner. Denies n/v. Passed some bloody material rectally overnight. Still with tenderness to the abd with movement/touch. Difficulty swallowing PO meds around NGT.
Objective Data
-
Intake and Output
03/12/25 03/13/25 03/14/25
06:59 06:59 06:59
Intake Total 2490 / 2490 1060 / 1060 590 / 590
Output Total 1950 / 1950 1575 / 1575 1050 / 1050
Balance 540 / 540 -515 / -515 -460 / -460
Intake:
Oral fluids 500 / 500
IV fluids (Total) 2400 / 2400 1000 / 1000
normosol 300 / 300
Amount instilled into GI Tube ( 90 / 90 60 / 60 90 / 90
Total)
Gastrostomy 90 / 90 60 / 60 90 / 90
Output:
Gastrointestinal tube output ( 400 / 400 350 / 350 1050 / 1050
Total)
Gastrostomy 400 / 400 350 / 350 1050 / 1050
Urine, [place] 1550 / 1550 1225 / 1225
Other:
Number of unmeasured liquid
stools
Rectum 1
Vital Signs
Temp Pulse Resp BP Pulse Ox
98.6 F 82 16 120/68 97
03/13/25 07:02 03/13/25 07:02 03/13/25 07:02 03/13/25 07:02 03/13/25 07:02
Lab Results
03/13/25 04:25
03/13/25 04:25
Calcium 8.1 mg/dl (8.4-10.2) L 03/13/25 04:25
Physical Exam
-
NAD
ABD softly distended, generalized TTP, WOUND CARE COORDINATOR
Midline incision with intact PECO dressing. Changed dressing over prior ostomy site as it was saturated: incision with intact chico/yevtte, no erythema.
Patient has a coto catheter: No
Patient has a central line: No
[2025-03-13] MEDS: OFIRMEV 100 IV ×3 (08:46→21:16)
[2025-03-13] MEDS: TORADOL 10 MG IV ×3 (10:53→21:17)
[2025-03-13 15:50] VITALS: BP 119/65
[2025-03-13] MEDS: LOVENOX 40 MG SC (16:51)
[2025-03-13] MEDS: KEPPRA 500 MG IV (21:16)
[2025-03-13 23:00] VITALS: BP 115/71
[2025-03-14] MEDS: NSS 1000 IV ×3 (02:14→17:34)
[2025-03-14] MEDS: OFIRMEV 100 IV (03:00)
[2025-03-14] MEDS: TORADOL 10 MG IV ×4 (03:04→21:26)
[2025-03-14 06:00] VITALS: BMI 31.4
[2025-03-14 07:35] VITALS: BP 140/74
[2025-03-14 08:02] LABS: Hematocrit 28.5 % (39.0-52.0); Hemoglobin 9.3 g/dL (13.0-18.0); Mean Corp Hgb Conc. 32.6 g/dL (33.0-37.0); Mean Corpuscular Hgb 29.4 pg (27.0-31.0); Mean Corpuscular Volume 90.2 fL (80.0-94.0); Mean Platelet Volume 9.8 fL (7.4-10.4); Platelet Count 140 10^3/uL (130-400); Red Blood Cell Count 3.16 10^6/uL (4.70-6.10); Red Cell Dist. Width 13.1 % (11.5-14.5); White Blood Cell Count 7.4 10^3/uL (4.8-10.8)
[2025-03-14] MEDS: INVANZ 60 MG IV (08:31)
[2025-03-14] MEDS: PROTONIX IV 40 MG IV (08:32)
[2025-03-14] MEDS: NSS (PRESERVATIVE FREE) 10 ML IV (08:32)
[2025-03-14] MEDS: KEPPRA 500 MG IV ×2 (08:32→21:27)
--- NOTE | 2025-03-14 08:34 | PTCARENOTE ---
JUAN J drain intermittently blinking orange, seal reestablished PRN. Dr Soares notified. Care remains ongoing.
[2025-03-14 08:39] LABS: Blood Urea Nitrogen 17 mg/dl (9-20); Calcium 8.2 mg/dl (8.4-10.2); Carbon Dioxide 29 mmol/L (22-30); Chloride 109 mmol/L (98-107); Estimated Creatinine Clearance > 125 ml/min; Glucose 88 mg/dl (70-99); Potassium 3.7 mmol/L (3.5-5.1); Sodium 145 mmol/L (135-145); eGFR > 60.00
--- NOTE | 2025-03-14 09:36 | W.PN.CRS1 ---
Today's Communication / Plan
-
As below
Assessment/Plan
-
44-year-old male with PMH of seizure disorder and diverticular stricture requiring subtotal colectomy with end ileostomy and multiple abdominal abscesses requiring IR drain who presents for elective surgery
POD 1 ex lap, lysis of adhesions, reversal of end ileostomy with ileorectal anastomosis, repair of abdominal hernias
AFVSS, NGT with 1.6 L output (estimated about 600-800 mL of ice chip intake)
WBC 7.4, Hb 9.3 from 11.0
�Continue n.p.o. with IVF and NGT
� Continue pain control with Toradol and Dilaudid as needed
� Continue Lovenox; recommend repeat CBC at 1 PM; if continuing to downtrend, would hold DVT PPx
� Encourage IS/OOB
� Appreciate general surgery
Subjective Data
Subjective Data
Date of Service: March 14, 2025
No overnight events.
Pain controlled.
Denies nausea/vomiting.
+flatus +BMs (liquidy, couple episodes of blood, last episode without blood) +voiding
Objective Data
-
Vital Signs
Temp Pulse Resp BP Pulse Ox
98.3 F 69 16 140/74 97
03/14/25 07:35 03/14/25 07:35 03/14/25 07:35 03/14/25 07:35 03/14/25 07:35
Intake & Output
03/13/25 03/14/25 03/15/25
06:59 06:59 06:59
Intake Total 1060 / 1060 2560 / 2560
Output Total 1575 / 1575 2685 / 2685
Balance -515 / -515 -125 / -125
Intake:
Oral fluids 620 / 620
IV fluids (Total) 1000 / 1000 1210 / 1210
IV piggybacks 200 / 200
Amount instilled into GI Tube ( 60 / 60 530 / 530
Total)
Gastrostomy 60 / 60 530 / 530
Output:
Gastrointestinal tube output ( 350 / 350 2384 / 2384
Total)
Gastrostomy 350 / 350 2384 / 2384
Urine, [place] 1225 / 1225
Urine, Voided 300 / 300
Other:
Number of approximated LARGE 3
amounts of urine
Number of unmeasured liquid
stools
Rectum 1
Lab Results
03/14/25 07:39
03/14/25 07:39
Physical Exam
-
General: No Acute Distress and AOx3
HEENT: Grossly Normal
Abdomen: Soft, Non Distended, Tender (Appropriately tender near midline), No Guarding and No Rebound
Skin: Warm and Dry
Wound: Dressing in Place (Josep dressing along midline in place with strikethrough and dressing over ostomy site, dressings not changed)
--- NOTE | 2025-03-14 10:25 | W.PN.GS2 ---
Addendum entered and electronically signed by Mark Botello MD 03/14/25 12:08:
I saw and examined the patient independently.
The resident's documentation was reviewed and I agree with the note, assessment and plan except where noted below.
Comment: Still with high NG tube output we will maintain for now.
Original Note:
Today's Communication / Plan
-
PT/OT
OOB
Assessment / Plan
-
Impression
Patient is a 44-year-old male with past medical history of seizure disorder and diverticular stricture requiring subtotal colectomy with end ileostomy, history of having [address] for abdominal abscesses, s/p exploratory laparotomy, lysis of
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
Postop day 3
NGT output-1335 mL over last 24 hours
Overall doing well
States he feels hungry
On lab review
No leukocytosis
Expected drop in hemoglobin-monitor CBC
Serum electrolytes within normal limit
Mild hypocalcemia
Plan:
Optimize pain management
PT/OT
Encouraged OOB
DVT prophylaxis-Lovenox
Antibiotic-continue ertapenem
GI prophylaxis PPI
Subjective Data
-
Date of Service: March 14, 2025
Patient seen and examined at bedside
Denies any nausea or vomiting
Passing gas, had multiple loose stools
Denies any significant abdominal pain
Objective Data
-
Intake and Output
03/13/25 03/14/25 03/15/25
06:59 06:59 06:59
Intake Total 1060 / 1060 2560 / 2560 30 30
Output Total 1575 / 1575 2685 / 2685
Balance -515 / -515 -125 / -125
Intake:
Oral fluids 620 / 620
IV fluids (Total) 1000 / 1000 1210 / 1210
IV piggybacks 200 / 200
Amount instilled into GI Tube ( 60 / 60 530 / 530 30 / 30
Total)
Gastrostomy 60 / 60 530 / 530 30 / 30
Output:
Gastrointestinal tube output ( 350 / 350 2385 / 2385
Total)
Gastrostomy 350 / 350 2385 / 2385
Urine, [place] 1225 / 1225
Urine, Voided 300 / 300
Other:
Number of approximated LARGE 3
amounts of urine
Number of unmeasured liquid
stools
Rectum 1
Vital Signs
Temp Pulse Resp BP Pulse Ox
97.7 F 70 18 126/67 95
03/14/25 09:45 03/14/25 09:45 03/14/25 09:45 03/14/25 09:45 03/14/25 09:45
Lab Results
03/14/25 07:39
Calcium 8.2 mg/dl (8.4-10.2) L 03/14/25 07:39
Physical Exam
-
No apparent distress, NG tube in place, breathing on room air
Abdomen soft, nondistended, tender at the incision site, no guarding or rebound
Dressing in place over the wounds, midline wound dressing with some visible blood, dressings not changed
Chest bilaterally clear to auscultation
Patient has a coto catheter: No
Patient has a central line: No
[2025-03-14 10:27] VITALS: BMI 31.4
--- NOTE | 2025-03-14 14:52 | CM ---
Patient seen at bedside on . Patient stated hat he plans for discharge home with either [facility] or [facility] but he would like to talk to [facility] Patient current with NG tube at this time. Patient stated that he was concerned about 13 steps
to enter home. CM will continue to follow for discharge planning needs.
Plan; referral to [facility] to request assessment.
[2025-03-14 15:20] VITALS: BP 135/77
[2025-03-14 15:51] LABS: Hematocrit 31.8 % (39.0-52.0); Hemoglobin 10.7 g/dL (13.0-18.0); Mean Corp Hgb Conc. 33.6 g/dL (33.0-37.0); Mean Corpuscular Volume 89.1 fL (80.0-94.0); Mean Platelet Volume 9.6 fL (7.4-10.4); Platelet Count 175 10^3/uL (130-400); Red Blood Cell Count 3.57 10^6/uL (4.70-6.10); Red Cell Dist. Width 13.1 % (11.5-14.5); White Blood Cell Count 7.7 10^3/uL (4.8-10.8)
[2025-03-14] MEDS: LOVENOX 40 MG SC (17:33)
[2025-03-14 23:09] VITALS: BP 141/79
[2025-03-15] MEDS: NSS 1000 IV ×3 (02:16→20:29)
[2025-03-15] MEDS: TORADOL 10 MG IV (03:54)
[2025-03-15 06:00] VITALS: BMI 31.5
[2025-03-15 07:30] VITALS: BP 134/80
--- NOTE | 2025-03-15 07:53 | W.PN.GS2 ---
Addendum entered and electronically signed by Alberto Lerner MD 03/15/25 08:36:
Patient seen and examined independently of certified surgical technician.
Postoperative pain controlled with Ofirmev and Toradol.
No nausea
Loose bowel movements as expected
AFVSS
NAD AAO x 3
ABD: Soft, nondistended, minimal incisional tenderness.
JUAN J dressing in place
A/P: POD #4
Doing well postop with improving GI function. NG clamping trial and remove in afternoon if residuals minimal and diminishing
IV Tylenol reordered
will return to change JUAN J and old ostomy site dressing this afternoon
Original Note:
Today's Communication / Plan
-
NG tube clamping
If tolerates clamping, start clears
Continue PT/OT
Assessment / Plan
-
Impression
Patient is a 44-year-old male with past medical history of seizure disorder and diverticular stricture requiring subtotal colectomy with end ileostomy, history of having [address] for abdominal abscesses, s/p exploratory laparotomy, lysis of
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
Postop day 4
NGT output 710 mL over last 24 hours
Overall doing well
States he feels hungry, would like to eat something
On lab review
No leukocytosis
Hemoglobin stable at 10.7
BMP grossly normal
Serum electrolytes within normal limit
Mild hypocalcemia
Plan:
Optimize pain management
Continue PT/OT
NG tube clamping
If tolerates clamping trial, can start clears today
DVT prophylaxis-Lovenox
Completed postop 72 hours of ertapenem-discontinue
GI prophylaxis PPI
CODE STATUS full code
Subjective Data
-
Date of Service: March 15, 2025
Patient seen and examined on bedside
Denies any abdominal pain, nausea, vomiting
OOB and ambulating
Passing gas and 5-6 loose stools daily
Objective Data
-
Intake and Output
03/14/25 03/15/25 03/16/25
06:59 06:59 06:59
Intake Total 2560 / 2560 1530 / 1530
Output Total 2685 / 2685 710 / 710
Balance -125 / -125 820 / 820
Intake:
Oral fluids 620 / 620
IV fluids (Total) 1210 / 1210 1350 / 1350
IV piggybacks 200 / 200
Amount instilled into GI Tube ( 530 / 530 180 / 180
Total)
Gastrostomy 530 / 530 90 / 90
[place] Sump 90 / 90
Output:
Gastrointestinal tube output ( 2385 / 2385 710 / 710
Total)
Gastrostomy 2385 / 2385 510 / 510
[place] Sump 200 / 200
Urine, Voided 300 / 300
Other:
Number of approximated MODERATE 3
amounts of urine
Number of approximated LARGE 3
amounts of urine
Vital Signs
Temp Pulse Resp BP Pulse Ox
98.9 F 66 16 141/79 100
03/14/25 23:09 03/14/25 23:09 03/14/25 23:09 03/14/25 23:09 03/15/25 00:33
Lab Results
03/14/25 15:28
03/14/25 07:39
Calcium 8.2 mg/dl (8.4-10.2) L 03/14/25 07:39
Physical Exam
-
No apparent distress, breathing on room air, lying comfortably in bed
Abdomen soft, nondistended, mildly tender at incision site, no guarding or rebound, NG output 710 mL over last 24 hours
chest bilaterally clear to auscultation
Judgment and insight good
Patient has a coto catheter: No
Patient has a central line: No
[2025-03-15] MEDS: KEPPRA 500 MG IV ×2 (08:01→20:30)
[2025-03-15] MEDS: PROTONIX IV 40 MG IV (08:01)
[2025-03-15] MEDS: NSS (PRESERVATIVE FREE) 10 ML IV (08:02)
--- NOTE | 2025-03-15 08:40 | W.PN.CRS1 ---
Today's Communication / Plan
-
ngt clamping trial
Assessment/Plan
-
44-year-old male with PMH of seizure disorder and diverticular stricture requiring subtotal colectomy with end ileostomy and multiple abdominal abscesses requiring IR drain who presents for elective surgery
POD 5 ex lap, lysis of adhesions, reversal of end ileostomy with ileorectal anastomosis, repair of abdominal hernias
AFVSS, NGT with 710ml
WBC 7.7, Hb 10.7 (9.3)
�Continue n.p.o. with IVF
- NGT clamping trial today for 6 hours. If residuals less than 250ml, okay to remove. Remain NPO.
- IV Ofirmev while no po or rectal access. Renewed toradol.
� Continue Lovenox; TEDS and SCDS.
� Encourage IS/OOB
� Appreciate general surgery
- Home meds held for now
- JUAN J dressing to be changed by general surgery later today
Subjective Data
Subjective Data
Date of Service: March 15, 2025
Patient is feeling well. He has minimal complaints. He denies nausea or vomiting. He is hungry and would like the NGT removed. Having flatus and bowel movements.
Objective Data
-
Vital Signs
Temp Pulse Resp BP Pulse Ox
99.0 F 64 18 134/80 100
03/15/25 07:30 03/15/25 07:30 03/15/25 07:30 03/15/25 07:30 03/15/25 07:30
Intake & Output
03/14/25 03/15/25 03/16/25
06:59 06:59 06:59
Intake Total 2560 / 2560 1530 / 1530
Output Total 2685 / 2685 710 / 710
Balance -125 / -125 820 / 820
Intake:
Oral fluids 620 / 620
IV fluids (Total) 1210 / 1210 1350 / 1350
IV piggybacks 200 / 200
Amount instilled into GI Tube ( 530 / 530 180 / 180
Total)
Gastrostomy 530 / 530 90 / 90
[place] Sump 90 / 90
Output:
Gastrointestinal tube output ( 2384 / 2384 710 / 710
Total)
Gastrostomy 2384 / 2384 510 / 510
[place] Sump 200 / 200
Urine, Voided 300 / 300
Other:
Number of approximated MODERATE 3
amounts of urine
Number of approximated LARGE 3
amounts of urine
Lab Results
03/14/25 15:28
03/14/25 07:39
Physical Exam
-
General: No Acute Distress and AOx3
Abdomen: Soft, Non Distended and Tender (mild near midline)
Skin: Warm and Dry
Wound: Dressing in Place (juan j dressing in place)
[2025-03-15] MEDS: OFIRMEV 100 IV ×3 (08:46→20:31)
[2025-03-15] MEDS: TORADOL 15 MG IV ×3 (08:48→20:31)
--- NOTE | 2025-03-15 10:24 | CM ---
Reviewed the chart notes and spoke with the patient at the bedside. Trial NGT clamp in process. CM continues to be available to patient/family and is monitoring medical plan for needs at discharge.
Plan: Discharge plans will depend on the patient's progress. Patient is open to [facility] if [facility] recommended.
--- NOTE | 2025-03-15 10:58 | VNURNOTE ---
Home Health Liaison met with patient at bedside to discuss [facility] nurse/therapy, visits, schedule and homebound status. Patient is agreeable and understands that visits at home will be 2-3 x per week to assess and teach medical management.
Patient is aware that [facility] will contact them for start of care in 1-2 days after discharge from .
[facility] referral completed in [facility].
--- NOTE | 2025-03-15 13:18 | PTCARENOTE ---
NG tube d/c'd after a clamp trial and negative residual.
[2025-03-15 15:50] VITALS: BP 139/79
--- NOTE | 2025-03-15 16:21 | W.PN.SURGUPD ---
Surgical Update
Surgical Update
JUAN J dressing removed to check incision
incision with yvette, no erythema, no open wounds, no drainage.
New JUAN J dressing placed which should remain in place for next 5-7 days. holding suction/seal after placement.
RLQ old ostomy site with chico, no erythema, no drainage
[2025-03-15] MEDS: LOVENOX 40 MG SC (17:27)
[2025-03-15 23:44] VITALS: BP 133/75
[2025-03-16] MEDS: TORADOL 15 MG IV ×4 (02:05→21:28)
[2025-03-16] MEDS: OFIRMEV 100 IV (02:08)
--- NOTE | 2025-03-16 04:20 | DOWNTIME ---
Addendum entered by Alex Phillips RN 03/16/25 14:07:
Correction to downtime 03/16/2025 from 0100 to 03/16/25 at 0415.
Original Note:
There was a [employer] Educational Administration Teacher Downtime on 03/15/2025 from 0100 to 03/16/2025 at 0415. Downtime documentation of patient's care, including medication administrations, has been reconciled in the electronic record per guidelines. Refer to the
patient's paper chart under the miscellaneous tab to see printed paper medication records and downtime forms.
[2025-03-16] MEDS: NSS 1000 IV (05:46)
[2025-03-16 06:00] VITALS: BMI 32.0
--- NOTE | 2025-03-16 07:21 | W.PN.GS2 ---
Today's Communication / Plan
-
`
Assessment / Plan
-
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
AFVSS
doing well post op
pain appears more incisional and or gas cramps
Plan: continue toradol/tylenol PRN
hold on clear liquid diet for now
CBC and BMP this AM
resume additional home PO meds
lovenox/scds for VTEp
Subjective Data
-
Date of Service: March 16, 2025
pt seen and examined
reports increase in lower abdominal pain and LLQ pain overnight (03/08)
no nausea
bertram clears
+loose BMs
Objective Data
-
Intake and Output
03/15/25 03/16/25 03/17/25
06:59 06:59 06:59
Intake Total 1530 / 1530 200 / 200
Output Total 710 / 710
Balance 820 / 820 200 / 200
Intake:
IV fluids (Total) 1350 / 1350
IV piggybacks 200 / 200
Amount instilled into GI Tube ( 180 / 180
Total)
Gastrostomy 90 / 90
[place] Sump 90 / 90
Output:
Gastrointestinal tube output ( 710 / 710
Total)
Gastrostomy 510 / 510
[place] Sump 200 / 200
Other:
Number of approximated MODERATE 3
amounts of urine
Vital Signs
Temp Pulse Resp BP Pulse Ox
98.6 F 65 18 133/75 99
03/15/25 23:44 03/15/25 23:44 03/15/25 23:44 03/15/25 23:44 03/15/25 23:44
Lab Results
03/14/25 15:28
03/14/25 07:39
Calcium 8.2 mg/dl (8.4-10.2) L 03/14/25 07:39
Physical Exam
-
NAD AAOx3
ABD: soft, ND, TTP LLQ and suprapubic
midline incision with JUAN J dressing
RLQ old ostomy site dressing clean and chico in place -
[2025-03-16 07:45] VITALS: BP 156/80
[2025-03-16] MEDS: LEXAPRO 20 MG PO (08:32)
[2025-03-16] MEDS: PROTONIX IV 40 MG IV (08:32)
[2025-03-16] MEDS: NSS (PRESERVATIVE FREE) 10 ML IV (08:33)
[2025-03-16 08:45] LABS: % Basophils 0.2 % (0-2); % Eosinophils 1.8 % (0-6); % Immature Granulocytes 0.4 % (0-0.5); % Lymphocytes 5.1 % (20.5-51.1); % Monocytes 4.6 % (1.7-9.3); % Neutrophils 87.9 % (42.2-75.2); Absolute Eosinophils 0.2 10^3/uL (0-0.7); Absolute Lymphocytes 0.5 10^3/uL (1.2-3.4); Absolute Monocytes 0.5 10^3/uL (0.1-0.6); Absolute Neutrophils 9.3 10^3/uL (1.4-6.5); Hematocrit 32.2 % (39.0-52.0); Hemoglobin 11.4 g/dL (13.0-18.0); Mean Corp Hgb Conc. 35.4 g/dL (33.0-37.0); Mean Corpuscular Hgb 30.2 pg (27.0-31.0); Mean Corpuscular Volume 85.2 fL (80.0-94.0); Mean Platelet Volume 9.7 fL (7.4-10.4); Nucleated Red Blood Cells % 0 % (-); Platelet Count 179 10^3/uL (130-400); Red Blood Cell Count 3.78 10^6/uL (4.70-6.10); White Blood Cell Count 10.6 10^3/uL (4.8-10.8)
[2025-03-16 09:00] LABS: Blood Urea Nitrogen 11 mg/dl (9-20); Calcium 8.3 mg/dl (8.4-10.2); Carbon Dioxide 22 mmol/L (22-30); Chloride 108 mmol/L (98-107); Estimated Creatinine Clearance > 125 ml/min; Glucose 92 mg/dl (70-99); Potassium 4.1 mmol/L (3.5-5.1); Sodium 141 mmol/L (135-145); eGFR > 60.00
--- NOTE | 2025-03-16 09:12 | W.PN.CRS1 ---
Today's Communication / Plan
-
maintain clears
adjusted pain medication
OOB
Assessment/Plan
-
44-year-old male with PMH of seizure disorder and diverticular stricture requiring subtotal colectomy with end ileostomy and multiple abdominal abscesses requiring IR drain who presents for elective surgery
POD 6 ex lap, lysis of adhesions, reversal of end ileostomy with ileorectal anastomosis, repair of abdominal hernias
AFVSS
WBC 10.6, Hgb 11.4
03/15- NGT removed
�Continue on clears today
- Adjusted pain medication. Added tylenol po, on Toradol 15mg q 6, adjusted Dilaudid IV
� Continue Lovenox; TEDS and SCDS.
� Encourage IS/OOB
� Appreciate general surgery
- Home meds restarted today
- JUAN J dressing to be changed by general surgery
Subjective Data
Procedure
03/11/25- Laparotomy with extensive lysis of adhesions and repair of hernias (Dr. Lerner). resection and closure of ileostomy (ileorectal anastomosis) and flexible sigmoidoscopy (Dr. Galvez)
Subjective Data
Date of Service: March 16, 2025
Patient states he has increased LLQ pain this morning. He has about 3 bowel movements an hour currently. He denies nausea or vomiting and has been tolerating clears.
Objective Data
-
Vital Signs
Temp Pulse Resp BP Pulse Ox
98.8 F 78 16 156/80 99
03/16/25 07:45 03/16/25 07:45 03/16/25 07:45 03/16/25 07:45 03/16/25 07:45
Intake & Output
03/15/25 03/16/25 03/17/25
06:59 06:59 06:59
Intake Total 1530 / 1530 200 / 200
Output Total 710 / 710
Balance 820 / 820 200 / 200
Intake:
IV fluids (Total) 1350 / 1350
IV piggybacks 200 / 200
Amount instilled into GI Tube ( 180 / 180
Total)
Gastrostomy 90 /
[place] Sump 90 / 90
Output:
Gastrointestinal tube output ( 710 / 710
Total)
Gastrostomy 510 / 510
[place] Sump 200 / 200
Other:
Number of approximated MODERATE 3
amounts of urine
Lab Results
03/16/25 08:18
03/16/25 08:18
Physical Exam
-
General: No Acute Distress and AOx3
Abdomen: Soft, Non Distended and Tender (LLQ)
Wound: Dressing in Place (JUAN J)
--- NOTE | 2025-03-16 09:26 | CM ---
Reviewed the chart notes. NGT removed yesterday. Clear liquid diet today. CM continues to be available to patient/family and is monitoring medical plan for needs at discharge.
Plan: Discharge to home with [facility] services when medically stable.
[2025-03-16] MEDS: TYLENOL 650 MG PO ×4 (10:18→21:28)
[2025-03-16] MEDS: NSS IV (13:45)
[2025-03-16 15:15] VITALS: BP 119/75
--- NOTE | 2025-03-16 16:00 | PTCARENOTE ---
Pt 1500 temp 100.3 recheck 1002. scheduled tylenol given 1340. Dr chowdary made aware. Care remains ongoing.
[2025-03-16] MEDS: LOVENOX 40 MG SC (17:15)
[2025-03-16] MEDS: DESYREL 50 MG PO (21:28)
[2025-03-16] MEDS: KEPPRA 1000 MG PO (21:28)
[2025-03-16 23:00] VITALS: BP 128/74
[2025-03-17] MEDS: TYLENOL 650 MG PO ×6 (02:12→22:55)
[2025-03-17] MEDS: TORADOL 15 MG IV ×3 (03:24→21:31)
[2025-03-17 06:00] VITALS: BMI 31.9
[2025-03-17 07:40] VITALS: BP 113/70
[2025-03-17] MEDS: LEXAPRO 20 MG PO (08:30)
[2025-03-17] MEDS: PROTONIX IV 40 MG IV (08:30)
[2025-03-17] MEDS: NSS (PRESERVATIVE FREE) 10 ML IV (08:31)
--- NOTE | 2025-03-17 09:32 | W.PN.GS2 ---
Addendum entered and electronically signed by Alberto Lerner MD 03/17/25 10:04:
Patient seen and examined in follow-up with surgical supplies sterilizer. Agree with documented progress note with additions noted here.
Patient feeling better this a.m. than yesterday. Last incisional pains. Reports had a good night sleep with trazodone as he takes at home.
Tolerating diet without nausea or vomiting
Requesting dietary advancement, no nausea
Continued stool frequency and loose consistency as anticipated
AFVSS
NAD AAO x 3
ABD: Soft, nondistended, minimal tenderness
JUAN J dressing in place without any staining and holding suction well
Right sided old ileostomy wound chico removed. Clean. Minimal drainage on gauze pad.
A/P: POD #6
Continue dietary advancement starting on full liquids with probable advancement as tolerated to regular
Maintain JUAN J dressing and additional 5 days if it holds negative pressure/suction
-- Okay to shower with juan j dressing in place, simply disconnect suction apparatus and reapply after showers
Original Note:
Today's Communication / Plan
-
Advance to full liquid diet
Assessment / Plan
-
Impression
Patient is a 44-year-old male with past medical history of seizure disorder and diverticular stricture requiring subtotal colectomy with end ileostomy, history of having [address] for abdominal abscesses, s/p exploratory laparotomy, lysis of
adhesions, exploration of previous gastrocutaneous fistula (no longer present) and reversal of ileostomy with ileorectal end to end anastomosis
Assessment:
Doing well postop
NG out
On clears, tolerating well
Mobile, going to the bathroom himself
On lab review
No leukocytosis
Hemoglobin stable
Normal serum electrolytes
Normal kidney and renal function
Mild hypocalcemia
Plan:
Optimize pain management
Start full liquid diet today
Continue to monitor CBC and BMP
Continue PT/OT
Subjective Data
-
Date of Service: March 17, 2025
Patient seen and examined at bedside
Patient slept well and comfortably overnight
Had a couple of loose stools overnight
Denies any nausea, vomiting or abdominal pain
Objective Data
-
Intake and Output
03/16/25 03/17/25 03/18/25
06:59 06:59 06:59
Intake Total 200 / 200
Balance 200 / 200
Intake:
IV piggybacks 200 / 200
Other:
Number of approximated MODERATE 4
amounts of urine
Vital Signs
Temp Pulse Resp BP Pulse Ox
97.9 F 72 18 113/70 97
03/17/25 07:40 03/17/25 07:40 03/17/25 07:40 03/17/25 07:40 03/17/25 07:40
Lab Results
03/16/25 08:18
03/16/25 08:18
Calcium 8.3 mg/dl (8.4-10.2) L 03/16/25 08:18
Physical Exam
-
No apparent distress
Abdomen soft, nondistended, nontender, normal bowel sounds, midline juan j dressing dry and intact, right-sided ostomy site dressing clean
Chest bilaterally clear to auscultation
Patient has a coto catheter: No
Patient has a central line: No
--- NOTE | 2025-03-17 10:44 | W.PN.CRS1 ---
Today's Communication / Plan
-
full liquid diet
wound care
Assessment/Plan
-
44-year-old male with PMH of seizure disorder and diverticular stricture requiring subtotal colectomy with end ileostomy and multiple abdominal abscesses requiring IR drain who presents for elective surgery
POD 7 ex lap, lysis of adhesions, reversal of end ileostomy with ileorectal anastomosis, repair of abdominal hernias
tmax 100.3. Vitals normal.
no labs today
03/15- NGT removed
�Advance to full liquids
- Pain control: tylenol po, on Toradol 15mg q 6, Dilaudid IV PRN
� Continue Lovenox; TEDS and SCDS.
� Encourage IS/OOB
� Appreciate general surgery
- JUAN J dressing to be changed by general surgery
Subjective Data
Procedure
03/11/25- Laparotomy with extensive lysis of adhesions and repair of hernias (Dr. Lerner). resection and closure of ileostomy (ileorectal anastomosis) and flexible sigmoidoscopy (Dr. Galvez)
Subjective Data
Date of Service: March 17, 2025
Patient states he is feeling better today. His pain has improved. He has lots of flatus. Denies leg pain. He is urinating without difficulty. He tolerated clears and is hungry for more.
Objective Data
-
Vital Signs
Temp Pulse Resp BP Pulse Ox
97.9 F 72 18 113/70 97
03/17/25 07:40 03/17/25 07:40 03/17/25 07:40 03/17/25 07:40 03/17/25 07:40
Intake & Output
03/16/25 03/17/25 03/18/25
06:59 06:59 06:59
Intake Total 200 / 200
Balance 200 / 200
Intake:
IV piggybacks 200 / 200
Other:
Number of approximated MODERATE 4
amounts of urine
Lab Results
03/16/25 08:18
03/16/25 08:18
Physical Exam
-
General: No Acute Distress
Abdomen: Soft, Non Distended and Tender (mild around incision)
Wound: Dressing Changed (some chico removed) and Dressing in Place
Incision: Clear, Dry, Intact
--- NOTE | 2025-03-17 14:56 | CM ---
Advanced to full liquids. Per therapy, no change in functional status. Discharge POC: Home with TING HONG RN.
[2025-03-17 15:40] VITALS: BP 110/67
[2025-03-17] MEDS: TORADOL IV (16:13)
[2025-03-17] MEDS: LOVENOX 40 MG SC (17:49)
[2025-03-17] MEDS: KEPPRA 1000 MG PO (21:31)
[2025-03-17] MEDS: DESYREL 50 MG PO (22:55)
[2025-03-17 23:00] VITALS: BP 121/73
[2025-03-18] MEDS: TYLENOL 650 MG PO ×5 (02:01→21:50)
[2025-03-18] MEDS: TORADOL 15 MG IV (03:46)
[2025-03-18 06:00] VITALS: BMI 31.5
--- NOTE | 2025-03-18 07:38 | W.PN.GS2 ---
Addendum entered and electronically signed by Eros Ortiz MD 03/18/25 09:00:
Patient seen and examined.
No complaints. Feels well. Denies worsening abdominal pain. No nausea or vomiting. Passing multiple loose stools. No fevers.
Gen: NAD
Abd: soft, NT, mild distension, non-peritoneal, midline JUAN J c/d/i, ostomy dressing changed, incision c/d/i - no erythema, ecchymosis or drainage, yvette in place
Patient is a 44 yo M with past medical history of seizure disorder and diverticular stricture requiring subtotal colectomy with end ileostomy, history of having [address] for abdominal abscesses.
POD#7 s/p exploratory laparotomy, lysis of adhesions, exploration of previous gastrocutaneous fistula (no longer present) and reversal of ileostomy with ileorectal end to end anastomosis
Doing well postop
NG out
Tolerating full liquids
Mobile, going to the bathroom himself
Plan:
-- Maintain juan j dressing, can shower by disconnecting the suction apparatus, reapply after showers
-- Advance to LRD
-- Pain control: Tylenol, Toradol, Oxycodone
-- Home meds
-- OOB/ambulate
-- DVT: Lovenox
-- GI: PPI
Original Note:
Today's Communication / Plan
-
Start low residue diet today
Assessment / Plan
-
Impression
Patient is a 44-year-old male with past medical history of seizure disorder and diverticular stricture requiring subtotal colectomy with end ileostomy, history of having [address] for abdominal abscesses, s/p exploratory laparotomy, lysis of
adhesions, exploration of previous gastrocutaneous fistula (no longer present) and reversal of ileostomy with ileorectal end to end anastomosis
Assessment:
Doing well postop
NG out
Tolerating full liquids
Mobile, going to the bathroom himself
On lab review
No leukocytosis
Hemoglobin stable
Normal serum electrolytes
Normal kidney and renal function
Mild hypocalcemia
Plan:
Maintain juan j dressing, can shower by disconnecting the suction apparatus, reapply after showers
Continue dietary advancement, consider advancing to soft diet today after consulting colorectal surgery
Optimize pain management
Continue to monitor CBC and BMP
Continue PT/OT
Subjective Data
-
Date of Service: March 18, 2025
Patient seen and examined on bedside
Sleeping well with the help of trazodone which he takes at home
Tolerating full liquid diet
Reports multiple bowel movements yesterday
Objective Data
-
Intake and Output
03/17/25 03/18/25 03/19/25
06:59 06:59 06:59
Other:
Number of approximated MODERATE 4 3
amounts of urine
Vital Signs
Temp Pulse Resp BP Pulse Ox
99.2 F 78 16 121/73 99
03/17/25 23:00 03/17/25 23:00 03/17/25 23:00 03/17/25 23:00 03/17/25 23:00
Lab Results
03/16/25 08:18
03/16/25 08:18
Calcium 8.3 mg/dl (8.4-10.2) L 03/16/25 08:18
Physical Exam
-
No apparent distress, lying comfortably in bed, breathing on room air
Abdomen soft, nondistended, nontender, midline incision with juan j dressing in place along with suction device, right sided old ileostomy wound with gauze pad having minimal drainage
Chest clear to auscultation
Patient has a coto catheter: No
Patient has a central line: No
[2025-03-18 07:55] VITALS: BP 104/69
[2025-03-18] MEDS: PROTONIX IV 40 MG IV (08:26)
[2025-03-18] MEDS: NSS (PRESERVATIVE FREE) 10 ML IV (08:26)
[2025-03-18] MEDS: LEXAPRO 20 MG PO (08:31)
[2025-03-18] MEDS: TORADOL IV ×3 (08:32→21:50)
--- NOTE | 2025-03-18 09:57 | W.PN.CRS1 ---
Today's Communication / Plan
-
low residue
possible dc later today
Assessment/Plan
-
44-year-old male with PMH of seizure disorder and diverticular stricture requiring subtotal colectomy with end ileostomy and multiple abdominal abscesses requiring IR drain who presents for elective surgery
POD 8 ex lap, lysis of adhesions, reversal of end ileostomy with ileorectal anastomosis, repair of abdominal hernias
itals normal.
no labs today
03/15- NGT removed
�Advance to low residue
- Pain control: Tylenol po, on Toradol 15mg q 6, Dilaudid IV PRN
� Continue Lovenox; TEDS and SCDS.
� Encourage IS/OOB
� Appreciate general surgery
- JUAN J dressing to be changed by general surgery
- If doing well later today, okay for discharge from our perspective. Will need to tolerate a diet prior to leaving. Okay to shower from our perspective. Follow up with Dr. Galvez in 2 weeks from discharge. Discussed with general surgery KILN BURNER HELPER, [place].
Subjective Data
Procedure
03/11/25- Laparotomy with extensive lysis of adhesions and repair of hernias (Dr. Lerner). resection and closure of ileostomy (ileorectal anastomosis) and flexible sigmoidoscopy (Dr. Galvez)
Subjective Data
Date of Service: March 18, 2025
Patient states he is feeling very well today. He denies nausea or vomiting. His pain is controlled. He is hungry to try more solid food. He had bowel movements multiple times yesterday.
Objective Data
-
Vital Signs
Temp Pulse Resp BP Pulse Ox
98.6 F 71 16 104/69 98
03/18/25 07:55 03/18/25 07:55 03/18/25 07:55 03/18/25 07:55 03/18/25 07:55
Intake & Output
03/17/25 03/18/25 03/19/25
06:59 06:59 06:59
Other:
Number of approximated MODERATE 4 3
amounts of urine
Lab Results
03/16/25 08:18
03/16/25 08:18
Physical Exam
-
General: No Acute Distress and AOx3
Abdomen: Soft, Non Distended and Non Tender
Wound: Dressing Changed
Incision: Clear, Dry, Intact
--- NOTE | 2025-03-18 10:34 | CM ---
Reviewed the chart notes and spoke with the patient at the bedside. The patient's diet has been advanced to low residue. CM continues to be available to patient/family and is monitoring medical plan for needs at discharge.
Plan: Discharge to home with [facility] services.
[2025-03-18] MEDS: TYLENOL PO ×2 (12:06→17:37)
[2025-03-18 16:00] VITALS: BP 118/70
[2025-03-18] MEDS: LOVENOX 40 MG SC (17:22)
[2025-03-18] MEDS: KEPPRA 1000 MG PO (21:50)
[2025-03-18] MEDS: DESYREL 50 MG PO (21:53)
[2025-03-18 23:47] VITALS: BP 114/72
[2025-03-19] MEDS: TYLENOL 650 MG PO ×3 (01:45→09:16)
[2025-03-19] MEDS: TORADOL IV ×2 (03:00→09:21)
[2025-03-19 07:16] VITALS: BMI 31.3
[2025-03-19 07:55] VITALS: BP 118/67
[2025-03-19] MEDS: NSS (PRESERVATIVE FREE) 10 ML IV (09:15)
[2025-03-19] MEDS: LEXAPRO 20 MG PO (09:16)
[2025-03-19] MEDS: PROTONIX IV 40 MG IV (09:16)
--- NOTE | 2025-03-19 09:24 | W.PN.GS2 ---
Today's Communication / Plan
-
D/c
Assessment / Plan
-
44-year-old male with PMH of seizure disorder and diverticular stricture requiring subtotal colectomy with end ileostomy and multiple abdominal abscesses requiring IR drain who presents for elective surgery
POD #8 status post ex lap, ANTONIO, exploration of previous GC fistula site and reversal of ileostomy with ileorectal anastomosis
AFVSS
Tolerating diet, passing flatus/stools
Plan
C/W LRD
Analgesics prn
JUAN J removed at bedside, plan for plain gauze dressing
D/C to home
Subjective Data
-
Date of Service: March 19, 2025
Patient seen and examined at bedside with Dr. Philip. Cabrera n/v. Tolerating diet. Pain minimal and much improved. Passing flatus/stools.
Objective Data
-
Intake and Output
03/18/25 03/19/25 03/20/25
06:59 06:59 06:59
Intake Total 680 / 680 1440 / 1440
Balance 680 / 680 1440 / 1440
Intake:
Oral fluids 680 / 680 1440 / 1440
Other:
Number of approximated MODERATE 3 2 5
amounts of urine
Number of approximated LARGE 1
amounts of urine
Vital Signs
Temp Pulse Resp BP Pulse Ox
99.4 F 75 16 118/67 97
03/19/25 07:55 03/19/25 07:55 03/19/25 07:55 03/19/25 07:55 03/19/25 07:55
Lab Results
03/16/25 08:18
03/16/25 08:18
Calcium 8.3 mg/dl (8.4-10.2) L 03/16/25 08:18
Physical Exam
-
NAD
ABD soft, nd, minimal incisional tenderness
JUAN J removed: midline incision with intact yvette, old ostomy site with intact yvette: dressings changed
Patient has a coto catheter: No
Patient has a central line: No
--- NOTE | 2025-03-19 09:35 | W.DS.TRANS ---
Addendum entered and electronically signed by JUANJOSE Montgomery 03/19/25 11:05:
dictated #[id number]
Original Note:
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
-
Discharge Instructions:
Sleep Apnea Risk Low
Discharge Diagnosis/Procedures Ileostomy reversal, lysis of adhesions
Diet Low Fiber
Activity No strenuous activity
Additional Activity Do not lift over 15-20lbs for the next 4-6 weeks
Driving Restrictions Wait until comfortable twisting, off narctocis
Bathing Restrictions OK to Shower
Wound Care Continue to cover the right sided incision and
midline incision with dry gauze dressings until
drainage no longer present, ok to remove for
showers. [place] will be removed at your follow
up appointment with your surgeon.
Instructions: Low-fiber diet
Stand-Alone Forms:
Changes to Home Medications: No
Discharge Medications:
DC Medications w/original date entered in [facility]
levetiracetam 500 mg tablet,extended release 24 hr 1,000 mg (2 x 500 mg) PO HS ##60 04/28/19
escitalopram oxalate 20 mg tablet 20 mg PO DAILY Depression 05/14/23
melatonin 3 mg tablet 3 mg PO HS PRN Sleep 05/14/23
multivitamin 2 tab PO DAILY Supplement 05/14/23
sildenafil (pulm.hypertension) 20 mg tablet 20 mg PO DAILYPRN PRN ed 05/14/23
ferrous sulfate 325 mg (65 mg iron) tablet (FeroSul) 325 mg PO BID Supplement 01/14/24
acetaminophen 325 mg tablet (Tylenol) 650 mg PO Q4HPRN PRN mild pain 02/24/24
pantoprazole 40 mg tablet,delayed release (Protonix) 40 mg PO DAILY Gastrointestinal Issue 02/24/24
lorazepam 0.5 mg tablet 0.5 mg PO BID PRN anxiety 03/04/25
trazodone 50 mg tablet 50 mg PO HS Sleep 03/04/25
oxycodone 5 mg tablet 5 mg PO Q4HPRN PRN breakthrough/severe pain #5 tabs 03/19/25
Home Medication Changes
Pending Results: No
--- NOTE | 2025-03-19 10:59 | CM ---
Patient has been medically cleared for discharge to home with TING HONG RN. Patient arranged for transport home.
== END 2025-03-19 10:24 | disposition home health service (06) | DRG 330 ==
LOC: 2 SOUTH 06:07
PROVIDERS: Surgery; ADMITTING PHYSICIAN Surgery; FAMILY PHYSICIAN Family Medicine; REFERRING PHYSICIAN Surgery
PROC: 0DBB0ZZ Excision of Ileum, Open Approach (ICD-10-PCS; 2025-03-11)
PROC: 0WQF0ZZ Repair Abdominal Wall, Open Approach (ICD-10-PCS; 2025-03-11)
PROC: 0DNW0ZZ Release Peritoneum, Open Approach (ICD-10-PCS; 2025-03-11)
DX: Z43.2 Encounter for attention to ileostomy (principal); D62 Acute posthemorrhagic anemia; K63.2 Fistula of intestine; K56.7 Ileus, unspecified; K43.5 Parastomal hernia without obstruction or gangrene; K66.0 Peritoneal adhesions (postprocedural) (postinfection); G40.909 Epilepsy, unspecified, not intractable, without status epilepticus; K43.2 Incisional hernia without obstruction or gangrene; K62.89 Other specified diseases of anus and rectum
CPT/HCPCS: 88304; 80048; 83036; 85025; 85027; 85610; 85730; 86850; 86900; 86901; 87086; 93005; C1776; J1335

== ENCOUNTER → 2025-09-05 14:24 | Outpatient (REF) | payer OTHER, SELFPAY | LOC: MRI 3T 14:24 | PROVIDERS: ATTENDING PHYSICIAN Surgery; FAMILY PHYSICIAN Family Medicine | DX: R60.0 Localized edema (principal) | CPT/HCPCS: 72197; A9575 ==